=== PATIENT | female | born 1965 | race Caucasian/White ===

== ENCOUNTER → 2016-07-14 | Day surgery (SDC) | payer OTHER ==
[~2016-07-14] MED LIST: BUPIVACAINE/EPINEPHRINE 0.5% PF 10 ML VIAL ONE; HYDR-2376 PO; LACTATED RINGER'S 1000 ML INJ 1,000 ML ONE; LIDOCAINE 1%/EPINEPHrine 1:100,000 SOLN 20 ML VIAL ONE; MEPERIDINE HCL 25 MG/ML VIAL ONE; MIDAZOLAM HCL 2 MG/2 ML VIAL ONE; PROPOFOL 200 MG/20 ML AMP IV ONE; PROPOFOL 500 MG/50 ML BTL IV ONE; SODIUM CHLORIDE 0.9% INJ 10 ML ONE; VANCOMYCIN HCL 1000 MG VIAL ONE
--- NOTE | 2016-07-14 13:18 | TN ---
cc: CARINA WINTER M.D., RUBY ANNE E. M.D. DATE OF SURGERY: 07/14/2016 PREOPERATIVE DIAGNOSIS Breast cancer in need of neoadjuvant chemotherapy. POSTOPERATIVE DIAGNOSIS Breast cancer in need of neoadjuvant chemotherapy. PROCEDURE Placement of a left side Vvcsgv-U-Ygnm, first by attempted Seldinger technique, next attempted cutdown, next direct placement into the left subclavian vein with a Seldinger technique. ANESTHESIA TIVA. SURGEON Dr. Winter INDICATION this is a pleasant 51-year-old female who was found to have right-sided breast cancer. She is getting neoadjuvant chemotherapy. DETAILS OF PROCEDURE The patient was taken to the operating room and placed in supine position. After anesthesia her left shoulder is prepped with Betadine and she is given preoperative antibiotics. We anesthetize the area and infraclavicular area, attempt to cannulate the subclavian vein on a few attends, about five, able to cannulate the subclavian vein but the guidewire does not thread through. I do not know if it is narrowed but this is abandoned. We then do a cutdown identifying the small vein in the deltopectoral groove, isolating it with ties proximally and distally. We make a small venotomy and try to thread the guidewire into this branching vein. However, the vein is somewhat small and does not accommodate the guidewire and it tears. This small branch is then ligated. With the exposure of the vein I then attempt to do direct access to the subclavian which I am able to do without difficulty under fluoroscopic guidance. The guidewire that threads easily into the superior vena cava. The introducer dilator is then threaded over the guidewire under direct videoscopic surveillance. The dilator is then removed and the catheter is threaded over the introducer so it lays in the superior vena cava. The introducer is then removed. The catheter is cut at 22 cm and connected to the port. It aspirates blood quite easily and is flushed with heparinized saline solution. We then make a subcutaneous pocket, securing the port to the deep layer with 3-0 Vicryl. The deep layer is closed with 3-0 Vicryl and skin is closed with 4-0 Vicryl. Steri-Strips are applied. Sterile bandage applied. The patient tolerated the procedure well and had no immediate post-op complications. A stat. portable chest x-ray is done which shows the Akontb-U-Pxov in good position. Carina Winter MD JDB/BT /1:05 PM /1:11 PM
== END | disposition home or self-care (01) ==
LOC: ESDC 07:05
PROVIDERS: ATTEND Surgery
DX: Z45.2 Encounter for adjustment and management of vascular access device (principal); C50.911 Malignant neoplasm of unspecified site of right female breast
CPT/HCPCS: 00532; 36561; 77001; C1788; J1642; J2175; J2250; J3010; J3370; J7120

== ENCOUNTER → 2016-12-09 | Outpatient (CLI) | payer OTHER ==
[~2016-12-09] MED LIST changes: -BUPIVACAINE/EPINEPHRINE 0.5% PF 10 ML VIAL ONE; -LACTATED RINGER'S 1000 ML INJ 1,000 ML ONE; -LIDOCAINE 1%/EPINEPHrine 1:100,000 SOLN 20 ML VIAL ONE; -MEPERIDINE HCL 25 MG/ML VIAL ONE; -MIDAZOLAM HCL 2 MG/2 ML VIAL ONE; -PROPOFOL 200 MG/20 ML AMP IV ONE; -PROPOFOL 500 MG/50 ML BTL IV ONE; -SODIUM CHLORIDE 0.9% INJ 10 ML ONE; -VANCOMYCIN HCL 1000 MG VIAL ONE
[2016-12-09 11:22] LABS: AUTOMATED NEUTROPHIL # 10.3 TH/MM3 (1.8-7.7); BASOPHIL # 0.1 TH/MM3 (0-0.2); BASOPHIL % 0.4 % (0.0-2.0); EOSINOPHIL # 0.2 TH/MM3 (0-0.4); EOSINOPHIL % 1.5 % (0.0-4.0); HEMATOCRIT 39.9 % (35.0-46.0); HEMOGLOBIN 13.4 GM/DL (11.6-15.3); LYMPHOCYTE # 1.4 TH/MM3 (1.0-4.8); MEAN CELL VOLUME 91.8 FL (80.0-100.0); MEAN CORPUSCULAR HEMOGLOBIN 30.7 PG (27.0-34.0); MEAN CORPUSCULAR HGB CONC 33.5 % (32.0-36.0); MEAN PLATELET VOLUME 8.3 FL (7.0-11.0); MONO % 4.6 % (0.0-8.0); MONOCYTE # 0.6 TH/MM3 (0-0.9); NEUT % 82.5 % (16.0-70.0); PLATELET COUNT 305 TH/MM3 (150-450); RED BLOOD COUNT 4.35 MIL/MM3 (4.00-5.30); RED CELL DISTRIBUTION WIDTH 12.8 % (11.6-17.2); WHITE BLOOD COUNT 12.5 TH/MM3 (4.0-11.0)
== END ==
LOC: CPRE 08:40
PROVIDERS: ATTEND Surgery
DX: Z01.812 Encounter for preprocedural laboratory examination (principal); C50.811 Malignant neoplasm of overlapping sites of right female breast
CPT/HCPCS: 36415; 85025

== ENCOUNTER 2016-12-13 07:23 | Inpatient (IN) | payer OTHER ==
[~2016-12-13] VITALS: Ht 170.2 cm; Wt 66.1 kg
[2016-12-13] MEDS: POVIDONE IODINE 5% (ANTISEPSIS KIT) 4 APPLICATIONS EACH NARE PRN ×2 (08:40→18:35)
[2016-12-13] MEDS ORDERED: INSULIN HUMAN REGULAR 1,000 UNITS/10 ML VIAL SQ PRN (08:45)
[2016-12-13] MEDS ORDERED: SODIUM CHLORID 0.9% 500 ML IV PRN (08:45)
[2016-12-13] MEDS ORDERED: CHLORHEXIDINE GLUCONATE 2 % 1 PACK (2 CLOTHS) TOPICAL PRN (08:45)
[2016-12-13] MEDS ORDERED: METOPROLOL TARTRATE 25 MG TAB PO PRN (08:45)
[2016-12-13] MEDS ORDERED: LACTATED RINGER'S 1000 ML IV PRN (08:45)
[2016-12-13] MEDS ORDERED: VANCOMYCIN HCL 1000 MG ON-CALL/NS 250 ML IV SCH ×2 (08:45)
[2016-12-13 08:56] LABS: AUTOMATED NEUTROPHIL # 4.4 TH/MM3 (1.8-7.7); BASOPHIL % 0.6 % (0.0-2.0); EOSINOPHIL # 0.2 TH/MM3 (0-0.4); EOSINOPHIL % 2.9 % (0.0-4.0); HEMATOCRIT 36.3 % (35.0-46.0); HEMOGLOBIN 12.7 GM/DL (11.6-15.3); LYMPH % 20.4 % (9.0-44.0); LYMPHOCYTE # 1.3 TH/MM3 (1.0-4.8); MEAN CELL VOLUME 89.6 FL (80.0-100.0); MEAN CORPUSCULAR HEMOGLOBIN 31.2 PG (27.0-34.0); MEAN CORPUSCULAR HGB CONC 34.8 % (32.0-36.0); MONO % 6.8 % (0.0-8.0); MONOCYTE # 0.4 TH/MM3 (0-0.9); NEUT % 69.3 % (16.0-70.0); PLATELET COUNT 262 TH/MM3 (150-450); RED BLOOD COUNT 4.05 MIL/MM3 (4.00-5.30); RED CELL DISTRIBUTION WIDTH 12.8 % (11.6-17.2); WHITE BLOOD COUNT 6.3 TH/MM3 (4.0-11.0)
[2016-12-13] MEDS ORDERED: ACETAMINOPHEN 1000 MG/100 ML VIAL IV ONE (09:00)
[2016-12-13 09:29] VITALS: BP 122/85; PULSE 75; RESP 14; TEMP 97.9; O2SAT 98
[2016-12-13] MEDS ORDERED: APREPITANT 40 MG CAP PO ONE (10:00)
--- NOTE | 2016-12-13 11:19 | RADRPT ---
EXAM DATE/TIME: 12/13/2016 09:25 [facility] COMPARISON: No previous studies available for comparison. INDICATIONS : Breast cancer. MEDICAL HISTORY : Carcinoma, breast. Osteoarthritis. SURGICAL HISTORY : Right femur fracture repair. Left patella surgery. Left tibia surgery. Right knee scope. ENCOUNTER: Initial ACUITY: 4-6 months PAIN SCORE: 0/10 LOCATION: Right breast. AREA EVALUATED: Right breast, upper outer quadrant at 11 o'clock Radiopharmaceutical dose: 1.1 Tc99m [place] colloid FINDINGS: Breast ultrasound was performed prior to lymphoscintigraphy. CONCLUSION: Ultrasound-guided lymphoscintigraphy injections. Jabier Blue MD on December 13, 2016 at 11:16 Board Certified Radiologist. This report was verified electronically.
[2016-12-13] MEDS ORDERED: ePHEDrine/NS 25 MG/5 ML SYR IV ONE (12:00)
[2016-12-13] MEDS ORDERED: PROPOFOL 200 MG/20 ML AMP IV ONE (12:00)
[2016-12-13] MEDS ORDERED: NEOSTIGMINE 3 MG/3 ML SYR IV ONE (12:00)
[2016-12-13] MEDS ORDERED: ONDANSETRON HCL 4 MG/2 ML VIAL IV PUSH ONE (12:00)
[2016-12-13] MEDS ORDERED: GLYCOPYRROLATE 1 MG/5 ML SYRINGE IV PUSH ONE (12:00)
[2016-12-13] MEDS ORDERED: LACTATED RINGER'S 1000 ML INJ 2,000 ML IV ONE (12:00)
[2016-12-13] MEDS ORDERED: LIDOCAINE HCL 1% PF 5 ML AMPULE OTHER ONE (12:00)
[2016-12-13] MEDS ORDERED: DEXAMETHASONE SOD PHOS 4 MG/ML VIAL IV ONE (12:00)
[2016-12-13] MEDS ORDERED: NORMOSOL R INJ 1,000 ML IV ONE (12:00)
[2016-12-13] MEDS ORDERED: MIDAZOLAM HCL 2 MG/2 ML VIAL IV ONE (12:00)
[2016-12-13] MEDS ORDERED: ROCURONIUM INJ 50 MG/5 ML SYRINGE IV PUSH ONE (12:00)
[2016-12-13] MEDS ORDERED: PHENYLEPH/NS 1000 MCG/10 ML SYR IV ONE (12:00)
[2016-12-13] MEDS ORDERED: MORPHINE SULFATE 4 MG/ML INJ IV ONE (12:00)
[2016-12-13] MEDS ORDERED: VECURONIUM BROMIDE 20 MG VIAL IV ONE (12:00)
[2016-12-13] MEDS: ceFAZolin 2 GM PREMIX 50 ML IV SCH (12:12)
--- NOTE | 2016-12-13 12:12 | EKG ---
Date Performed: 12/13/2016 Time Performed: 08:13:42 PTAGE: 51 years EKG: Sinus rhythm NORMAL ECG NO PREVIOUS TRACING DOCTOR: Epifanio Villanueva Interpretating Date/Time 12/13/2016 12:11:27
--- NOTE | 2016-12-13 12:12 | EKG ---
Date Performed: 12/13/2016 Time Performed: 08:13:42 PTAGE: 51 years EKG: Sinus rhythm NORMAL ECG NO PREVIOUS TRACING DOCTOR: Epifanio Villanueva Interpretating Date/Time 12/13/2016 12:11:27
--- NOTE | 2016-12-13 12:12 | EKG ---
Date Performed: 12/13/2016 Time Performed: 08:13:42 PTAGE: 51 years EKG: Sinus rhythm NORMAL ECG NO PREVIOUS TRACING DOCTOR: Epifanio Villanueva Interpretating Date/Time 12/13/2016 12:11:27
[2016-12-13] MEDS ORDERED: HEPARIN SODIUM - SQ 10,000 UNITS/ML VIAL ONE (12:29)
[2016-12-13] MEDS ORDERED: BUPIVACAINE/EPINEPHRINE 0.5% 50 ML VIAL ONE (12:29)
[2016-12-13] MEDS ORDERED: TRIAMCINOLONE ACETONIDE 40 MG/ML VIAL ONE (12:30)
[2016-12-13] MEDS ORDERED: LIDOCAINE 1%/EPINEPHrine 1:100,000 SOLN 50 ML VIAL ONE (12:31)
[2016-12-13] MEDS ORDERED: GENTAMICIN SULFATE 80 MG/2 ML VIAL ONE (12:31)
[2016-12-13] MEDS ORDERED: FLUORESCEIN SOD 10% SOLN 500 MG/5 ML AMP ONE (12:31)
[2016-12-13] MEDS ORDERED: ceFAZolin INJ 1,000 MG VIAL ONE (12:31)
[2016-12-13] MEDS ORDERED: KETAMINE HCL 500 MG/5 ML VIAL ONE (12:44)
--- NOTE | 2016-12-13 13:01 | RADRPT ---
EXAM DATE/TIME: 12/13/2016 09:56 [facility] COMPARISON: No previous studies available for comparison. INDICATIONS : Right breast cancer. DOSE: 1.1 mCi Tc99m Sulfur Colloid INJECTION SITE: Right Breast IMAGING: SPECT/CT imaging with fusion was performed. RADIATION DOSE: CTDIvol (mGy) MEDICAL HISTORY : Carcinoma, breast. SURGICAL HISTORY : Orthopedic. ENCOUNTER: Initial ACUITY: 1 day PAIN SCALE: LOCATION: Right Breast. TECHNIQUE: Injection(s) of sulfur colloid was performed under sonographic guidance. Static imaging was obtained .. FINDINGS: After radioisotope injection this subcutaneously and subdermally within the right breast lymphoscinti graphy study was performed. AP and lateral views confirm a sentinel node uptake within the right axil la. The sentinel node was marked in the AP and lateral views and the patient was sent for surgical re section. CONCLUSION: Positive sentinel node uptake within the right axilla which was marked for resection. Jabier Blue MD on December 13, 2016 at 12:57 Board Certified Radiologist. This report was verified electronically.
[2016-12-13] MEDS ORDERED: PROPOFOL 500 MG/50 ML INJ 50 ML ONE (16:36)
[2016-12-13] MEDS ORDERED: BACITRACIN IM FOR SOLN 50,000 UNIT VIAL IRRIGATION ONE (18:35)
[2016-12-13] MEDS ORDERED: ACETAMINOPHEN 1000 MG/100 ML 100 ML IV ONE (19:09)
[2016-12-13 19:11] LABS: HEMATOCRIT 26.3 % (35.0-46.0); MEAN CELL VOLUME 90.3 FL (80.0-100.0); MEAN CORPUSCULAR HGB CONC 34.4 % (32.0-36.0); MEAN PLATELET VOLUME 7.7 FL (7.0-11.0); PLATELET COUNT 236 TH/MM3 (150-450); RED BLOOD COUNT 2.91 MIL/MM3 (4.00-5.30); RED CELL DISTRIBUTION WIDTH 12.7 % (11.6-17.2); WHITE BLOOD COUNT 13.1 TH/MM3 (4.0-11.0)
[2016-12-13] MEDS ORDERED: MUPIROCIN 2% OINT 22 GM TUBE ONE (19:25)
[2016-12-13] MEDS ORDERED: *morphine SULFATE 8 MG/ML PERIprocedure ONLY ONE ×3 (20:03→20:42)
[2016-12-13] MEDS ORDERED: DEXTROSE 5%-LACTATED RING INJ 1,000 ML ONE (20:34)
[2016-12-13 20:53] VITALS: BP 122/59; PULSE 57; RESP 10; TEMP 97.6; O2SAT 98
[2016-12-13] MEDS: DEXTROSE 5%-LACTATED RING INJ 1,000 ML IV SCH (21:00)
[2016-12-13] MEDS: NAPROXEN 500 MG TAB PO SCH (21:00)
--- NOTE | 2016-12-13 21:05 | RADRPT ---
EXAM DATE/TIME: 12/13/2016 20:08 [facility] COMPARISON: No previous studies available for comparison. INDICATIONS : Evaluate central line placement MEDICAL HISTORY : Carcinoma, breast. Osteoarthritis SURGICAL HISTORY : Right femur fracture repair. Left patella surgery. Left tibia surgery. Right knee scope ENCOUNTER: Initial ACUITY: 1 day PAIN SCORE: Non-responsive. LOCATION: chest FINDINGS: A single AP semierect view of the chest was obtained and demonstrates a right internal jugular centra l venous line in place with no pneumothorax. There is hazy opacity projected over the left infrahilar region and left lung base. A surgical drain is noted in place. There is a right breast implant with surgical drain as well. There are multiple overlying skin ashely. CONCLUSION: 1. Right internal jugular central venous line with no visualized pneumothorax. 2. Hazy opacity projected over the left lung base which could represent infiltrate versus overlying s oft tissue swelling from the surgery. Edmond Robison MD on December 13, 2016 at 21:02 Board Certified Radiologist. This report was verified electronically.
[2016-12-13] MEDS ORDERED: *HYDROmorphone PF 1 MG VIAL PERIprocedural Use ONLY ONE (21:06)
[2016-12-13] MEDS ORDERED: SODIUM CHLORIDE FLUSH PRN IV FLUSH (21:15)
[2016-12-13 23:24] VITALS: BP 125/61; PULSE 87; RESP 14; TEMP 97.3; O2SAT 99
[2016-12-13 23:40] VITALS: BP 111/57; PULSE 62; RESP 12; TEMP 97.1; O2SAT 96
[2016-12-14] MEDS: MORPHINE SULFATE 2 MG/ML INJ IV PRN ×2 (00:01→05:51)
[2016-12-14 02:03] VITALS: BP 120/68; PULSE 89; RESP 12; TEMP 97.5; O2SAT 99
[2016-12-14] MEDS: MORPHINE SULFATE 8 MG/ML INJ IV PUSH PRN ×2 (02:12→09:40)
[2016-12-14] MEDS: ACETAMINOPHEN 1000 MG/100 ML 100 ML IV SCH ×2 (02:13→09:32)
[2016-12-14 04:34] VITALS: BP 111/59; PULSE 84; RESP 18; TEMP 95.6; O2SAT 96
[2016-12-14] MEDS: DEXTROSE 5%-LACTATED RING INJ 1,000 ML IV SCH (05:54)
[2016-12-14 05:57] LABS: HEMATOCRIT 33.9 % (35.0-46.0); HEMOGLOBIN 11.7 GM/DL (11.6-15.3)
--- NOTE | 2016-12-14 07:39 | MP ---
cc: DARION ASHLEY M.D. DATE OF SURGERY 12/13/2016 PREOPERATIVE DIAGNOSIS 1. Carcinoma right breast very large. 2. High-risk breast cancer left breast. 3. Post chemotherapy treatment of breast and patient. POSTOPERATIVE DIAGNOSIS 1. Carcinoma right breast very large. 2. High-risk breast cancer left breast. 3. Post chemotherapy treatment of breast and patient. OPERATION PERFORMED 1. Right modified radical mastectomy and sentinel node biopsies of the right breast by Dr. Winter. 2. Left modified radical mastectomy by Dr. Ashley. 3. Right latissimus dorsi myocutaneous flap. 4. Right pectoralis major muscle flap. 5. Right breast reconstruction with submuscular silicone [place] textured gel high-profile 400 cc mammary prosthesis, reference number [id number], serial number [id number], 400 cc on the right, right breast reconstruction. 6. Left latissimus dorsi myocutaneous flap, left pectoralis major muscle flap, left breast reconstruction with [place] silicone textured high profile gel-filled mammary prosthesis reference [id number], serial number [id number], 400 cc breast reconstruction, left. SURGEON Dr. Darion Ashley SAND MIXER OPERATOR ANESTHESIA General endotracheal ESTIMATED BLOOD LOSS 1000 cc COMPLICATIONS None DRAINS One 7-mm Dawson-Hughes drain to the right axilla and breast reconstruction, one to the left chest, breast and axilla, one to the right donor site of the latissimus dorsi and one to the donor site of the left latissimus dorsi. DESCRIPTION OF OPERATION The patient was seen in the preop area. The midline was marked iliac crest down to the latissimus dorsi muscle were marked. The ellipse of skin to be removed starting superiorly medially going down inferior laterally was marked over the latissimus dorsi muscle on both sides. The elliptical excision to remove the nipple-areolar complex and then the nipple across the breast was marked. The patient was given IV vancomycin and Ancef in the preop area. She was brought to the OR where she was placed on the operating table. She was prewarmed with a bear hugger. Pneumatic compression garments placed on her lower extremities. A time-out was done, all concurred. Using about 1500 cc of Ringer's lactate with Xylocaine and epinephrine, the retromammary space was ejected with this fluid as was the right and left back. Dr. Winter performed a right modified radical mastectomy with sentinel node biopsies. He will dictate that separately. At this time, Dr. Ashley did an elliptical excision as drawn going down through the skin and subcutaneous tissue, superficial fascia, and to just below the subcutaneous tissue. The subcutaneous tissue was dissected up to just below the clavicle to just off the midline out into the axilla, across the axilla down to the latissimus dorsi muscle which was identified. The dissection was carried out inferiorly, but just below the inframammary crease. The breast tissue was then dissected off the chest wall with the gold implant intact dissecting and taking the pectoralis fascia with it and dissecting across the axilla and removing the lower axillary lymph nodes which were marked with a black silk suture and sent to pathology for examination. Meticulous hemostasis was obtained with electrocautery. The latissimus dorsi muscle was dissected from the subcutaneous tissue on the back and up to as up high as possible and as low as possible with the latissimus dorsi muscle and dissected down off the serratus anterior. The thoracodorsal nerve, artery and vein were identified and preserved from injury. The pectoralis major muscle was elevated and dissected up to the level of the clavicle, released three-quarters of the way off the medial area. The area was packed. The similar dissection was carried out on the right latissimus dorsi muscle and pectoralis major muscle. The patient was then turned to the right side up, left side down and axillary roll was inserted. She was very carefully positioned, stanley bag was inflated and the ellipse of skin that had been marked was then cut full-thickness down through the skin, subcutaneous tissue, and superficial fascia down to the latissimus dorsi muscle. The latissimus dorsi muscle was dissected from the overlying soft tissue up to into the dissection on the axilla and up around the back and down to the iliac crest. Muscle was dissected off the chest wall and off the serratus anterior and away from the trapezius. It was transected inferiorly and then rotated into the defect. The meticulous hemostasis obtained with electrocautery. The wound was drained with a stab wound with a 7-mm Dawson-Hughes drain sutured in place with 2-0 Vicryl suture. The subcutaneous tissue was sutured down to the fascia of the back and chest wall with three rows of interrupted running #1 Vicryl sutures to try to close off the space. The superficial fascia was then closed with a running 2-0 PDS suture and then the skin was closed with patient 2-0 PDS sutures and finally it was glued with surgical glue and allowed to dry. The patient was turned from the right side up to the right side down left side up and a similar procedure was carried on the left latissimus dorsi muscle. It was dissected down to the iliac crest, up into the axillary area off the serratus anterior and then trapezius, released and rotated into the defect of the mastectomy. The back wound was closed in a similar manner closing the space with a running #1 Vicryl, closing the wound with a running 2-0 PDS suture and the skin was closed with interrupted buried subcuticular 4-0 PDS sutures and then Dermabond skin closure. The patient was then turned into a supine position with arms out. The breasts and chest were prepped and draped sterilely again and the right breast was addressed. The ashely that had been placed to close the skin wound and protect the flap were removed and the latissimus dorsi muscle was sutured up to the pectoralis fascia starting laterally and going right below the clavicle suturing with a running 2-0 PDS suture going all the way to the medial area and tying and then taking a second PDS suture taking the latissimus muscle and suturing it high on the chest wall in the anterior axillary area and then suturing it down. The muscle was turned over and the pectoralis major muscle was sutured up to the back of the latissimus dorsi with a running 2-0 PDS suture. The medial closure was then carried down to the bottom of the inframammary crease medially and then laterally. Unfortunately, there were no trial implants that could be used. There was no a Crespo funnel, so the pocket was instilled with bacitracin, Ancef, gentamicin, Marcaine and Betadine and then the surgeon's gloves were changed and very carefully the implant was inserted and positioned. The inferior closure was complete. The skin was then brought over the new breast and sutured with interrupted vertical mattress sutures of 4-0 Prolene and then skin ashely. This gave a very nice good projection and the skin was warm, pink and viable with good capillary filling. The left breast was then reconstructed in a similar manner creating the latissimus dorsi suturing to the chest wall medially and laterally and superiorly and suturing the pectoralis major up to the back of the latissimus dorsi muscle in a similar manner. The surgeon's gloves were again changed after instilling the pocket with bacitracin, Ancef, gentamicin and Marcaine and Betadine. The gloves were changed and a sterile no-touch technique as possible, the implant was inserted and closure was complete. The skin was closed with interrupted vertical mattress sutures of 4-0 Prolene and skin ashely closed the wounds nicely. She had relatively good symmetry and projection and the skin flaps were warm, pink and viable with good capillary filling. Bactroban ointment was applied, 4x4s, ABD's were applied. Bactroban was applied around the drains and gauze was applied around the drains. The patient was sat up, the back was cleaned and the dressings were applied and the patient was placed in a bra. The patient was then awakened, extubated, transferred to a stretcher and sent to recovery in satisfactory condition. MD MAN Posadsa/KOBY /7:42 PM /7:12 AM
[2016-12-14 07:53] VITALS: BP 116/63; PULSE 89; RESP 18; TEMP 98.3; O2SAT 99
[2016-12-14] MEDS ORDERED: MUPIROCIN 2% OINT 22 GM TUBE TOPICAL ONE ×2 (08:15→12:00)
[2016-12-14] MEDS ORDERED: BACITRACIN TOP OINT 15 GM TUBE TOPICAL ONE (08:15)
--- NOTE | 2016-12-14 08:46 | HHI.DS ---
Discharge Summary Admission Date Dec 13, 2016 at 07:23 Discharge Date: Dec 14, 2016 Admitting Diagnosis Patient under went bilateral mastectomies and breast reconstruction with latisimis Dorsi myocutaneous flap, pectoralis major flap and sub muscular textured gel implants. She is one day post op doing well. She required 2 units packed cells last PM but her H/H this morning is 33 and 11.7. Breast have excellent contour and shape, skin is warm pink and viable. There is no evidence of seroma or hematoma. Start ROM arms and ambulation. Mendez is out and patient has voided. Will DC after lunch and shower, start dressing changes. To see me on Tuesday. CBC/BMP: 12/14/16 0526 Significant Findings Laboratory Tests Test 12/13/16 08:30 12/13/16 18:52 12/14/16 05:26 White Blood Count 13.1 TH/MM3 (4.0-11.0) Red Blood Count 2.91 MIL/MM3 (4.00-5.30) Hemoglobin 9.0 GM/DL (11.6-15.3) Hematocrit 26.3 % (35.0-46.0) 33.9 % (35.0-46.0) Pt Condition on Discharge: Good Discharge Disposition: Discharge Home Discharge Instructions DIET: Follow Instructions for: As Tolerated, No Restrictions Activities you can perform: Shower/Bath Activities to avoid: Contact Sports, Lifting/Bending, Prolonged Standing, Strenuous Activity, Driving, Sexual Activity Additional Information Keep scheduled appoint on Tuesday, for dc already at home. Patient needs to milk drains q8h and as needed, measure and record each drain for 24 hours. Darion Ashley III, MD Dec 14, 2016 08:46
[2016-12-14] MEDS ORDERED: SODIUM CHLORIDE FLUSH BID IV FLUSH SCH (09:00)
[2016-12-14] MEDS ORDERED: ONDANSETRON ODT 4 MG TAB SL PRN (09:30)
[2016-12-14] MEDS: NAPROXEN 500 MG TAB PO SCH (09:31)
--- NOTE | 2016-12-14 09:32 | MP ---
cc: DEEPTHI ASHLEY M.D. CARINA WINTER M.D. BIMAL VILLASEÑOR RUBY ANNE E. M.D. DATE OF SURGERY 12/13/2016 PREOPERATIVE DIAGNOSIS Right-sided breast cancer treated with neoadjuvant chemotherapy with good clinical response. POSTOPERATIVE DIAGNOSIS Right-sided breast cancer treated with neoadjuvant chemotherapy with good clinical response. PROCEDURE PERFORMED BY TN 1. Right mastectomy with axillary node dissection with identification of six sentinel nodes. 2. Removal of right breast implant. PROCEDURE PERFORMED BY DR. ASHLEY See his operative note. SURGEON Dr. Winter PLASTIC SURGEON Dr. Ashley ANESTHESIA General INDICATIONS This is a pleasant lady who had a fairly sizable right-sided breast cancer treated with neoadjuvant chemotherapy. She had an excellent response. On clinical exam and radiographic exam, she has had a couple of discussions with the plastic surgeon, Dr. Ashley about reconstruction options. She has elected to proceed with bilateral mastectomy and immediate reconstruction. See Dr. Ashley' notes and operative note. PROCEDURE The patient was taken to the operating room, placed in the supine position. After prepping with Betadine per Dr. Ashley' request and technique, she did get some antibiotics preoperatively. Dr. Ashley had marked her for the mastectomy. First, I made an elliptical incision in the right breast that had been marked out equal to the left side. We make superior and inferior flaps. It is noted that she has a sizeable implant and most of the implant is just under the skin. We get good tissue margins just under the skin layer. To facilitate further dissection, I removed the implant. This gives us more room for facilitating dissection of the superior flap all the way up to the clavicle, a medial flap to the sternum and inferior flap to the abdominal wall musculature to elevate the breast tissue off the pectoralis muscle up into the axillary region and passed this off the field. A stitch is placed at the 12 o'clock position for orientation. We then identified six sentinel nodes in the axillary region and sentinel node #1 which has an ex vivo count of 9662. A second sentinel node #2, which has an ex vivo count of 254. A third sentinel node with an ex vivo count of 1108 and a fourth sentinel node with an ex vivo count of 851. A number five [place] node with an ex vivo count of 458 and the last sixth lymph node with an ex vivo count 114. No other lymphatic adenopathy is noted. We then irrigate the area and at this portion of the procedure Dr. Ashley was proceeding with reconstruction. I left the room. In addition, he took the left sided Dfvzqf-H-Zbyl out as well. See his operative note for a more detailed description of his procedure. MD KASH Lerma/KOBY /3:49 PM /9:21 AM
--- NOTE | 2016-12-14 09:32 | MP ---
cc: DEEPTHI ASHLEY M.D. CARINA WINTER M.D. BIMAL VILLASEÑOR RUBY ANNE E. M.D. DATE OF SURGERY 12/13/2016 PREOPERATIVE DIAGNOSIS Right-sided breast cancer treated with neoadjuvant chemotherapy with good clinical response. POSTOPERATIVE DIAGNOSIS Right-sided breast cancer treated with neoadjuvant chemotherapy with good clinical response. PROCEDURE PERFORMED BY [place] 1. Right mastectomy with axillary node dissection with identification of six sentinel nodes. 2. Removal of right breast implant. PROCEDURE PERFORMED BY DR. ASHLEY See his operative note. SURGEON Dr. Winter PLASTIC SURGEON Dr. Ashley ANESTHESIA General INDICATIONS This is a pleasant lady who had a fairly sizable right-sided breast cancer treated with neoadjuvant chemotherapy. She had an excellent response. On clinical exam and radiographic exam, she has had a couple of discussions with the plastic surgeon, Dr. Ashley about reconstruction options. She has elected to proceed with bilateral mastectomy and immediate reconstruction. See Dr. Ashley' notes and operative note. PROCEDURE The patient was taken to the operating room, placed in the supine position. After prepping with Betadine per Dr. Ashley' request and technique, she did get some antibiotics preoperatively. Dr. Ashley had marked her for the mastectomy. First, I made an elliptical incision in the right breast that had been marked out equal to the left side. We make superior and inferior flaps. It is noted that she has a sizeable implant and most of the implant is just under the skin. We get good tissue margins just under the skin layer. To facilitate further dissection, I removed the implant. This gives us more room for facilitating dissection of the superior flap all the way up to the clavicle, a medial flap to the sternum and inferior flap to the abdominal wall musculature to elevate the breast tissue off the pectoralis muscle up into the axillary region and passed this off the field. A stitch is placed at the 12 o'clock position for orientation. We then identified six sentinel nodes in the axillary region and sentinel node #1 which has an ex vivo count of 9662. A second sentinel node #2, which has an ex vivo count of 254. A third sentinel node with an ex vivo count of 1108 and a fourth sentinel node with an ex vivo count of 851. A number five [place] node with an ex vivo count of 458 and the last sixth lymph node with an ex vivo count 114. No other lymphatic adenopathy is noted. We then irrigate the area and at this portion of the procedure Dr. Ashley was proceeding with reconstruction. I left the room. In addition, he took the left sided Imvcxe-A-Zfgl out as well. See his operative note for a more detailed description of his procedure. MD KASH Lerma/KOBY /3:49 PM /9:21 AM
== END 2016-12-14 11:13 | disposition home or self-care (01) | DRG 581 ==
LOC: HSDI 07:23 → EDSTATUS 13:30 → HSDI 14:56 → N06B 22:16
PROVIDERS: ADMIT Surgery; ATTEND Surgery
PROC: 0KXG0Z5 Transfer Left Trunk Muscle, Latissimus Dorsi Myocutaneous Flap, Open Approach (ICD-10-PCS; 2016-12-13)
PROC: 0HPT0JZ Removal of Synthetic Substitute from Right Breast, Open Approach (ICD-10-PCS; 2016-12-13)
PROC: 07B50ZX Excision of Right Axillary Lymphatic, Open Approach, Diagnostic (ICD-10-PCS; 2016-12-13)
PROC: C71LYZZ Planar Nuclear Medicine Imaging of Upper Chest Lymphatics using Other Radionuclide (ICD-10-PCS; 2016-12-13)
PROC: 30233N1 Transfusion of Nonautologous Red Blood Cells into Peripheral Vein, Percutaneous Approach (ICD-10-PCS; 2016-12-13)
PROC: 0HTV0ZZ Resection of Bilateral Breast, Open Approach (ICD-10-PCS; principal; 2016-12-13 13:18)
PROC: 0KXF0Z5 Transfer Right Trunk Muscle, Latissimus Dorsi Myocutaneous Flap, Open Approach (ICD-10-PCS; 2016-12-13 13:18)
DX: C50.411 Malignant neoplasm of upper-outer quadrant of right female breast (principal); M19.90 Unspecified osteoarthritis, unspecified site; Z17.1 Estrogen receptor negative status [ER-]; Z92.21 Personal history of antineoplastic chemotherapy; Z87.891 Personal history of nicotine dependence; Z88.0 Allergy status to penicillin
CPT/HCPCS: 36415; 36430; 71010; 76642; 78195; 85014; 85018; 85025; 85027; 86850; 86900; 86901; 86920; 88305; 88307; 93005; A9541; C1789; J0131; J0690; J1100; J1170; J1580; J1644; J2250; J2270; J2370; J2405; J2710; J3010; J3301; J3370; J7050; J7120; J7121; J8501; P9016

== ENCOUNTER → 2017-03-09 | Outpatient (CLI) | payer OTHER ==
[~2017-03-09] MED LIST changes: +LIDOCAINE HCL 1% 20 ML VIAL ONE
[2017-03-09 14:33] VITALS: BP 108/64; PULSE 75; RESP 14; TEMP 98.6; O2SAT 98
--- NOTE | 2017-03-09 15:47 | RADRPT ---
EXAM DATE/TIME: 03/09/2017 14:36 [facility] COMPARISON: No previous studies available for comparison. INDICATIONS : Right breast aspiration. Post bilateral mastectomy. MEDICAL HISTORY : Carcinoma, breast. SURGICAL HISTORY : Mastectomy, bilateral. Right knee surgery. ENCOUNTER: Initial ACUITY: 3 days PAIN SCORE: 7/10 LOCATION: Right breast. FLUID: Total volume of 250 of cloudy yellow. fluid was removed. Fluid was sent to lab for ordered studies. Post procedure scanning reveals no hematoma or other complication. TECHNIQUE: 1. Ultrasound guidance for needle aspiration. 2. Aspiration. The risks, benefits and alternatives to the procedure were explained and verbal and written consent w as obtained. The site was prepped in sterile fashion. Full sterile technique was used, including ca p, mask, sterile gloves and gown and a large sterile sheet. Hand hygiene and 2% chlorhexidine and/or betadine/alcohol prep was utilized per protocol for cutaneous antisepsis. The skin and subcutaneous tissues were infiltrated with local anesthetic solution. Sterile gel and sterile probe cover were u tilized for ultrasound guidance. Under direct ultrasound guidance an 18 gauge needle was placed in the appearance or trauma right [address] st surrounding the implant.. 250 cc of cloudy yellow proteinaceous fluid was removed and sent for c ulture and sensitivity. This resulted in immediate symptomatic improvement. I will see her Tuesday afternoon for followup. CONCLUSION: Uncomplicated ultrasound guided aspiration seroma right breast. Naga Rodriguez MD FACR on March 09, 2017 at 15:43 Board Certified Radiologist. This report was verified electronically. 250 cc of
== END ==
LOC: HRAD 14:08
PROVIDERS: ATTEND Plastic Surgery
DX: L76.34 Postprocedural seroma of skin and subcutaneous tissue following other procedure (principal); C50.912 Malignant neoplasm of unspecified site of left female breast
CPT/HCPCS: 19000; 76942; 87070; 87205

== ENCOUNTER → 2017-03-16 | Outpatient (CLI) | payer OTHER ==
[~2017-03-16] MED LIST changes: +AMIK4INJ2 IV; +EPIN1INJ21 IV PUSH; +EPIN1INJ21 SQ; +SOLU250I IV PUSH
[2017-03-16 12:38] VITALS: BP 111/66; PULSE 83; RESP 14; TEMP 97; O2SAT 97
--- NOTE | 2017-03-16 14:33 | RADRPT ---
EXAM DATE/TIME: 03/16/2017 12:11 [facility] COMPARISON: US GUIDED BREAST ASPIRATION RIGHT, March 09, 2017, 14:36. INDICATIONS : Right breast aspiration. Post bilateral mastectomy. MEDICAL HISTORY : Carcinoma, breast. SURGICAL HISTORY : Mastectomy, bilateral. Right knee surgery. ENCOUNTER: Subsequent ACUITY: 4 - 6 days PAIN SCORE: 3/10 LOCATION: Right breast. FLUID: Total volume of 50 cc of milky fluid was removed. Fluid was sent to lab for ordered studies. Post procedure scanning reveals no hematoma or other complication. TECHNIQUE: 1. Ultrasound guidance for needle aspiration. 2. Aspiration. The risks, benefits and alternatives to the procedure were explained and verbal and written consent w as obtained. The site was prepped in sterile fashion. Full sterile technique was used, including ca p, mask, sterile gloves and gown and a large sterile sheet. Hand hygiene and 2% chlorhexidine and/or betadine/alcohol prep was utilized per protocol for cutaneous antisepsis. The skin and subcutaneous tissues were infiltrated with local anesthetic solution. Sterile gel and sterile probe cover were u tilized for ultrasound guidance. 30 cc of very thick viscous fluid removed and sent for stat Gram stain and culture.. CONCLUSION: Uncomplicated ultrasound guided aspiration. Biliary Gram stain is numerous WBCs, no organisms. Naga Rodriguez MD FACR on March 16, 2017 at 14:29 Board Certified Radiologist. This report was verified electronically.
== END ==
LOC: CPRE 12:01
PROVIDERS: ATTEND Specialist
DX: N60.01 Solitary cyst of right breast (principal); A31.8 Other mycobacterial infections
CPT/HCPCS: 10160; 76942; 87070; 87205

== ENCOUNTER → 2017-03-22 | Outpatient (CLI) | payer OTHER ==
[~2017-03-22] MED LIST changes: -AMIK4INJ2 IV; -EPIN1INJ21 IV PUSH; -EPIN1INJ21 SQ; -LIDOCAINE HCL 1% 20 ML VIAL ONE; -SOLU250I IV PUSH
== END ==
LOC: CLAB 10:26
PROVIDERS: ATTEND Specialist
DX: C50.411 Malignant neoplasm of upper-outer quadrant of right female breast (principal); C50.911 Malignant neoplasm of unspecified site of right female breast; R91.1 Solitary pulmonary nodule
CPT/HCPCS: 36415; 84703

== ENCOUNTER → 2017-03-23 | Outpatient (CLI) | payer OTHER ==
[2017-03-23 15:45] VITALS: BP 120/69; PULSE 89; RESP 14; TEMP 98.5; O2SAT 98
--- NOTE | 2017-03-23 16:47 | RADRPT ---
EXAM DATE/TIME: 03/23/2017 15:34 [facility] COMPARISON: US GUIDED BREAST ASPIRATION RIGHT, March 16, 2017, 12:11. INDICATIONS : Right breast fluid collection. MEDICAL HISTORY : Carcinoma, breast. SURGICAL HISTORY : Mastectomy, bilateral. Right knee surgery. ENCOUNTER: [facility] ACUITY: 1 week PAIN SCORE: 7/10 LOCATION: Right breast. FLUID: Total volume of 135 cc of cloudy white fluid was removed. Fluid was sent to lab for ordered studies. Post procedure scanning reveals no hematoma or other complication. TECHNIQUE: 1. Ultrasound guidance for needle aspiration. 2. Aspiration. The risks, benefits and alternatives to the procedure were explained and verbal and written consent w as obtained. The site was prepped in sterile fashion. Full sterile technique was used, including ca p, mask, sterile gloves and gown and a large sterile sheet. Hand hygiene and 2% chlorhexidine and/or betadine/alcohol prep was utilized per protocol for cutaneous antisepsis. The skin and subcutaneous tissues were infiltrated with local anesthetic solution. Sterile gel and sterile probe cover were u tilized for ultrasound guidance. With the patient on the ultrasound table, ultrasound imaging was used to select the most appropriate approach for aspiration 18 gauge needle was inserted and direct ultrasound visualization into the lar gest fluid pocket in with aspiration and palpation 135 cc of yellow viscous fluid were removed and se nt for cytology and culture. CONCLUSION: Uncomplicated ultrasound guided aspiration. This resulted in significant improvement. Naga Rodriguez MD FACR on March 23, 2017 at 16:44 Board Certified Radiologist. This report was verified electronically. 135
== END ==
LOC: HRAD 15:07
PROVIDERS: ATTEND Radiology Body Imaging
DX: N61.1 Abscess of the breast and nipple (principal); C50.911 Malignant neoplasm of unspecified site of right female breast
CPT/HCPCS: 10160; 76942; 87070; 87205; 88173; 88305

== ENCOUNTER 2017-03-29 11:38 | Day surgery (SDC) | payer OTHER ==
[2017-03-29 11:40] VITALS: BP 104/81; PULSE 84; RESP 20; TEMP 98; O2SAT 100
[2017-03-29 12:09] LABS: AUTOMATED NEUTROPHIL # 5.1 TH/MM3 (1.8-7.7); BASOPHIL % 0.6 % (0.0-2.0); EOSINOPHIL # 0.1 TH/MM3 (0-0.4); EOSINOPHIL % 1.7 % (0.0-4.0); HEMATOCRIT 35.9 % (35.0-46.0); HEMOGLOBIN 12.2 GM/DL (11.6-15.3); LYMPH % 15.6 % (9.0-44.0); LYMPHOCYTE # 1.1 TH/MM3 (1.0-4.8); MEAN CELL VOLUME 86.3 FL (80.0-100.0); MEAN CORPUSCULAR HEMOGLOBIN 29.4 PG (27.0-34.0); MEAN CORPUSCULAR HGB CONC 34.1 % (32.0-36.0); MEAN PLATELET VOLUME 7.2 FL (7.0-11.0); MONO % 6.8 % (0.0-8.0); MONOCYTE # 0.5 TH/MM3 (0-0.9); NEUT % 75.3 % (16.0-70.0); PLATELET COUNT 444 TH/MM3 (150-450); RED BLOOD COUNT 4.16 MIL/MM3 (4.00-5.30); RED CELL DISTRIBUTION WIDTH 13.9 % (11.6-17.2); WHITE BLOOD COUNT 6.8 TH/MM3 (4.0-11.0)
[2017-03-29 12:27] LABS: ALBUMIN 3.7 GM/DL (3.4-5.0); AST (GOT) 7 U/L (15-37); BICARBONATE 30.9 MEQ/L (21.0-32.0); BLOOD UREA NITROGEN 16 MG/DL (7-18); CALCIUM 9.2 MG/DL (8.5-10.1); CHLORIDE 102 MEQ/L (98-107); CREATININE 0.69 MG/DL (0.50-1.00); GLOMERULAR FILTRATION RATE 90 ML/MIN (>89); GLUCOSE,RANDOM 98 MG/DL (74-106); SODIUM (NA) 137 MEQ/L (136-145)
[2017-03-29 12:28] LABS: ALT (GPT) 11 U/L (10-53)
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
[2017-03-29 13:04] LABS: ALKALINE PHOSPHATASE 70 U/L (45-117); TOTAL BILIRUBIN ADULT 0.3 MG/DL (0.2-1.0)
[2017-03-29 13:58] LABS: WESTERGREN SEDIMENTATION RATE 44 mm/hr (0-20)
--- NOTE | 2017-03-29 15:45 | HHI.PR ---
Addendum to Inpatient Note Addendum Reason: Additional Documentation Additional Information Tx options dw pt : Sh is agreavble to be started on Biaxine 500 mg po bid + zyvox 600 mg po bid + Amikacin 15 mg/kg daily IV This Rx will be cont atleast untill sensitivities are back; abx will be adjusted P sensitivities and side effects - PICC line - audiogram - CBC, CMP, Mg levels - amik trough weekly All scripts written Pt was instructed to report immediately hearing issues, tinnitus and dizziness Christianne Calles MD Mar 29, 2017 15:45
--- NOTE | 2017-03-30 13:13 | HHI.FF ---
Infusion Therapy Location of Infusion Therapy: Home Health Care IV Infusion Order Patient Information Patient Weight Diagnosis: Diagnosis M abscessus breast infection Coded Allergies: penicillin G (Verified Allergy, Mild, Swelling, 03/30/17) Administer Medication Amikacin 15 mg/kg IV q 24 hours Start Treatment: Mar 31, 2017 Stop Treatment: Apr 28, 2017 Additional Information Venous access: PICC Line Additional Instructions [x] Peripheral flush and dressing changes per protocol [x] Implanted port and central guyline operator: * Implanted port: 10 ml Normal Saline followed by 5 ml Heparin 100 units/ml Heparin flush after each use and monthly to maintain. [] May leave port accessed during therapy. [] May leave peripheral site accessed for duration of therapy. [x] If patient has SOB or respiratory distress, check oxygen saturation. If less than 90% or clinical signs of respiratory distress, administer oxygen at 2 L/min. via nasal cannula and notify physician. [x] Anaphylaxis/Reaction orders: * Stop infusion. * Keep IV line open with saline flush. * Notify physician. * Monitor vital signs every 15 minutes until symptoms resolve. * Check Oxygen saturation; Oxygen at 2 L/min. via nasal cannula if less than 90% or clinical signs of respiratory distress. * Administer diphenhydramine (Benadryl) 25 mg IV STAT, (unless patient has received as pre-med). May repeat once, if necessary. * Solu-Cortef 250 mg IVP over 30-60 seconds, use 100 mg vials for each dissolution. * Epinephrine (1mg/1 ml) 0.3 mg subcutaneously or IVP now with any signs of respiratory distress. * Check with physician for new additional pre-med orders if patient is re- challenged or re-treated. [x] May remove PICC line when treatment complete, after confirming with Physician. [x] If the patient is admitted to the hospital, the ED, or transferred via [facility] , complete transfer form including medication reconciliation order sheet. Laboratory Tests Weekly Labs: Amikacin Level (trough), CBC w/diff, CMP, Serum Magnesium Levels Christianne Calles MD Mar 30, 2017 13:13
--- NOTE | 2017-03-30 22:18 | EKG ---
Date Performed: 03/29/2017 Time Performed: 12:02:47 PTAGE: 51 years EKG: Sinus rhythm NORMAL ECG PREVIOUS TRACING : 12/13/2016 08.13 Since the prior tracing, there has been no significant patten DOCTOR: Louis Walsh Interpretating Date/Time 03/30/2017 22:16:25
== END 2017-03-29 12:30 | disposition home or self-care (01) ==
LOC: HROP 11:38 → HRIP 11:39 → HROP 12:30
PROVIDERS: ATTEND Radiology Body Imaging
DX: N61.1 Abscess of the breast and nipple (principal); A31.8 Other mycobacterial infections; C50.411 Malignant neoplasm of upper-outer quadrant of right female breast; Z17.1 Estrogen receptor negative status [ER-]; R70.0 Elevated erythrocyte sedimentation rate; G62.9 Polyneuropathy, unspecified; M17.0 Bilateral primary osteoarthritis of knee; Z01.810 Encounter for preprocedural cardiovascular examination
CPT/HCPCS: 80053; 85025; 85652; 93005; 99213; G0463

== ENCOUNTER 2017-03-30 09:16 | Day surgery (SDC) | payer OTHER ==
[2017-03-30 10:16] VITALS: BP 105/72; PULSE 78; RESP 20; TEMP 97.4; O2SAT 100
[2017-03-30 11:35] VITALS: BP 134/75; PULSE 85; RESP 20; TEMP 97.5; O2SAT 98
--- NOTE | 2017-03-30 12:12 | PD.RAD ---
Radiology Post PICC Prog Note Pre Procedure Diagnosis: (1) Breast infection in female Post Procedure Diagnosis: (1) Breast infection in female Procedure: Left PICC line placement Procedure Date: Mar 30, 2017 Supervising Radiologist Johan Rivera JR Proceduralist/Assist: Gemini De La Cruz RT(R)() Device Side: Left Spanish: 4 single lumen cm: 36 Catheter: Power PICC Plan of Activity Patient to Unit: ROPU Patient Condition: Good PICC line can be used immediately Jr. Miguel,Johan Mercer MD Mar 30, 2017 12:12
[2017-03-30] MEDS ORDERED: SODIUM CHLORIDE 0.9% FLUSH 10 ML FLUSH IVF PRN ×2 (12:15)
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
[2017-03-31] MEDS ORDERED: SODIUM CHLORIDE 0.9% FLUSH 10 ML FLUSH IVF SCH (09:00)
[2017-03-31] MEDS ORDERED: SOLU250I IV PUSH (10:16)
[2017-03-31] MEDS ORDERED: EPIN1INJ21 SQ (10:16)
[2017-03-31] MEDS ORDERED: AMIK4INJ2 IV (10:16)
[2017-03-31] MEDS ORDERED: EPIN1INJ21 IV PUSH (10:16)
== END 2017-03-30 11:50 | disposition home or self-care (01) ==
LOC: HROP 09:16 → HRIP 09:18 → HROP 11:50
PROVIDERS: ATTEND Internal Medicine Infectious Disease
DX: Z45.2 Encounter for adjustment and management of vascular access device (principal); T85.79XA Infection and inflammatory reaction due to other internal prosthetic devices, implants and grafts, initial encounter; C50.411 Malignant neoplasm of upper-outer quadrant of right female breast; Z79.2 Long term (current) use of antibiotics; Z90.13 Acquired absence of bilateral breasts and nipples; Y83.1 Surgical operation with implant of artificial internal device as the cause of abnormal reaction of the patient, or of later complication, without mention of misadventure at the time of the procedure
CPT/HCPCS: 36569; 76937; 77001; C1751; J1642

== ENCOUNTER 2017-03-30 12:40 | Observation (INO) | payer OTHER ==
[~2017-03-30] VITALS: Ht 170.2 cm; Wt 61.2 kg
[~2017-03-30 12:40] MED LIST changes: +DEXAMETHASONE SOD PHOS 4 MG/ML VIAL IV ONE; +GLYCOPYRROLATE 1 MG/5 ML SYRINGE IV PUSH ONE; +LACTATED RINGER'S 1000 ML INJ 1,000 ML IV ONE; +NEOSTIGMINE 5 MG/5 ML SYRINGE IV PUSH ONE; +PROPOFOL 200 MG/20 ML AMP IV ONE; +ROCURONIUM INJ 50 MG/5 ML SYRINGE IV PUSH ONE
[2017-03-30] MEDS ORDERED: SODIUM CHLORID 0.9% 500 ML IV PRN (14:15)
[2017-03-30] MEDS ORDERED: SODIUM CHLORIDE 0.9% FLUSH 10 ML FLUSH IV FLUSH PRN (14:15)
[2017-03-30] MEDS ORDERED: METOPROLOL TARTRATE 25 MG TAB PO PRN (14:15)
[2017-03-30] MEDS ORDERED: PICC PRN Heparin 100 units/ml Lock Flush IV FLUSH (14:15)
[2017-03-30] MEDS ORDERED: CHLORHEXIDINE GLUCONATE 2 % 1 PACK (2 CLOTHS) TOPICAL PRN (14:15)
[2017-03-30] MEDS ORDERED: LACTATED RINGER'S 1000 ML IV PRN (14:15)
[2017-03-30] MEDS ORDERED: POVIDONE IODINE 5% (ANTISEPSIS KIT) 4 APPLICATIONS EACH NARE PRN (14:15)
[2017-03-30] MEDS ORDERED: PICC PRN After Blood Draw NS Lock Flush IV FLUSH (14:15)
[2017-03-30] MEDS ORDERED: SODIUM CHLOR 0.9% 250 ML INJ 250 ML ONE (14:26)
[2017-03-30] MEDS ORDERED: VANCOMYCIN HCL 1000 MG VIAL ONE (14:26)
[2017-03-30] MEDS ORDERED: ceFAZolin 2 GM PREMIX 50 ML IV SCH (14:30)
[2017-03-30] MEDS ORDERED: VANCOMYCIN 1 GM/200 ML PREMIX ON-CALL IV SCH (14:30)
[2017-03-30] MEDS ORDERED: ONDANSETRON HCL 4 MG/2 ML VIAL IV PUSH ONE (15:15)
[2017-03-30] MEDS ORDERED: APREPITANT 40 MG CAP ONE (15:54)
[2017-03-30] MEDS ORDERED: FAMOTIDINE 20 MG/2 ML VIAL ONE (15:54)
[2017-03-30] MEDS ORDERED: BUPIVACAINE/EPINEPHRINE 0.25% 50 ML VIAL ONE (16:38)
[2017-03-30] MEDS ORDERED: GENTAMICIN SULFATE 80 MG/2 ML VIAL ONE (16:38)
[2017-03-30] MEDS ORDERED: PROPOFOL 500 MG/50 ML INJ 50 ML ONE (17:26)
[2017-03-30] MEDS ORDERED: DO NOT ADM ANY ANTICOAGULANT DRUGS PRN (18:00)
[2017-03-30] MEDS ORDERED: *MEPERIDINE 25 MG INJ VIAL PERIprocedural Use ONLY ONE (18:11)
[2017-03-30] MEDS ORDERED: KETOROLAC TROMETHAMINE 60 MG/2 ML (IM) VIAL IM ONE ×2 (18:14→20:00)
[2017-03-30] MEDS ORDERED: ACETAMINOPHEN 1000 MG/100 ML 100 ML IV ONE (18:15)
[2017-03-30] MEDS ORDERED: MIDAZOLAM HCL 2 MG/2 ML VIAL ONE (18:17)
[2017-03-30] MEDS ORDERED: *morphine SULFATE 10 MG/ML PERIprocedure ONLY ONE (18:30)
[2017-03-30] MEDS: DEXTROSE 5%-LACTATED RING INJ 1,000 ML IV SCH ×3 (19:00→22:07)
[2017-03-30] MEDS ORDERED: ONDANSETRON ODT 4 MG TAB PO PRN (20:00)
[2017-03-30] MEDS: ACETAMINOPHEN/HYDROcodone 325 MG/10 MG TAB PO PRN (22:30)
[2017-03-30] MEDS ORDERED: MUPIROCIN 2% OINT 22 GM TUBE TOPICAL ONE (23:30)
[2017-03-30] MEDS: ACETAMINOPHEN 1000 MG/100 ML 100 ML IV SCH (23:53)
[2017-03-31] VITALS: BP 102/52; PULSE 57; RESP 15; TEMP 96.1; O2SAT 98
[2017-03-31] MEDS: MORPHINE SULFATE 2 MG/ML INJ IV PUSH PRN ×2 (01:03→03:26)
[2017-03-31] MEDS: DEXTROSE 5%-LACTATED RING INJ 1,000 ML IV SCH (01:05)
[2017-03-31 04:00] VITALS: BP 100/53; PULSE 57; RESP 15; TEMP 95.5; O2SAT 100
[2017-03-31] MEDS: ACETAMINOPHEN/HYDROcodone 325 MG/10 MG TAB PO PRN ×2 (05:32→11:32)
[2017-03-31] MEDS: ACETAMINOPHEN 1000 MG/100 ML 100 ML IV SCH ×2 (05:33→11:31)
[2017-03-31 07:38] VITALS: BP 108/57; PULSE 59; RESP 18; TEMP 95.5; O2SAT 100
--- NOTE | 2017-03-31 08:16 | MP ---
cc: DARION ASHLEY M.D. 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 OPERATION PERFORMED Removal of breast implant, capsulectomy and complex repair 10 cm in length, closed suction drainage. SURGEON Dr. Darion Ashley EFFICIENCY MINER BLASTING Lowell Coleman ESTIMATED BLOOD LOSS 100 cc FLUID REPLACEMENT 1500 cc of crystalloid COMPLICATIONS None DRAINS One 7-mm drain CULTURES AND PATHOLOGY Granulation tissue and capsule DESCRIPTION OF OPERATION The patient was seen in the preop area. She was given IV vancomycin and Ancef. She was brought to the operating room, placed on the operating room table. She was prewarmed with a bear hugger and pneumatic compression garments on her lower extremities. She was placed under general endotracheal anesthesia. The right breast and left breast were prepped and draped in sterile fashion. A time-out was done. All concurred. An elliptical excision was marked over the scar on the right anterior breast reconstruction. It was made part way through the skin incision with a 15 blade. It was completely made through the skin with electrocautery. The skin and fatty tissue that was residual was dissected up off of the latissimus dorsi pectoralis major muscle. The muscle was split in the direction of its fibers. The pocket was entered and the implant was removed. There was copious amounts of gooey granulation tissue which was essentially the infection from the Mycobacterium. This was dissected as completely as possible from the muscle of the chest wall and was moved essentially completely. It was sent to pathology for culture acid-fast for fungus and regular culture and regular H&E stains. Meticulous hemostasis was obtained with electrocautery. The pocket was copiously irrigated cut and studied for bleeding and cautery was done. A stab wound was carried out in the axilla and a 7-mm flat Dawson-Hughes drain was inserted, sutured in place with 2-0 Vicryl. The pectoralis latissimus muscle was then sutured with a running 3-0 PDS. The fascia was closed with a running 3-0 PDS and the wound was closed with interrupted 3-0 PDS sutures. The complex repair was 10 cm in length. The drain was charged. The wounds were cleaned. Dermabond was placed on the wound, allowed to dry. Xeroform gauze was applied, 4x4s and ABD's were applied. She was placed in a bra. She was awakened, transferred to a stretcher, extubated and sent to the recovery room in satisfactory condition. MD MAN Posadas/KOBY /5:55 PM /8:03 AM
[2017-03-31] MEDS ORDERED: PICC Daily Heparin 100 unit/mL Lock Flush IV FLUSH SCH (09:00)
[2017-03-31] MEDS ORDERED: SODIUM CHLORIDE 0.9% FLUSH 10 ML FLUSH IV FLUSH SCH (09:00)
--- NOTE | 2017-03-31 09:37 | PD.ID.CON ---
History of Present Illness Service ID Consult Requested By Dr Ashley Reason for Consult M abscessus R beast infection Primary Care Physician No Primary Care Physician Diagnoses: History of Present Illness 51 yo female with triple negative breast ca of R breast sp b/l mastectomy with reconstruction diagnosed with M abscessus infection of the R breast Sp removal of infected prosthesis today by Dr Ashley - op report noted ; copious amounts of abnormal granulation tissue Pt has her PICC placed No new c/o since yday Review of Systems Ears, nose, mouth, throat: COMPLAINS OF: Hearing loss Except as stated in HPI: all other systems reviewed are Neg Past Family Social History Allergies: Coded Allergies: penicillin G (Verified Allergy, Mild, Swelling, 03/30/17) Past Medical History breast ca Past Surgical History b/l mastectomy with reconstruction Nov 2016 Active Ordered Medications Medications where reviewed in EMR Antibiotics Include: none Family History NC Social History No Tobacco. No ETOH. No Illicit Drugs. Physical Exam Vital Signs Vital Signs Date Time Temp Pulse Resp B/P (MAP) Pulse Ox O2 Delivery O2 Flow Rate FiO2 03/31/17 07:38 95.5 59 18 108/57 (74) 100 03/31/17 04:00 95.5 57 15 100/53 (69) 100 03/31/17 00:00 96.1 57 15 102/52 (69) 98 03/30/17 20:00 97.8 76 16 110/61 (77) 97 Room Air 03/30/17 19:30 75 16 115/62 (79) 96 Room Air 03/30/17 19:11 15 03/30/17 19:11 15 03/30/17 19:00 97.6 72 16 121/65 (83) 95 Room Air 03/30/17 18:45 70 15 133/60 (84) 99 Nasal Cannula 2 03/30/17 18:35 15 03/30/17 18:35 15 03/30/17 18:30 75 15 141/69 (93) 98 Nasal Cannula 2 03/30/17 18:15 74 15 145/70 (95) 100 Nasal Cannula 3 03/30/17 18:05 97.4 72 16 133/79 (97) 100 Simple Mask 7 03/30/17 13:51 97.8 83 16 111/74 (86) 100 Physical Exam CONSTITUTIONAL/GENERAL: This is an adequately nourished patient, in no apparent distress. TUBES/LINES/DRAINS: SKIN: No jaundice, rashes, or lesions. Skin temperature appropriate. Not diaphoretic. HEAD: Atraumatic. Normocephalic. EYES: Pupils equal and round and reactive. Extraocular motions intact. No scleral icterus. No injection or drainage. Fundi not examined. ENT: Hearing grossly normal. Nose without bleeding or purulent drainage. Oral mucosae moist CARDIOVASCULAR: Regular rate and rhythm without murmurs, gallops, or rubs. No JVD. Peripheral pulses symmetric. RESPIRATORY/CHEST: Symmetric, unlabored respirations. Clear to auscultation. Breath sounds equal bilaterally. No wheezes, rales, or rhonchi. GASTROINTESTINAL: Abdomen soft, non-tender, nondistended. No hepato-splenomegaly , or palpable masses. MUSCULOSKELETAL: Extremities without clubbing, cyanosis, or edema. NEUROLOGICAL: Awake and alert. Motor and sensory grossly within normal limits. Follows commands. Cognitively sharp. Moves all extremities. PSYCHIATRIC: No obvious anxiety/depression. no apparent hallucinations or other psychotic thought process. Laboratory Date/Time Source Procedure Growth Status 03/30/17 18:19 Fluid Other Fungal Smear - Final NO FUNGAL ELEMENTS SEEN. Resulted 218 18:19 Fluid Other Fungal Culture Pending Resulted 218 18:19 Wound Breast Fungal Smear - Final NO FUNGAL ELEMENTS SEEN. Resulted 18 18:19 Wound Breast Fungal Culture Pending Resulted Assessment and Plan Assessment and Plan M abscessus R breast infection aw foreign be sp removal of implant of R breast Breast ca - completed emo; undergoing XRT Pt will be discharged with home health care to be on Amikacin 15 mg/kg daily and oral Biaxine 500 bid and Zyvox 600 bid Meds will be adjusted based on sensitivity report and tolerability Anticipate 2-3 weeks of IV tx initilally follwoed hopefully with po afterwards Pt was instructed report side effects including vertigo, tinnitus She is planning to get her baseline audiogramme right after dc Labs weekly: CBC, CMP, Mg Discussed Condition With case mngr Dr Ashley over phone Dr Casey pt, her father @ b/s all questions answered to full extent Christianne Calles MD Mar 31, 2017 09:37
[2017-03-31] MEDS ORDERED: EPIN1INJ21 SQ (10:16)
[2017-03-31] MEDS ORDERED: SOLU250I IV PUSH (10:16)
[2017-03-31] MEDS ORDERED: AMIK4INJ2 IV (10:16)
[2017-03-31] MEDS ORDERED: EPIN1INJ21 IV PUSH (10:16)
[2017-03-31 12:00] VITALS: BP 116/60; PULSE 61; RESP 18; TEMP 96; O2SAT 95
== END 2017-03-31 14:26 | disposition home or self-care (01) ==
LOC: HSDC 12:40 → HSDI 18:27 → N06B 20:09
PROVIDERS: ADMIT Plastic Surgery; ATTEND Plastic Surgery
DX: T85.79XA Infection and inflammatory reaction due to other internal prosthetic devices, implants and grafts, initial encounter (principal); N61.1 Abscess of the breast and nipple; A31.8 Other mycobacterial infections; Y83.1 Surgical operation with implant of artificial internal device as the cause of abnormal reaction of the patient, or of later complication, without mention of misadventure at the time of the procedure; Z85.3 Personal history of malignant neoplasm of breast; Z90.13 Acquired absence of bilateral breasts and nipples; Z87.891 Personal history of nicotine dependence
CPT/HCPCS: 00402; 19371; 87015; 87070; 87102; 87116; 87176; 87205; 87206; 88307; 96361; 96365; 96366; G0378; J0131; J0690; J1580; J1642; J2175; J2250; J2270; J2405; J3010; J3370; J7050; J7120; J7121; J1100; J1885; J2710; J8501

== ENCOUNTER → 2017-04-04 | Outpatient (CLI) | payer OTHER ==
[~2017-04-04] MED LIST changes: +AMIK4INJ2 IV; +CLAR500T PO; -DEXAMETHASONE SOD PHOS 4 MG/ML VIAL IV ONE; +EPIN1INJ21 IV PUSH; +EPIN1INJ21 SQ; -GLYCOPYRROLATE 1 MG/5 ML SYRINGE IV PUSH ONE; -LACTATED RINGER'S 1000 ML INJ 1,000 ML IV ONE; -NEOSTIGMINE 5 MG/5 ML SYRINGE IV PUSH ONE; -PROPOFOL 200 MG/20 ML AMP IV ONE; -ROCURONIUM INJ 50 MG/5 ML SYRINGE IV PUSH ONE; +SOLU250I IV PUSH; +ZYVO600T PO
[2017-04-04 08:59] LABS: AUTOMATED NEUTROPHIL # 3.9 TH/MM3 (1.8-7.7); BASOPHIL % 0.8 % (0.0-2.0); EOSINOPHIL # 0.2 TH/MM3 (0-0.4); EOSINOPHIL % 4.4 % (0.0-4.0); HEMATOCRIT 31.1 % (35.0-46.0); HEMOGLOBIN 10.5 GM/DL (11.6-15.3); LYMPH % 16.2 % (9.0-44.0); LYMPHOCYTE # 0.9 TH/MM3 (1.0-4.8); MEAN CELL VOLUME 87.4 FL (80.0-100.0); MEAN CORPUSCULAR HEMOGLOBIN 29.5 PG (27.0-34.0); MEAN CORPUSCULAR HGB CONC 33.7 % (32.0-36.0); MEAN PLATELET VOLUME 7.1 FL (7.0-11.0); MONO % 5.7 % (0.0-8.0); MONOCYTE # 0.3 TH/MM3 (0-0.9); NEUT % 72.9 % (16.0-70.0); PLATELET COUNT 387 TH/MM3 (150-450); RED BLOOD COUNT 3.56 MIL/MM3 (4.00-5.30); RED CELL DISTRIBUTION WIDTH 13.8 % (11.6-17.2); WHITE BLOOD COUNT 5.4 TH/MM3 (4.0-11.0)
[2017-04-04 09:29] LABS: ALBUMIN 3.3 GM/DL (3.4-5.0); AST (GOT) 20 U/L (15-37); BICARBONATE 27.8 MEQ/L (21.0-32.0); BLOOD UREA NITROGEN 14 MG/DL (7-18); CALCIUM 8.7 MG/DL (8.5-10.1); CHLORIDE 107 MEQ/L (98-107); CREATININE 0.57 MG/DL (0.50-1.00); GLOMERULAR FILTRATION RATE 113 ML/MIN (>89); GLUCOSE,FASTING 98 MG/DL (74-99); SODIUM (NA) 140 MEQ/L (136-145)
[2017-04-04 09:31] LABS: ALT (GPT) 26 U/L (10-53)
[2017-04-04 09:33] LABS: ALKALINE PHOSPHATASE 60 U/L (45-117); TOTAL BILIRUBIN ADULT 0.3 MG/DL (0.2-1.0); TOTAL PROTEIN 6.9 GM/DL (6.4-8.2)
== END ==
LOC: CLAB 08:06
PROVIDERS: ATTEND Internal Medicine Hematology & Oncology
DX: C50.411 Malignant neoplasm of upper-outer quadrant of right female breast (principal)
CPT/HCPCS: 36415; 80053; 83735; 85025

== ENCOUNTER → 2017-04-05 | Outpatient (CLI) | payer OTHER ==
[~2017-04-05] MED LIST changes: +[UNRECOGNIZED DRUG - CODE] IV; +[UNRECOGNIZED DRUG - CODE] IV
== END ==
LOC: HLAB 17:06
PROVIDERS: ATTEND Internal Medicine Critical Care Medicine
DX: Z79.899 Other long term (current) drug therapy (principal); Z51.81 Encounter for therapeutic drug level monitoring
CPT/HCPCS: 80150

== ENCOUNTER 2017-04-11 12:55 | Observation (INO) | payer OTHER ==
[~2017-04-11 12:55] MED LIST changes: -CLAR500T PO; -ZYVO600T PO; -[UNRECOGNIZED DRUG - CODE] IV; -[UNRECOGNIZED DRUG - CODE] IV
[2017-04-11 13:01] VITALS: BP 100/70; PULSE 88; RESP 14; TEMP 97.6; O2SAT 100
[2017-04-11] MEDS ORDERED: SODIUM CHLOR 0.9% 1000 ML INJ 1,000 ML IV ONE ×2 (13:15→13:30)
[2017-04-11] MEDS ORDERED: ONDANSETRON HCL 4 MG/2 ML VIAL IV PUSH ONE (13:30)
--- NOTE | 2017-04-11 14:17 | RADRPT ---
EXAM DATE/TIME: 04/11/2017 13:41 [facility] COMPARISON: CHEST SINGLE AP, December 13, 2016, 20:08. INDICATIONS : Shortness of breath and chest pain post removal of implant 1 week ago. MEDICAL HISTORY : Carcinoma, breast. SURGICAL HISTORY : Bilateral mastectomy with reconstruction. Removal of right implant. ENCOUNTER: Initial ACUITY: 1 week PAIN SCORE: 4/10 LOCATION: Bilateral middle chest. FINDINGS: A single view of the chest demonstrates the lungs to be symmetrically aerated without evidence of mas s, infiltrate or effusion. The cardiomediastinal contours are unremarkable. Osseous structures are intact. PICC line in good position. CONCLUSION: PICC line in good position. No pneumothorax. Naga Rodriguez MD FACR on April 11, 2017 at 14:14 Board Certified Radiologist. This report was verified electronically.
[2017-04-11] MEDS ORDERED: ZYVO600T PO (14:29)
[2017-04-11] MEDS ORDERED: CLAR500T PO ×2 (14:29)
--- NOTE | 2017-04-11 14:29 | PD ---
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 She is currently under antibiotic treatment with amikacin. She endorses an episode of vertigo, chest pain, palpitations, shortness of breath, nausea just before arrival which caused her to seek treatment today. She endorses muffled hearing, low appetite, nausea over the last few days. She has a drain in the right breast which she states has put out ~25 ml serosanguineous fluid in the last 24 hours. She denies fevers, chills, vomiting. She is followed by Dr. Casey and Dr. Calles. The radiation treatments are on hold while the postop wound infection is addressed. PFSH Past Medical History Arthritis: Yes Asthma: No Autoimmune Disease: No Anxiety: No Depression: No Heart Rhythm Problems: No Cancer: Yes (BREAST CA) Cardiovascular Problems: No High Cholesterol: No Chemotherapy: Yes Chest Pain: No Congestive Heart Failure: No COPD: No Cerebrovascular Accident: No Diabetes: No Endocrine: No GERD: No Genitourinary: No Hepatitis: No Hiatal Hernia: No Immune Disorder: No Kidney Stones: No Musculoskeletal: Yes Neurologic: No Psychiatric: No Reproductive: No Respiratory: No Migraines: No Radiation Therapy: Yes Renal Failure: No Seizures: No Sickle Cell Disease: No Sleep Apnea: No Thyroid Disease: No Ulcer: No ?: Not Menopausal: Yes Past Surgical History Abdominal Surgery: Yes AICD: No Arteriovenous Shunt: No Body Medical Devices: LEFT BREAST IMPLANT Cardiac Surgery: No Ear Surgery: No Endocrine Surgery: No Eye Surgery: No Genitourinary Surgery: No Gynecologic Surgery: Yes (DOUBLE MASECTOMY WITH DORSAL FLAP) Insulin Pump: No Joint Replacement: No Oral Surgery: No Pacemaker: No Thoracic Surgery: No Social History Alcohol Use: No Tobacco Use: No Substance Use: No Allergies-Medications (Allergen,Severity, Reaction): Coded Allergies: penicillin G (Verified Allergy, Mild, Swelling, 03/30/17) Reported Meds & Prescriptions Reported Meds & Active Scripts Active Epinephrine Inj 1 Mg/Ml (1 Ml) Inj 0.3 Mg SQ ONCE PRN Give with any signs of respiratory distress. Solu-Cortef Inj (Hydrocortisone Sodium Succinate) 250 Mg/2 Ml Inj 250 Mg IV PUSH ONCE PRN Give over 30-60 seconds. Amikacin Inj (Amikacin Sulfate) 1,000 Mg/4 Ml Inj 900 Mg IV DAILY 30 Days Reported Clarithromycin 500 Mg Tab 500 Mg PO BID Zyvox (Linezolid) 600 Mg Tab 600 Mg PO Q12H Hydrocodone-Acetaminophen 7.5-300 Mg Tab 1 Tab PO Q4H PRN Review of Systems Except as stated in HPI: all other systems reviewed are Neg Physical Exam Narrative GENERAL: Well-nourished, well-developed pleasant white female in NAD. SKIN: Focused skin assessment warm/dry. Drain in the right breast without signs of infection. Reconstructed left breast without signs of infection. HEAD: Normocephalic. EYES: No scleral icterus. No injection or drainage. Horizontal nystagmus. PERRLA.EOMI. NECK: Supple, trachea midline. No JVD or lymphadenopathy. CARDIOVASCULAR: Regular rate and rhythm without murmurs, gallops, or rubs. RESPIRATORY: Breath sounds clear and equal bilaterally. No accessory muscle use. GASTROINTESTINAL: Abdomen soft, non-tender, nondistended. Active bowel sounds. MUSCULOSKELETAL: No cyanosis, or edema. BACK: Nontender without obvious deformity. No CVA tenderness. Data Data Last Documented VS Vital Signs Date Time Temp Pulse Resp B/P (MAP) Pulse Ox O2 Delivery O2 Flow Rate FiO2 04/11/17 13:01 97.6 88 14 100/70 (80) 100 Orders Orders Complete Blood Count With Diff (04/11/17 13:04) Comprehensive Metabolic Panel (04/11/17 13:04) Lipase (04/11/17 13:04) Urinalysis - C+S If Indicated (04/11/17 13:04) Sepsis Workup Initiated (04/11/17 ) Lactic Acid Sepsis Protocol (04/11/17 13:15) Blood Culture (04/11/17 13:15) Chest, Single Ap (04/11/17 13:15) Blood Glucose (04/11/17 13:15) Ecg Monitoring (04/11/17 13:15) Iv Access Insert/Monitor (04/11/17 13:15) Oximetry (04/11/17 13:15) Sodium Chlor 0.9% 1000 Ml Inj (Ns 1000 M (04/11/17 13:15) Ct Brain W/O Iv Contrast(Rout) (04/11/17 ) Electrocardiogram (04/11/17 ) Troponin I (04/11/17 13:29) Sodium Chlor 0.9% 1000 Ml Inj (Ns 1000 M (04/11/17 13:30) Ondansetron Inj (Zofran Inj) (04/11/17 13:30) Amikacin Trough (04/11/17 14:29) Consult Infectious Disease (04/11/17 ) Diet Regular Basic (04/11/17 Lunch) (Hub Use Only)Inp Phy Cons/Ref (04/11/17 14:59) Type And Screen (04/11/17 15:04) Admit Order (Ed Use Only) (04/11/17 15:45) Labs Laboratory Tests Test 04/11/17 12:51 04/11/17 14:00 04/11/17 14:12 Urine Color YELLOW Urine Turbidity HAZY Urine pH 5.5 Urine Specific [place] 1.020 Urine Protein NEG mg/dL Urine Glucose (UA) NEG mg/dL Urine Ketones 10 mg/dL Urine Occult Blood SMALL Urine Nitrite NEG Urine Bilirubin NEG Urine Urobilinogen LESS THAN 2.0 MG/DL Urine Leukocyte Esterase SMALL Urine RBC 2 /hpf Urine WBC 2 /hpf Urine Squamous Epithelial Cells 2 /hpf Urine Transitional Epithelial Cells <1 /hpf Urine Hyaline Casts 3 /lpf Urine Mucus FEW /lpf Microscopic Urinalysis Comment CULT NOT INDICATED White Blood Count 8.0 TH/MM3 Red Blood Count 2.52 MIL/MM3 Hemoglobin 7.4 GM/DL Hematocrit 21.6 % Mean Corpuscular Volume 85.9 FL Mean Corpuscular Hemoglobin 29.2 PG Mean Corpuscular Hemoglobin Concent 34.0 % Red Cell Distribution Width 13.9 % Platelet Count 312 TH/MM3 Mean Platelet Volume 6.5 FL Neutrophils (%) (Auto) 78.4 % Lymphocytes (%) (Auto) 14.7 % Monocytes (%) (Auto) 4.6 % Eosinophils (%) (Auto) 1.6 % Basophils (%) (Auto) 0.7 % Neutrophils # (Auto) 6.3 TH/MM3 Lymphocytes # (Auto) 1.2 TH/MM3 Monocytes # (Auto) 0.4 TH/MM3 Eosinophils # (Auto) 0.1 TH/MM3 Basophils # (Auto) 0.1 TH/MM3 CBC Comment DIFF FINAL Differential Comment Blood Urea Nitrogen 14 MG/DL Creatinine 0.62 MG/DL Random Glucose 94 MG/DL Total Protein 7.5 GM/DL Albumin 3.6 GM/DL Calcium Level 8.9 MG/DL Alkaline Phosphatase 60 U/L Aspartate Amino Transf (AST/SGOT) 13 U/L Alanine Aminotransferase (ALT/SGPT) 15 U/L Total Bilirubin 0.4 MG/DL Sodium Level 137 MEQ/L Potassium Level 3.7 MEQ/L Chloride Level 105 MEQ/L Carbon Dioxide Level 24.9 MEQ/L Anion Gap 7 MEQ/L Estimat Glomerular Filtration Rate 102 ML/MIN Lactic Acid Level 1.0 mmol/L Troponin I LESS THAN 0.02 NG/ML Lipase 93 U/L [facility] Medical Decision Making Medical Screen Exam Complete: Yes Emergency Medical Condition: Yes Differential Diagnosis medication side effect versus amikacin toxicity versus metabolic derangement versus dehydration versus other Narrative Course 52-year-old female with PMH of breast CA status post bilateral mastectomy and reconstruction with 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 She is currently under antibiotic treatment with amikacin. She endorses an episode of vertigo, chest pain, palpitations, shortness of breath, nausea just before arrival which caused her to seek treatment today. She endorses muffled hearing, low appetite, nausea over the last few days. Patient afebrile on presentation. Physical exam reveals a nontoxic-appearing white female in no acute distress. The right breast incision is well healing without signs of infection. There is a drain in place at about 25 mL serosanguineous fluid in the collecting grenade. She has some nystagmus on evaluation but no focal neuro deficits. Exam is otherwise unremarkable. IV was established. Blood cultures were drawn. Amikacin level was drawn. Patient was administered 1 L normal saline, 5 mg of Reglan. EKG rate 75, sinus rhythm. CA interval 161, QRS 86, QTC 449. Normal axis. No acute ST changes. Reviewed by Dr. Nolan. CXR: PICC line in good position. No pneumothorax. CT brain: No acute intracranial abnormality identified per radiology read. 04/11/17 14:12 Total Protein 7.5, Albumin 3.6, Calcium Level 8.9, Alkaline Phosphatase 60, Aspartate Amino Transf (AST/SGOT) 13 L, Alanine Aminotransferase (ALT/SGPT) 15, Total Bilirubin 0.4 Dr. Calles came to the bedside and discussed the case with the patient. She feels that the anemia is likely secondary to the current antibiotics. Patient will need changes in her antibiotics as her symptoms are likely secondary to amikacin toxicity. We'll admit for observation overnight. Patient is agreeable to the plan. I spoke with the residents who agreed to accept the patient to the medicine service under Dr. Enriquez. Please see medicine, oncology, infectious disease notes for disposition. Caitlin Briceño Apr 11, 2017 14:29
[2017-04-11 14:31] LABS: AUTOMATED NEUTROPHIL # 6.3 TH/MM3 (1.8-7.7); BASOPHIL # 0.1 TH/MM3 (0-0.2); BASOPHIL % 0.7 % (0.0-2.0); EOSINOPHIL # 0.1 TH/MM3 (0-0.4); EOSINOPHIL % 1.6 % (0.0-4.0); HEMATOCRIT 21.6 % (35.0-46.0); HEMOGLOBIN 7.4 GM/DL (11.6-15.3); LYMPH % 14.7 % (9.0-44.0); LYMPHOCYTE # 1.2 TH/MM3 (1.0-4.8); MEAN CELL VOLUME 85.9 FL (80.0-100.0); MEAN CORPUSCULAR HEMOGLOBIN 29.2 PG (27.0-34.0); MEAN PLATELET VOLUME 6.5 FL (7.0-11.0); MONO % 4.6 % (0.0-8.0); MONOCYTE # 0.4 TH/MM3 (0-0.9); NEUT % 78.4 % (16.0-70.0); PLATELET COUNT 312 TH/MM3 (150-450); RED BLOOD COUNT 2.52 MIL/MM3 (4.00-5.30); RED CELL DISTRIBUTION WIDTH 13.9 % (11.6-17.2)
[2017-04-11 14:36] LABS: BILIRUBIN, URINE NEG (NEG); BLOOD, URINE SMALL (NEG); GLUCOSE,URINE NEG (NEG); HYALINE CAST, URINE 3 /lpf (RARE); KETONE, URINE 10 mg/dL (NEG); MUCUS URINE FEW /lpf (OCC); NITRITE,URINE NEG (NEG); PH, URINE 5.5 (5.0-8.5); SQUAMOUS EPITHELIAL CELL URINE 2 /hpf (0-5); TRANSITIONAL EPI CELLS, URINE <1 /hpf; URINE COLOR YELLOW (YELLW/STRAW); URINE LEUKOCYTE ESTERASE SMALL (NEG)
--- NOTE | 2017-04-11 14:37 | RADRPT ---
EXAM DATE/TIME: 04/11/2017 13:48 [facility] COMPARISON: No previous studies available for comparison. INDICATIONS : Dizziness, nausea, loss of appetite. RADIATION DOSE: 56.35 CTDIvol (mGy) MEDICAL HISTORY : Right breast cancer SURGICAL HISTORY : Mastectomy, right. ENCOUNTER: Initial ACUITY: 2 days PAIN SCALE: 0/10 LOCATION: cranial TECHNIQUE: Multiple contiguous axial images were obtained of the head. Using automated exposure control and adj ustment of the mA and/or kV according to patient size, radiation dose was kept as low as reasonably a chievable to obtain optimal diagnostic quality images. DICOM format image data is available electro nically for review and comparison. FINDINGS: CEREBRUM: The ventricles are normal for age. No evidence of midline shift, mass lesion, hemorrhage or acute in farction. No extra-axial fluid collections are seen. POSTERIOR FOSSA: The cerebellum and brainstem are intact. The 4th ventricle is midline. The cerebellopontine angle i s unremarkable. EXTRACRANIAL: Visualized sinuses are clear. SKULL: The calvaria is intact. No evidence of skull fracture. CONCLUSION: No acute intracranial abnormality is identified. Dariel Sheets MD on April 11, 2017 at 14:34 Board Certified Radiologist. This report was verified electronically.
[2017-04-11 14:48] LABS: ALBUMIN 3.6 GM/DL (3.4-5.0); ALT (GPT) 15 U/L (10-53); AST (GOT) 13 U/L (15-37); BICARBONATE 24.9 MEQ/L (21.0-32.0); BLOOD UREA NITROGEN 14 MG/DL (7-18); CALCIUM 8.9 MG/DL (8.5-10.1); CHLORIDE 105 MEQ/L (98-107); CREATININE 0.62 MG/DL (0.50-1.00); GLOMERULAR FILTRATION RATE 102 ML/MIN (>89); GLUCOSE,RANDOM 94 MG/DL (74-106); SODIUM (NA) 137 MEQ/L (136-145)
[2017-04-11 14:51] LABS: ALKALINE PHOSPHATASE 60 U/L (45-117); TOTAL BILIRUBIN ADULT 0.4 MG/DL (0.2-1.0); TOTAL PROTEIN 7.5 GM/DL (6.4-8.2)
[2017-04-11] MEDS ORDERED: METOCLOPRAMIDE HCL 10 MG/2 ML VIAL IV PUSH ONE (16:00)
--- NOTE | 2017-04-11 16:33 | HHI.HP ---
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 She presents to the ED today after several days of nausea, feeling "lousy", and a dry mouth. When she stood up at work this morning, the room started spinning x1; she did not fall, has had no emesis, no abdominal pain, but did experience a little CP upon arrival to the ED that she attributes to an anxiety attack that has resolved. Associated sx includes a feeling of pressure in both ears x2 days. She had surgery on 's to have the right implant removed. Pt is followed by Dr Calles, ID, and Dr Casey, med oncology. Denies current CP, SOB, N/V/D, dizziness, and DVT pain. Review of Systems Constitutional: COMPLAINS OF: Fatigue, Dizziness, Night Sweats (2 weeks has been on amikacin), DENIES: Chills Eyes: DENIES: Diplopia, Vision loss Ears, nose, mouth, throat: COMPLAINS OF: Vertigo (with presssure), DENIES: Tinnitus, Throat pain, Hoarseness, Running Nose Respiratory: COMPLAINS OF: Cough, DENIES: Shortness of breath Cardiovascular: COMPLAINS OF: Chest pain, Palpitations, DENIES: Syncope Gastrointestinal: DENIES: Abdominal pain, Constipation, Diarrhea, Nausea, Vomiting Genitourinary: COMPLAINS OF: Dysuria, DENIES: Urinary frequency, Urinary incontinence Musculoskeletal: COMPLAINS OF: Muscle aches, Stiffness, Back pain Integumentary: DENIES: Pruritus, Rash Hematologic/lymphatic: DENIES: Lymphadenopathy Neurologic: DENIES: Headache, Paresthesias, Seizures Past Family Social History Past Medical History Anxiety Arthritis Previous chemotherapy HH Lat does 10/17/2016 R breast mycobacterium abscess 2018 R breast cancer 06/25/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 Solu-Cortef Inj (Hydrocortisone Sodium Succinate) 250 Mg/2 Ml Inj 250 Mg IV PUSH ONCE PRN Give over 30-60 seconds. Amikacin Inj (Amikacin Sulfate) 1,000 Mg/4 Ml Inj 900 Mg IV DAILY 30 Days Reported Clarithromycin 500 Mg Tab 500 Mg PO BID Zyvox (Linezolid) 600 Mg Tab 600 Mg PO Q12H Hydrocodone-Acetaminophen 7.5-300 Mg Tab 1 Tab PO Q4H PRN Allergies: Coded Allergies: penicillin G (Verified Allergy, Mild, Swelling, 03/30/17) Active Ordered Medications Current Medications Medications (Trade) Dose Ordered Sig/Latia Route Start Time Stop Time Status Last Admin (NS Flush) 2 ml UNSCH PRN IV FLUSH 04/11/17 17:00 (NS Flush) 2 ml BID IV FLUSH 04/11/17 21:00 (Tylenol) 650 mg Q4H PRN PO 04/11/17 17:00 (Zofran Inj) 4 mg Q6H PRN IVP 04/11/17 17:00 (Reglan Inj) 5 mg Q6H PRN IV PUSH 04/11/17 17:00 (Narcan Inj) 0.4 mg UNSCH PRN IV PUSH 04/11/17 17:00 (Steff-Colace) 1 tab BID PO 04/11/17 21:00 (Milk Of Magnesia Liq) 30 ml Q12H PRN PO 04/11/17 17:00 (Senokot) 17.2 mg Q12H PRN PO 04/11/17 17:00 (Dulcolax Supp) 10 mg DAILY PRN RECTAL 04/11/17 17:00 (Lactulose Liq) 30 ml DAILY PRN PO 04/11/17 17:00 Sodium Chloride 250 ml @ 15 mls/hr ONCE ONCE IV 04/11/17 17:00 04/12/17 09:39 (Benadryl) 25 mg Q4H PRN PO 04/11/17 17:00 04/12/17 16:59 Family History Mother - osteoarthritis Social History Ms. 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 Tobacco - quit 1yr ago; 1.5 PPD x 30 yrs. EtOH - 1 day per week. Physical Exam Vital Signs Vital Signs Date Time Temp Pulse Resp B/P (MAP) Pulse Ox O2 Delivery O2 Flow Rate FiO2 04/11/17 13:01 97.6 88 14 100/70 (80) 100 Physical Exam GENERAL: This is a well-nourished, well-developed patient in no apparent distress, but a little anxious. SKIN: No rashes, ecchymoses or lesions. Cool and dry. Tattoo over left breast. HEAD: Atraumatic. Normocephalic. EYES: Pupils equal round and reactive. Extraocular motions intact. No scleral icterus. No injection or drainage. ENT: Nose without bleeding or drainage. Throat without erythema, tonsillar hypertrophy or exudate. Uvula midline. Airway patent. NECK: Trachea midline. Supple, nontender, no meningeal signs. CARDIOVASCULAR: Regular rate and rhythm without murmurs, gallops, or rubs. RESPIRATORY: Clear to auscultation. Breath sounds equal bilaterally. No wheezes , rales, or rhonchi. CHEST: Right breast with transverse surgical scar c/d/i with stitches and SHIRA drain with <25cc on lateral right chest below the level of the breast draining yellowish/serosanguinous fluid with moderate sediment. Area around drain TTP with 2cm area superior and posterior to drain tube with mild induration and no fluctuance. GASTROINTESTINAL: Abdomen soft, non-tender, nondistended. No hepato-splenomegaly , or palpable masses. No guarding. MUSCULOSKELETAL: Extremities without clubbing, cyanosis, or edema. No joint tenderness, effusion, or edema noted. No calf tenderness. NEUROLOGICAL: Awake and alert. Cranial nerves II through XII intact. Motor and sensory grossly within normal limits. Normal speech. Laboratory Laboratory Tests Test 04/11/17 12:51 04/11/17 14:00 04/11/17 14:12 Urine Color YELLOW Urine Turbidity HAZY Urine pH 5.5 Urine Specific [place] 1.020 Urine Protein NEG Urine Glucose (UA) NEG Urine Ketones 10 Urine Occult Blood SMALL Urine Nitrite NEG Urine Bilirubin NEG Urine Urobilinogen LESS THAN 2.0 Urine Leukocyte Esterase SMALL Urine RBC 2 Urine WBC 2 Urine Squamous Epithelial Cells 2 Urine Transitional Epithelial Cells <1 Urine Hyaline Casts 3 Urine Mucus FEW Microscopic Urinalysis Comment CULT NOT INDICATED White Blood Count 8.0 Red Blood Count 2.52 Hemoglobin 7.4 Hematocrit 21.6 Mean Corpuscular Volume 85.9 Mean Corpuscular Hemoglobin 29.2 Mean Corpuscular Hemoglobin Concent 34.0 Red Cell Distribution Width 13.9 Platelet Count 312 Mean Platelet Volume 6.5 Neutrophils (%) (Auto) 78.4 Lymphocytes (%) (Auto) 14.7 Monocytes (%) (Auto) 4.6 Eosinophils (%) (Auto) 1.6 Basophils (%) (Auto) 0.7 Neutrophils # (Auto) 6.3 Lymphocytes # (Auto) 1.2 Monocytes # (Auto) 0.4 Eosinophils # (Auto) 0.1 Basophils # (Auto) 0.1 CBC Comment DIFF FINAL Differential Comment Blood Urea Nitrogen 14 Creatinine 0.62 Random Glucose 94 Total Protein 7.5 Albumin 3.6 Calcium Level 8.9 Alkaline Phosphatase 60 Aspartate Amino Transf (AST/SGOT) 13 Alanine Aminotransferase (ALT/SGPT) 15 Total Bilirubin 0.4 Sodium Level 137 Potassium Level 3.7 Chloride Level 105 Carbon Dioxide Level 24.9 Anion Gap 7 Estimat Glomerular Filtration Rate 102 Lactic Acid Level 1.0 Troponin I LESS THAN 0.02 Lipase 93 Date/Time Source Procedure Growth Status 04/11/17 14:12 Blood Peripheral Aerobic Blood Culture Pending Received 04/11/17 14:12 Blood Peripheral Anaerobic Blood Culture Pending Received Result Diagram: 04/11/17 1412 04/11/17 1412 Septic Shock Reassessment Septic shock perfusion: reassessment completed Caprini VTE Risk Assessment Caprini VTE Risk Assessment: No/Low Risk (score <= 1) Caprini Risk Assessment Model Point Value = 1 Point Value = 2 Point Value = 3 Point Value = 5 Age 41-60 Minor surgery BMI > 25 kg/m2 Swollen legs Varicose veins or History of unexplained or recurrent spontaneous Oral contraceptives or hormone replacement Sepsis (< 1 month) Serious lung disease, including pneumonia (< 1 month) Abnormal pulmonary function Acute myocardial infarction Congestive heart failure (< 1 month) History of inflammatory bowel disease Medical patient at bed rest Age 61-74 Arthroscopic surgery Major open surgery (> 45 min) Laparoscopic surgery (> 45 min) Malignancy Confined to bed (> 72 hours) Immobilizing plaster cast Central venous access Age >= 75 History of VTE Family history of VTE Factor V Leiden Prothrombin [id number] Lupus anticoagulant Anticardiolipin antibodies Elevated serum homocysteine Heparin-induced thrombocytopenia Other congenital or acquired thrombophilia Stroke (< 1 month) Elective arthroplasty Hip, pelvis, or leg fracture Acute spinal cord injury (< 1 month) Prophylaxis Regimen Total Risk Factor Score Risk Level Prophylaxis Regimen 0-1 Low Early ambulation 2 Moderate Order ONE of the following: *Sequential Compression Device (SCD) *Heparin 5000 units SQ BID 3-4 Higher Order ONE of the following medications: *Heparin 5000 units SQ TID *Enoxaparin/Lovenox 40 mg SQ daily (WT < 150 kg, CrCl > 30 mL/min) *Enoxaparin/Lovenox 30 mg SQ daily (WT < 150 kg, CrCl > 10-29 mL/min) *Enoxaparin/Lovenox 30 mg SQ BID (WT < 150 kg, CrCl > 30 mL/min) AND/OR *Sequential Compression Device (SCD) 5 or more Highest Order ONE of the following medications: *Heparin 5000 units SQ TID (Preferred with Epidurals) *Enoxaparin/Lovenox 40 mg SQ daily (WT < 150 kg, CrCl > 30 mL/min) *Enoxaparin/Lovenox 30 mg SQ daily (WT < 150 kg, CrCl > 10-29 mL/min) *Enoxaparin/Lovenox 30 mg SQ BID (WT < 150 kg, CrCl > 30 mL/min) AND *Sequential Compression Device (SCD) Assessment and Plan Assessment and Plan 52YO female s/p right breast cancer s/p bilateral mastectomy with reconstruction with right breast mycobacterium infection requiring implant removal and pt presenting with 1x vertigo and weakness and found to have anemia with Hgb 7.4 on admit. Admitted for OBS while we transfuse 1u PRBCs. Dr Calles , ID, has been consulted and believes pt's sxs are due to amikacin side effect and will select and dose antibiotics. She is on biaxine/amikacin/zyvox which were started about 10 days ago Pt seen with Dr Flaco Goodson Code Status FULL code Problem List: (1) Breast infection in female ICD Codes: N61.0 - Mastitis without abscess Status: Acute Plan: Mycobacterium abscessus right breast infection following bilateral mastectomy for right breast cancer and reconstruction; right breast implant removed 03/30 ID consulted, pt followed by Dr Calles who will order abx -Pt on day 10 of biaxin/amikacin/zyvox -Start Tigecycline 100mg IV once and 50mg IV once -Clarithromycin 500mg PO q12h -Start Cefoxitin 2g IV q6h (2) Chest pain ICD Codes: R07.9 - Chest pain, unspecified Status: Acute Plan: Pt experienced mild CP on arrival to ED that the pt ascribes to anxiety attack that resolved before the interview -EKG with NSR and no acute change since last one 03/29; however QTc 446ms -Troponin <0.02 -Caution with QTc prolonging medications (3) Anemia ICD Codes: D64.9 - Anemia, unspecified Status: Acute Plan: Acute drop in Hgb from 04/04 to 04/11 10.5-->7.4; thought to be side effect of zyvox treatment for breast infection -Type and screen -Transfuse 1u PRBCs today -F/u H&H following transfusion -PRN Benadryl (4) Vertigo ICD Codes: R42 - Dizziness and giddiness Plan: Pt with vertigo this morning x1; thought to be medication side effect from amikacin (5) FEN/GI/PPx Status: Acute Plan: Fluids: PO fluids Electrolytes: wnl, will replete as necessary Nutrition: regular diet GI: none indicated PPx: SCDs Nausea: Zofran 4mg PO q6h and Reglan IM q6h Problem Qualifiers (1) Chest pain: Qualified Codes: R07.89 - Other chest pain (2) Anemia: Qualified Codes: D64.2 - 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
[2017-04-11] MEDS ORDERED: MAGNESIUM HYDROXIDE SUSP 30 ML CUP PO PRN (17:00)
[2017-04-11] MEDS ORDERED: SODIUM CHLOR 0.9% 250 ML INJ 250 ML IV ONE (17:00)
[2017-04-11] MEDS ORDERED: diphenhydrAMINE HCL 25 MG CAP PO PRN (17:00)
[2017-04-11] MEDS ORDERED: SENNOSIDES 8.6 MG TAB PO PRN (17:00)
[2017-04-11] MEDS ORDERED: ONDANSETRON HCL 4 MG/2 ML VIAL IVP PRN (17:00)
[2017-04-11] MEDS ORDERED: BISACODYL 10 MG SUPP RECTAL PRN (17:00)
[2017-04-11] MEDS ORDERED: NALOXONE HCL 0.4 MG/ML AMP IV PUSH PRN (17:00)
[2017-04-11] MEDS ORDERED: SODIUM CHLORIDE 0.9% FLUSH 10 ML FLUSH IV FLUSH PRN (17:00)
[2017-04-11] MEDS ORDERED: ACETAMINOPHEN 325 MG TAB PO PRN (17:00)
[2017-04-11] MEDS ORDERED: METOCLOPRAMIDE HCL 10 MG/2 ML VIAL IV PUSH PRN ×2 (17:00→18:00)
[2017-04-11] MEDS ORDERED: LACTULOSE SYRUP 20 GM/30 ML CUP PO PRN (17:00)
[2017-04-11 17:34] VITALS: BP 100/55; PULSE 76; RESP 16; TEMP 97.4; O2SAT 100
--- NOTE | 2017-04-11 17:46 | PD.ID.CON ---
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 + some mild non productive cough Review of Systems Constitutional: COMPLAINS OF: Weight loss, Change in appetite Ears, nose, mouth, throat: COMPLAINS OF: Vertigo Respiratory: COMPLAINS OF: Cough Cardiovascular: COMPLAINS OF: Chest pain Except as stated in HPI: all other systems reviewed are Neg Past Family Social History Allergies: Coded Allergies: penicillin G (Verified Allergy, Mild, Swelling, 03/30/17) Reported Medications Biaxine 500 bid zyvox 600 bid Amikacin 750 daily iv Physical Exam Vital Signs Vital Signs Date Time Temp Pulse Resp B/P (MAP) Pulse Ox O2 Delivery O2 Flow Rate FiO2 04/11/17 13:01 97.6 88 14 100/70 (80) 100 Physical Exam CONSTITUTIONAL/GENERAL: This is an adequately nourished patient, in no apparent distress. TUBES/LINES/DRAINS: PICC LUE - OK SKIN: No jaundice, rashes, or lesions. Skin temperature appropriate. Not diaphoretic. BREASTS: R breast with well healed incision Drain in place with merky serous drainage + firm non tender lumps in the IIQ Drain in OUQ Resolution of edema na derytehema, thou some tenderness still present HEAD: Atraumatic. Normocephalic. EYES: Pupils equal and round and reactive. Extraocular motions intact. No scleral icterus. No injection or drainage. Fundi not examined. + horizolntal nystagmus present (mild) ENT: Hearing grossly normal. Nose without bleeding or purulent drainage. Throat without visible erythema, exudates, masses, or lesions. NECK: Trachea midline. Supple, nontender. CARDIOVASCULAR: Regular rate and rhythm without murmurs, gallops, or rubs. No JVD. Peripheral pulses symmetric. RESPIRATORY/CHEST: Symmetric, unlabored respirations. Clear to auscultation. Breath sounds equal bilaterally. No wheezes, rales, or rhonchi. GASTROINTESTINAL: Abdomen soft, non-tender, nondistended. No hepato-splenomegaly , or palpable masses. No guarding. Bowel sounds present. GENITOURINARY: Without palpable bladder distension. MUSCULOSKELETAL: Extremities without clubbing, cyanosis, or edema. No calf tenderness. No mottling or clubbing. NEUROLOGICAL: Awake and alert. Motor and sensory grossly within normal limits. Follows commands. Cognitively sharp. Moves all extremities. PSYCHIATRIC: No obvious anxiety/depression. no apparent hallucinations or other psychotic thought process. Laboratory Laboratory Tests Test 04/11/17 12:51 04/11/17 14:00 04/11/17 14:12 Urine Color YELLOW Urine Turbidity HAZY Urine pH 5.5 Urine Specific [place] 1.020 Urine Protein NEG Urine Glucose (UA) NEG Urine Ketones 10 Urine Occult Blood SMALL Urine Nitrite NEG Urine Bilirubin NEG Urine Urobilinogen LESS THAN 2.0 Urine Leukocyte Esterase SMALL Urine RBC 2 Urine WBC 2 Urine Squamous Epithelial Cells 2 Urine Transitional Epithelial Cells <1 Urine Hyaline Casts 3 Urine Mucus FEW Microscopic Urinalysis Comment CULT NOT INDICATED White Blood Count 8.0 Red Blood Count 2.52 Hemoglobin 7.4 Hematocrit 21.6 Mean Corpuscular Volume 85.9 Mean Corpuscular Hemoglobin 29.2 Mean Corpuscular Hemoglobin Concent 34.0 Red Cell Distribution Width 13.9 Platelet Count 312 Mean Platelet Volume 6.5 Neutrophils (%) (Auto) 78.4 Lymphocytes (%) (Auto) 14.7 Monocytes (%) (Auto) 4.6 Eosinophils (%) (Auto) 1.6 Basophils (%) (Auto) 0.7 Neutrophils # (Auto) 6.3 Lymphocytes # (Auto) 1.2 Monocytes # (Auto) 0.4 Eosinophils # (Auto) 0.1 Basophils # (Auto) 0.1 CBC Comment DIFF FINAL Differential Comment Blood Urea Nitrogen 14 Creatinine 0.62 Random Glucose 94 Total Protein 7.5 Albumin 3.6 Calcium Level 8.9 Alkaline Phosphatase 60 Aspartate Amino Transf (AST/SGOT) 13 Alanine Aminotransferase (ALT/SGPT) 15 Total Bilirubin 0.4 Sodium Level 137 Potassium Level 3.7 Chloride Level 105 Carbon Dioxide Level 24.9 Anion Gap 7 Estimat Glomerular Filtration Rate 102 Lactic Acid Level 1.0 Troponin I LESS THAN 0.02 Lipase 93 Date/Time Source Procedure Growth Status 04/11/17 14:12 Blood Peripheral Aerobic Blood Culture Pending Received 04/11/17 14:12 Blood Peripheral Anaerobic Blood Culture Pending Received Result Diagram: 04/11/17 1412 04/11/17 1412 Imaging CXR - negative EKG: QTc 449 ms Assessment and Plan Assessment and Plan M abscessus R breast infection with h/o ipsilateral breast ca undergoing XRT - her sensitivities from [facility] are still P and probably will take another week to be available Pt developped multiple toxicities to her NTM tx including bone marrow suppression and signs of VIII cranial nerve toxicity which precludes me from using both zyvox and amikacin - symptomatic anemia 2/2 medical=tion side effect (zyvox) - vertigo 2/2 medication side effect (amikacin) SHe will need blood transfusion Plan: start cefoxitine 2 gm q 4 hrs start tygacyl cont with XRT. Pt infection requires long treatment to irradicate and rtherefore XRT can not be postponed 2/2 risk of cancer spread further tx was dw pt : unfortunately bvery limited to intrinsic resistance of the organism and poor tolerability at this point will try biaxine, tygacyl , cefoxitine combo hoping that by the end of the week the sensitivities will be back Avoid QT prolonging agents, including Zofran OK to use Reglan Discussed Condition With dw Dr Richie Nolan and Dr Santana family @ b/s pt Christianne Calles MD Apr 11, 2017 17:46
[2017-04-11] MEDS ORDERED: TIGECYCLINE INJ 100 MG in SODIUM CHLORIDE 0.9% INJ 100 ML IV ONE (20:00)
[2017-04-11] MEDS ORDERED: ceFOXitin INJ 2 GM in SODIUM CHLORIDE 0.9% INJ 100 ML IV SCH (20:00)
[2017-04-11 20:16] VITALS: BP 143/58; PULSE 92; RESP 16; TEMP 98; O2SAT 99
[2017-04-11 20:34] VITALS: BP 143/58; PULSE 92; RESP 16; TEMP 98; O2SAT 99
[2017-04-11 20:55] VITALS: BP 105/61; PULSE 86; RESP 16; TEMP 98.6; O2SAT 97
[2017-04-11] MEDS ORDERED: DOCUSATE SODIUM 50 MG/SENNA 8.6 MG TAB PO SCH (21:00)
[2017-04-11] MEDS ORDERED: CLARITHROMYCIN 500 MG TAB PO SCH (21:00)
[2017-04-11] MEDS: SODIUM CHLORIDE 0.9% FLUSH 10 ML FLUSH IV FLUSH SCH (23:42)
[2017-04-12 00:13] VITALS: BP 105/70; PULSE 84; RESP 16; TEMP 98; O2SAT 98
[2017-04-12] MEDS: ceFOXitin INJ 2 GM in SODIUM CHLORIDE 0.9% INJ 100 ML IV SCH ×2 (00:21→05:35)
[2017-04-12 04:09] LABS: AUTOMATED NEUTROPHIL # 5.5 TH/MM3 (1.8-7.7); BASOPHIL # 0.1 TH/MM3 (0-0.2); BASOPHIL % 0.8 % (0.0-2.0); EOSINOPHIL # 0.3 TH/MM3 (0-0.4); EOSINOPHIL % 4.2 % (0.0-4.0); HEMATOCRIT 31.7 % (35.0-46.0); HEMOGLOBIN 10.7 GM/DL (11.6-15.3); LYMPH % 17.3 % (9.0-44.0); LYMPHOCYTE # 1.3 TH/MM3 (1.0-4.8); MEAN CELL VOLUME 86.4 FL (80.0-100.0); MEAN CORPUSCULAR HEMOGLOBIN 29.1 PG (27.0-34.0); MEAN CORPUSCULAR HGB CONC 33.7 % (32.0-36.0); MEAN PLATELET VOLUME 6.5 FL (7.0-11.0); MONO % 5.6 % (0.0-8.0); MONOCYTE # 0.4 TH/MM3 (0-0.9); NEUT % 72.1 % (16.0-70.0); PLATELET COUNT 209 TH/MM3 (150-450); RED BLOOD COUNT 3.67 MIL/MM3 (4.00-5.30); RED CELL DISTRIBUTION WIDTH 13.8 % (11.6-17.2); WHITE BLOOD COUNT 7.6 TH/MM3 (4.0-11.0)
[2017-04-12 04:31] LABS: BICARBONATE 26.1 MEQ/L (21.0-32.0); CALCIUM 8.4 MG/DL (8.5-10.1); CREATININE 0.79 MG/DL (0.50-1.00)
[2017-04-12 04:56] VITALS: BP 133/67; PULSE 82; RESP 14; TEMP 98.6; O2SAT 99
[2017-04-12] MEDS ORDERED: TIGECYCLINE INJ 50 MG in SODIUM CHLORIDE 0.9% INJ 100 ML IV SCH (08:00)
--- NOTE | 2017-04-12 08:25 | HHI.DCPOC ---
Discharge Care Plan Diagnosis: (1) Breast infection in female (2) Anemia Goals to Promote Your Health * To prevent worsening of your condition and complications * To maintain your health at the optimal level Directions to Meet Your Goals Take your medications as prescribed Follow your dietary instruction Follow activity as directed Keep your appointments as scheduled Take your immunizations and boosters as scheduled If your symptoms worsen call your PCP, if no PCP go to Urgent Care Center or Emergency Room Smoking is Dangerous to Your Health. Avoid second hand smoke Call the 24-hour hour crisis hotline for domestic abuse at Sebastian Goodson MD, R3 Apr 12, 2017 08:25
--- NOTE | 2017-04-12 08:39 | HHI.HP ---
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 She presented to the ED after several days of nausea, feeling "lousy", and a dry mouth. When she stood up at work yesterday morning, the room started spinning x1; she did not fall, has had no emesis, no abdominal pain, but did experience a little CP upon arrival to the ED that she attributes to an anxiety attack that has resolved. Associated sx includes a feeling of pressure in both ears x2 days. She had surgery on to have the right implant removed. Pt is followed by Dr Calles, ID, and Dr Casey, med oncology. Denies current CP, SOB, N/V/D, dizziness, and DVT pain. Her H/H was low so she was transfused last night and feels better today and is more energetic. Her abx were changed based on her side effects and she will go home with the changes she has had here in the hospital. Review of Systems Other Constitutional: COMPLAINS OF: Fatigue, Dizziness, Night Sweats (2 weeks has been on amikacin), DENIES: Chills Eyes: DENIES: Diplopia, Vision loss Ears, nose, mouth, throat: COMPLAINS OF: Vertigo (with presssure), DENIES: Tinnitus, Throat pain, Hoarseness, Running Nose Respiratory: COMPLAINS OF: Cough, DENIES: Shortness of breath Cardiovascular: COMPLAINS OF: Chest pain, Palpitations, DENIES: Syncope Gastrointestinal: DENIES: Abdominal pain, Constipation, Diarrhea, Nausea, Vomiting Genitourinary: COMPLAINS OF: Dysuria, DENIES: Urinary frequency, Urinary incontinence Musculoskeletal: COMPLAINS OF: Muscle aches, Stiffness, Back pain Integumentary: DENIES: Pruritus, Rash Hematologic/lymphatic: DENIES: Lymphadenopathy Neurologic: DENIES: Headache, Paresthesias, Seizures Past Family Social History Past Medical History Anxiety Arthritis Previous chemotherapy Last dose 10/17/2016 R breast mycobacterium abscess 2018 R breast cancer 06/25/16 - Poorly diff IDC, 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 Tobacco - quit 1yr ago; 1.5 PPD x 30 yrs. EtOH - 1 day per week. Physical Exam Vital Signs Vital Signs Date Time Temp Pulse Resp B/P (MAP) Pulse Ox O2 Delivery O2 Flow Rate FiO2 04/12/17 04:56 98.6 82 14 133/67 (89) 99 04/12/17 00:13 98.0 84 16 105/70 (82) 98 04/11/17 20:55 98.6 86 16 105/61 97 04/11/17 20:34 98.0 92 16 143/58 99 04/11/17 20:16 98.0 92 16 143/58 (86) 99 04/11/17 17:34 97.4 76 16 100/55 (70) 100 04/11/17 13:01 97.6 88 14 100/70 (80) 100 Physical Exam GENERAL: This is a well-nourished, well-developed patient in no apparent distress SKIN: No rashes, ecchymoses or lesions. Cool and dry. Tattoo over left breast. healed scars bilateral back from breast reconstruction HEAD: Atraumatic. Normocephalic. EYES: Pupils equal round and reactive. Extraocular motions intact. No scleral icterus. No injection or drainage. ENT: Nose without bleeding or drainage. Airway patent. NECK: Trachea midline. Supple, nontender, no meningeal signs. CARDIOVASCULAR: Regular rate and rhythm without murmurs, gallops, or rubs. RESPIRATORY: Clear to auscultation. Breath sounds equal bilaterally. No wheezes , rales, or rhonchi. CHEST: Right breast with transverse surgical scar c/d/i with stitches and SHIRA drain with <25cc on lateral right chest below the level of the breast draining yellowish/serosanguineous fluid with moderate sediment. Area around drain TTP with 2cm area superior and posterior to drain tube with mild induration and no fluctuance. GASTROINTESTINAL: Abdomen soft, non-tender, nondistended. No hepato-splenomegaly , or palpable masses. No guarding. MUSCULOSKELETAL: Extremities without clubbing, cyanosis, or edema. No joint tenderness, effusion, or edema noted. No calf tenderness. NEUROLOGICAL: Awake and alert. Cranial nerves II through XII intact. Motor and sensory grossly within normal limits. Normal speech. Laboratory Laboratory Tests Test 04/11/17 12:51 04/11/17 14:00 04/11/17 14:12 04/12/17 03:55 Urine Color YELLOW Urine Turbidity HAZY Urine pH 5.5 Urine Specific [place] 1.020 Urine Protein NEG Urine Glucose (UA) NEG Urine Ketones 10 Urine Occult Blood SMALL Urine Nitrite NEG Urine Bilirubin NEG Urine Urobilinogen LESS THAN 2.0 Urine Leukocyte Esterase SMALL Urine RBC 2 Urine WBC 2 Urine Squamous Epithelial Cells 2 Urine Transitional Epithelial Cells <1 Urine Hyaline Casts 3 Urine Mucus FEW Microscopic Urinalysis Comment CULT NOT INDICATED White Blood Count 8.0 7.6 Red Blood Count 2.52 3.67 Hemoglobin 7.4 10.7 Hematocrit 21.6 31.7 Mean Corpuscular Volume 85.9 86.4 Mean Corpuscular Hemoglobin 29.2 29.1 Mean Corpuscular Hemoglobin Concent 34.0 33.7 Red Cell Distribution Width 13.9 13.8 Platelet Count 312 209 Mean Platelet Volume 6.5 6.5 Neutrophils (%) (Auto) 78.4 72.1 Lymphocytes (%) (Auto) 14.7 17.3 Monocytes (%) (Auto) 4.6 5.6 Eosinophils (%) (Auto) 1.6 4.2 Basophils (%) (Auto) 0.7 0.8 Neutrophils # (Auto) 6.3 5.5 Lymphocytes # (Auto) 1.2 1.3 Monocytes # (Auto) 0.4 0.4 Eosinophils # (Auto) 0.1 0.3 Basophils # (Auto) 0.1 0.1 CBC Comment DIFF FINAL DIFF FINAL Differential Comment Blood Urea Nitrogen 14 16 Creatinine 0.62 0.79 Random Glucose 94 96 Total Protein 7.5 Albumin 3.6 Calcium Level 8.9 8.4 Alkaline Phosphatase 60 Aspartate Amino Transf (AST/SGOT) 13 Alanine Aminotransferase (ALT/SGPT) 15 Total Bilirubin 0.4 Sodium Level 137 140 Potassium Level 3.7 4.5 Chloride Level 105 108 Carbon Dioxide Level 24.9 26.1 Anion Gap 7 6 Estimat Glomerular Filtration Rate 102 77 Lactic Acid Level 1.0 Troponin I LESS THAN 0.02 Lipase 93 Date/Time Source Procedure Growth Status 04/11/17 14:12 Blood Peripheral Aerobic Blood Culture Pending Received 04/11/17 14:12 Blood Peripheral Anaerobic Blood Culture Pending Received Result Diagram: 04/12/17 0355 04/12/17 0355 Kannan VTE Risk Assessment Kannan VTE Risk Assessment: No/Low Risk (score <= 1) Caprini Risk Assessment Model Point Value = 1 Point Value = 2 Point Value = 3 Point Value = 5 Age 41-60 Minor surgery BMI > 25 kg/m2 Swollen legs Varicose veins or History of unexplained or recurrent spontaneous Oral contraceptives or hormone replacement Sepsis (< 1 month) Serious lung disease, including pneumonia (< 1 month) Abnormal pulmonary function Acute myocardial infarction Congestive heart failure (< 1 month) History of inflammatory bowel disease Medical patient at bed rest Age 61-74 Arthroscopic surgery Major open surgery (> 45 min) Laparoscopic surgery (> 45 min) Malignancy Confined to bed (> 72 hours) Immobilizing plaster cast Central venous access Age >= 75 History of VTE Family history of VTE Factor V Leiden Prothrombin [id number] Lupus anticoagulant Anticardiolipin antibodies Elevated serum homocysteine Heparin-induced thrombocytopenia Other congenital or acquired thrombophilia Stroke (< 1 month) Elective arthroplasty Hip, pelvis, or leg fracture Acute spinal cord injury (< 1 month) Prophylaxis Regimen Total Risk Factor Score Risk Level Prophylaxis Regimen 0-1 Low Early ambulation 2 Moderate Order ONE of the following: *Sequential Compression Device (SCD) *Heparin 5000 units SQ BID 3-4 Higher Order ONE of the following medications: *Heparin 5000 units SQ TID *Enoxaparin/Lovenox 40 mg SQ daily (WT < 150 kg, CrCl > 30 mL/min) *Enoxaparin/Lovenox 30 mg SQ daily (WT < 150 kg, CrCl > 10-29 mL/min) *Enoxaparin/Lovenox 30 mg SQ BID (WT < 150 kg, CrCl > 30 mL/min) AND/OR *Sequential Compression Device (SCD) 5 or more Highest Order ONE of the following medications: *Heparin 5000 units SQ TID (Preferred with Epidurals) *Enoxaparin/Lovenox 40 mg SQ daily (WT < 150 kg, CrCl > 30 mL/min) *Enoxaparin/Lovenox 30 mg SQ daily (WT < 150 kg, CrCl > 10-29 mL/min) *Enoxaparin/Lovenox 30 mg SQ BID (WT < 150 kg, CrCl > 30 mL/min) AND *Sequential Compression Device (SCD) Assessment and Plan Assessment and Plan 52YO female s/p right breast cancer s/p bilateral mastectomy with reconstruction with right breast mycobacterium infection requiring implant removal and pt presenting with 1x vertigo and weakness and found to have anemia with Hgb 7.4 on admit. Admitted for OBS while we transfused 1u PRBCs. Dr Calles, ID, has been consulted and believes pt's sxs are due to amikacin side effect and will select and dose antibiotics. She is on Biaxin/amikacin/zyvox which were started about 10 days ago she is doing well and has close follow up with ID, Onc, etc. Per request, her HHC form was completed for her current abx she has been receiving in the hospital Problem List: (1) Breast infection in female ICD Codes: N61.0 - Mastitis without abscess Status: Acute Plan: Mycobacterium abscessus right breast infection following bilateral mastectomy for right breast cancer and reconstruction; right breast implant removed 03/30 ID consulted, pt followed by Dr Calles who will order abx -Pt on day 10 of biaxin/amikacin/zyvox -Start Tigecycline 100mg IV once and 50mg IV once -Clarithromycin 500mg PO q12h -Start Cefoxitin 2g IV q6h (2) Chest pain ICD Codes: R07.9 - Chest pain, unspecified Status: Acute Plan: Pt experienced mild CP on arrival to ED that the pt ascribes to anxiety attack that resolved before the interview -EKG with NSR and no acute change since last one 03/29; however QTc 446ms -Troponin <0.02 -Caution with QTc prolonging medications (3) Anemia ICD Codes: D64.9 - Anemia, unspecified Status: Acute Plan: Acute drop in Hgb from 04/04 to 04/11 10.5-->7.4; thought to be side effect of zyvox treatment for breast infection -Type and screen -Transfused 1u PRBCs -H&H following transfusion fine -PRN Benadryl (4) Vertigo ICD Codes: R42 - Dizziness and giddiness Plan: Pt with vertigo this morning x1; thought to be medication side effect from amikacin (5) FEN/GI/PPx Status: Acute Plan: Fluids: PO fluids Electrolytes: wnl, will replete as necessary Nutrition: regular diet GI: none indicated PPx: SCDs Nausea: Zofran 4mg PO q6h and Reglan IM q6h Problem Qualifiers (1) Chest pain: Qualified Codes: R07.89 - Other chest pain (2) Anemia: Qualified Codes: 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
[2017-04-12 08:44] VITALS: BP 117/68; PULSE 78; RESP 16; TEMP 98.1; O2SAT 99
[2017-04-12] MEDS: SODIUM CHLORIDE 0.9% FLUSH 10 ML FLUSH IV FLUSH SCH (09:00)
--- NOTE | 2017-04-12 09:50 | HHI.FF ---
Face to Face Verification Diagnosis: (1) Breast infection in female Home Health Nursing Order: Medical education Signs/symptoms of disease process Medication education-adverse effect Wound care and dressing changes IV medication administration I have seen patient Margot Lorenzana on 04/12/17. My clinical findings support the need for the requested home health care services because: Infection w/ risk of complications Injectable med education/admin I certify that my clinical findings support that this patient is homebound because: Unsafe to leave home unassisted Sebastian Goodson MD, R3 Apr 12, 2017 09:50
[2017-04-12] MEDS ORDERED: [UNRECOGNIZED DRUG - CODE] IV (09:53)
[2017-04-12] MEDS ORDERED: [UNRECOGNIZED DRUG - CODE] IV (09:53)
[2017-04-12] MEDS ORDERED: CLAR500T PO (09:53)
--- NOTE | 2017-04-12 22:47 | EKG ---
Date Performed: 04/11/2017 Time Performed: 14:56:39 PTAGE: 52 years EKG: Sinus rhythm NORMAL ECG PREVIOUS TRACING : 03/29/2017 12.02 Since the prior tracing, there has been no significant patten stu DOCTOR: Clifford Lamb Interpretating Date/Time 04/12/2017 22:45:51
--- NOTE | 2017-04-14 15:57 | PD ---
Physical Exam Date Seen by Provider: May 09, 2017 Time Seen by Provider: 16:00 Narrative I am seeing this patient with Sydnie Briceño PA-C. 52-year-old female with unfortunate history of breast cancer who is status post bilateral mastectomy, whose had reconstructive surgery including implants, there were complicated with infection of Mycobacterium. The patient has been on amikacin and presented with complaints of vertigo, chest pain, palpitations, muffled hearing , shortness of breath. She is followed by Dr. Larry Calles, infectious disease physician. Data Data Last Documented VS Vital Signs Date Time Temp Pulse Resp B/P (MAP) Pulse Ox O2 Delivery O2 Flow Rate FiO2 04/11/17 13:01 97.6 88 14 100/70 (80) 100 Orders Orders Complete Blood Count With Diff (04/11/17 13:04) Comprehensive Metabolic Panel (04/11/17 13:04) Lipase (04/11/17 13:04) Urinalysis - C+S If Indicated (04/11/17 13:04) Sepsis Workup Initiated (04/11/17 ) Lactic Acid Sepsis Protocol (04/11/17 13:15) Blood Culture (04/11/17 13:15) Chest, Single Ap (04/11/17 13:15) Blood Glucose (04/11/17 13:15) Ecg Monitoring (04/11/17 13:15) Iv Access Insert/Monitor (04/11/17 13:15) Oximetry (04/11/17 13:15) Sodium Chlor 0.9% 1000 Ml Inj (Ns 1000 M (04/11/17 13:15) Ct Brain W/O Iv Contrast(Rout) (04/11/17 ) Electrocardiogram (04/11/17 ) Troponin I (04/11/17 13:29) Sodium Chlor 0.9% 1000 Ml Inj (Ns 1000 M (04/11/17 13:30) Ondansetron Inj (Zofran Inj) (04/11/17 13:30) Amikacin Trough (04/11/17 14:29) Consult Infectious Disease (04/11/17 ) Diet Regular Basic (04/11/17 Lunch) (Hub Use Only)Inp Phy Cons/Ref (04/11/17 14:59) Type And Screen (04/11/17 15:04) Admit Order (Ed Use Only) (04/11/17 15:45) Labs Laboratory Tests Test 04/11/17 12:51 04/11/17 14:00 04/11/17 14:12 Amikacin Level Trough <0.8 Urine Color YELLOW Urine Turbidity HAZY Urine pH 5.5 Urine Specific [place] 1.020 Urine Protein NEG mg/dL Urine Glucose (UA) NEG mg/dL Urine Ketones 10 mg/dL Urine Occult Blood SMALL Urine Nitrite NEG Urine Bilirubin NEG Urine Urobilinogen LESS THAN 2.0 MG/DL Urine Leukocyte Esterase SMALL Urine RBC 2 /hpf Urine WBC 2 /hpf Urine Squamous Epithelial Cells 2 /hpf Urine Transitional Epithelial Cells <1 /hpf Urine Hyaline Casts 3 /lpf Urine Mucus FEW /lpf Microscopic Urinalysis Comment CULT NOT INDICATED White Blood Count 8.0 TH/MM3 Red Blood Count 2.52 MIL/MM3 Hemoglobin 7.4 GM/DL Hematocrit 21.6 % Mean Corpuscular Volume 85.9 FL Mean Corpuscular Hemoglobin 29.2 PG Mean Corpuscular Hemoglobin Concent 34.0 % Red Cell Distribution Width 13.9 % Platelet Count 312 TH/MM3 Mean Platelet Volume 6.5 FL Neutrophils (%) (Auto) 78.4 % Lymphocytes (%) (Auto) 14.7 % Monocytes (%) (Auto) 4.6 % Eosinophils (%) (Auto) 1.6 % Basophils (%) (Auto) 0.7 % Neutrophils # (Auto) 6.3 TH/MM3 Lymphocytes # (Auto) 1.2 TH/MM3 Monocytes # (Auto) 0.4 TH/MM3 Eosinophils # (Auto) 0.1 TH/MM3 Basophils # (Auto) 0.1 TH/MM3 CBC Comment DIFF FINAL Differential Comment Blood Urea Nitrogen 14 MG/DL Creatinine 0.62 MG/DL Random Glucose 94 MG/DL Total Protein 7.5 GM/DL Albumin 3.6 GM/DL Calcium Level 8.9 MG/DL Alkaline Phosphatase 60 U/L Aspartate Amino Transf (AST/SGOT) 13 U/L Alanine Aminotransferase (ALT/SGPT) 15 U/L Total Bilirubin 0.4 MG/DL Sodium Level 137 MEQ/L Potassium Level 3.7 MEQ/L Chloride Level 105 MEQ/L Carbon Dioxide Level 24.9 MEQ/L Anion Gap 7 MEQ/L Estimat Glomerular Filtration Rate 102 ML/MIN Lactic Acid Level 1.0 mmol/L Troponin I LESS THAN 0.02 NG/ML Lipase 93 U/L [facility] Medical Record Reviewed: Yes Supervised Visit with ROSALES: Yes Narrative Course 52-year-old female with history of breast cancer, status post bilateral mastectomy, who presents with vertigo, chest pain, palpitations, shortness of breath, muffled hearing. The patient is on amikacin. The patient is followed by Dr. Calles. The patient's symptoms appear to be secondary to amikacin toxicity. Unfortunately, the patient has an extremely resistant Mycobacterium. She currently has a drain in her right surgical site. Given her symptoms and the toxicity, she will be admitted under observation. The question is now what medication should she be on since the amikacin appears to be causing issues. She will be followed with Dr. Calles in the medical team. Diagnosis Primary Impression: Amikacin toxicity. Additional Impressions: Vertigo Chest pain Qualified Codes: R07.89 - Other chest pain Dyspnea Right breast infection in female Admitting Information Admitting Physician Requests: Observation Patient Instructions: Anemia (DC) Scripts Cefoxitin Inj (Cefoxitin Inj) 2 Gm/50 Ml Bagp 2 GM IV Q6H for Infection, #20 BAG 0 Refills Prov: Sebastian Goodson MD, R3 04/12/17 Tigecycline Inj (Tigecycline Inj) 50 Mg Inj 50 MG IV Q12HR for Infection, #10 BAG 0 Refills Prov: Sebastian Goodson MD, R3 04/12/17 Clarithromycin (Clarithromycin) 500 Mg Tab 500 MG PO Q12HR, #30 TAB 0 Refills Prov: Sebastian Goodson MD, R3 04/12/17 Luis Nolan MD Apr 14, 2017 15:57
== END 2017-04-12 11:10 | disposition home or self-care (01) ==
LOC: NEPC 12:55 → NEDA 15:46 → NEPGCP 17:49
PROVIDERS: ADMIT Family Medicine; ATTEND Family Medicine
DX: N61.0 Mastitis without abscess (principal); A31.9 Mycobacterial infection, unspecified; R07.89 Other chest pain; R06.02 Shortness of breath; R05 Cough; D64.2 Secondary sideroblastic anemia due to drugs and toxins; R42 Dizziness and giddiness; R11.0 Nausea; R68.2 Dry mouth, unspecified; F41.9 Anxiety disorder, unspecified; M19.90 Unspecified osteoarthritis, unspecified site; Z87.891 Personal history of nicotine dependence; Z85.3 Personal history of malignant neoplasm of breast; Z92.21 Personal history of antineoplastic chemotherapy; Z90.13 Acquired absence of bilateral breasts and nipples; Z98.82 Breast implant status
CPT/HCPCS: 36430; 70450; 71045; 80048; 80053; 80150; 81001; 83605; 83690; 84484; 85025; 86850; 86900; 86901; 86920; 87040; 93005; 96361; 96365; 96367; 96375; 96376; 99285; G0378; J0694; J2765; J7030; J7050; P9016; J3243

== ENCOUNTER → 2017-04-18 | Outpatient (CLI) | payer OTHER ==
[~2017-04-18] MED LIST changes: +CLAR500T PO; +ZYVO600T PO; +[UNRECOGNIZED DRUG - CODE] IV; +[UNRECOGNIZED DRUG - CODE] IV
[2017-04-18 16:05] LABS: AUTOMATED NEUTROPHIL # 5.4 TH/MM3 (1.8-7.7); BASOPHIL % 0.6 % (0.0-2.0); EOSINOPHIL # 0.6 TH/MM3 (0-0.4); EOSINOPHIL % 7.1 % (0.0-4.0); HEMATOCRIT 34.2 % (35.0-46.0); HEMOGLOBIN 11.7 GM/DL (11.6-15.3); LYMPHOCYTE # 1.5 TH/MM3 (1.0-4.8); MEAN CELL VOLUME 86.9 FL (80.0-100.0); MEAN CORPUSCULAR HEMOGLOBIN 29.8 PG (27.0-34.0); MEAN CORPUSCULAR HGB CONC 34.3 % (32.0-36.0); MEAN PLATELET VOLUME 7.1 FL (7.0-11.0); MONO % 11.2 % (0.0-8.0); NEUT % 63.1 % (16.0-70.0); PLATELET COUNT 266 TH/MM3 (150-450); RED BLOOD COUNT 3.93 MIL/MM3 (4.00-5.30); RED CELL DISTRIBUTION WIDTH 13.9 % (11.6-17.2); WHITE BLOOD COUNT 8.5 TH/MM3 (4.0-11.0)
[2017-04-18 16:21] LABS: ALBUMIN 3.6 GM/DL (3.4-5.0); ALT (GPT) 29 U/L (10-53); AST (GOT) 14 U/L (15-37); BICARBONATE 30.1 MEQ/L (21.0-32.0); BLOOD UREA NITROGEN 21 MG/DL (7-18); CALCIUM 8.8 MG/DL (8.5-10.1); CHLORIDE 101 MEQ/L (98-107); CREATININE 0.92 MG/DL (0.50-1.00); GLOMERULAR FILTRATION RATE 65 ML/MIN (>89); GLUCOSE,FASTING 104 MG/DL (74-99); MAGNESIUM 2.1 MG/DL (1.5-2.5); SODIUM (NA) 138 MEQ/L (136-145)
[2017-04-18 16:22] LABS: ALKALINE PHOSPHATASE 98 U/L (45-117); TOTAL BILIRUBIN ADULT 0.2 MG/DL (0.2-1.0); TOTAL PROTEIN 7.5 GM/DL (6.4-8.2)
== END ==
LOC: CLAB 15:38
PROVIDERS: ATTEND Internal Medicine Hematology & Oncology
DX: C50.411 Malignant neoplasm of upper-outer quadrant of right female breast (principal); Z79.899 Other long term (current) drug therapy; Z51.81 Encounter for therapeutic drug level monitoring
CPT/HCPCS: 36415; 80053; 80150; 83735; 85025

== ENCOUNTER → 2017-04-25 | Outpatient (CLI) | payer OTHER ==
[~2017-04-25] MED LIST changes: -AMIK4INJ2 IV; -EPIN1INJ21 IV PUSH; -ZYVO600T PO
[2017-04-25 16:24] LABS: AUTOMATED NEUTROPHIL # 4.1 TH/MM3 (1.8-7.7); BASOPHIL # 0.1 TH/MM3 (0-0.2); EOSINOPHIL # 0.4 TH/MM3 (0-0.4); EOSINOPHIL % 6.6 % (0.0-4.0); HEMATOCRIT 31.7 % (35.0-46.0); HEMOGLOBIN 10.9 GM/DL (11.6-15.3); LYMPH % 18.3 % (9.0-44.0); LYMPHOCYTE # 1.1 TH/MM3 (1.0-4.8); MEAN CORPUSCULAR HEMOGLOBIN 29.9 PG (27.0-34.0); MEAN CORPUSCULAR HGB CONC 34.4 % (32.0-36.0); MONOCYTE # 0.5 TH/MM3 (0-0.9); NEUT % 66.1 % (16.0-70.0); PLATELET COUNT 399 TH/MM3 (150-450); RED BLOOD COUNT 3.64 MIL/MM3 (4.00-5.30); RED CELL DISTRIBUTION WIDTH 14.4 % (11.6-17.2); WHITE BLOOD COUNT 6.2 TH/MM3 (4.0-11.0)
[2017-04-25 17:02] LABS: ALBUMIN 3.6 GM/DL (3.4-5.0); BICARBONATE 28.7 MEQ/L (21.0-32.0); BLOOD UREA NITROGEN 13 MG/DL (7-18); CALCIUM 9.1 MG/DL (8.5-10.1); CHLORIDE 105 MEQ/L (98-107); CREATININE 0.68 MG/DL (0.50-1.00); GLOMERULAR FILTRATION RATE 92 ML/MIN (>89); GLUCOSE,FASTING 93 MG/DL (74-99); MAGNESIUM 2.1 MG/DL (1.5-2.5); SODIUM (NA) 140 MEQ/L (136-145)
[2017-04-25 17:03] LABS: AST (GOT) 17 U/L (15-37)
[2017-04-25 17:05] LABS: ALKALINE PHOSPHATASE 74 U/L (45-117); ALT (GPT) 25 U/L (10-53); TOTAL BILIRUBIN ADULT 0.1 MG/DL (0.2-1.0); TOTAL PROTEIN 7.4 GM/DL (6.4-8.2)
== END ==
LOC: CLAB 15:51
PROVIDERS: ATTEND Internal Medicine Hematology & Oncology
DX: C50.411 Malignant neoplasm of upper-outer quadrant of right female breast (principal); Z79.899 Other long term (current) drug therapy; Z51.81 Encounter for therapeutic drug level monitoring
CPT/HCPCS: 36415; 80053; 80150; 83735; 85025

== ENCOUNTER → 2017-05-02 | Outpatient (CLI) | payer OTHER ==
[2017-05-02 10:29] LABS: AUTOMATED NEUTROPHIL # 3.2 TH/MM3 (1.8-7.7); BASOPHIL % 0.9 % (0.0-2.0); EOSINOPHIL # 0.4 TH/MM3 (0-0.4); EOSINOPHIL % 8.9 % (0.0-4.0); HEMATOCRIT 35.1 % (35.0-46.0); HEMOGLOBIN 11.8 GM/DL (11.6-15.3); LYMPH % 18.7 % (9.0-44.0); LYMPHOCYTE # 0.9 TH/MM3 (1.0-4.8); MEAN CELL VOLUME 87.6 FL (80.0-100.0); MEAN CORPUSCULAR HEMOGLOBIN 29.5 PG (27.0-34.0); MEAN CORPUSCULAR HGB CONC 33.6 % (32.0-36.0); MONO % 8.2 % (0.0-8.0); MONOCYTE # 0.4 TH/MM3 (0-0.9); NEUT % 63.3 % (16.0-70.0); PLATELET COUNT 344 TH/MM3 (150-450); RED CELL DISTRIBUTION WIDTH 15.2 % (11.6-17.2); WHITE BLOOD COUNT 5.1 TH/MM3 (4.0-11.0)
[2017-05-02 10:50] LABS: ALBUMIN 3.6 GM/DL (3.4-5.0); AST (GOT) 19 U/L (15-37); BICARBONATE 28.4 MEQ/L (21.0-32.0); BLOOD UREA NITROGEN 13 MG/DL (7-18); CALCIUM 9.4 MG/DL (8.5-10.1); CHLORIDE 104 MEQ/L (98-107); CREATININE 0.82 MG/DL (0.50-1.00); GLOMERULAR FILTRATION RATE 74 ML/MIN (>89); GLUCOSE,FASTING 70 MG/DL (74-99); SODIUM (NA) 141 MEQ/L (136-145)
[2017-05-02 10:54] LABS: ALKALINE PHOSPHATASE 68 U/L (45-117); ALT (GPT) 31 U/L (10-53); TOTAL BILIRUBIN ADULT 0.3 MG/DL (0.2-1.0); TOTAL PROTEIN 7.7 GM/DL (6.4-8.2)
== END ==
LOC: CLAB 09:59
PROVIDERS: ATTEND Internal Medicine Hematology & Oncology
DX: C50.411 Malignant neoplasm of upper-outer quadrant of right female breast (principal); Z79.899 Other long term (current) drug therapy; Z51.81 Encounter for therapeutic drug level monitoring
CPT/HCPCS: 36415; 80053; 80150; 85025

== ENCOUNTER 2017-05-03 15:20 | Day surgery (SDC) | payer OTHER ==
[2017-05-03 15:36] VITALS: BP 110/65; PULSE 84; RESP 20; TEMP 98; O2SAT 99
== END 2017-05-03 16:05 | disposition home or self-care (01) ==
LOC: HROP 15:20 → HRIP 15:21 → HROP 16:05
PROVIDERS: ATTEND Radiology Body Imaging
DX: Z45.2 Encounter for adjustment and management of vascular access device (principal); C50.911 Malignant neoplasm of unspecified site of right female breast
CPT/HCPCS: 99211; G0463

== ENCOUNTER → 2017-05-09 | Outpatient (CLI) | payer OTHER ==
[2017-05-09 14:14] LABS: AUTOMATED NEUTROPHIL # 4.7 TH/MM3 (1.8-7.7); BASOPHIL # 0.1 TH/MM3 (0-0.2); BASOPHIL % 0.7 % (0.0-2.0); EOSINOPHIL # 0.3 TH/MM3 (0-0.4); EOSINOPHIL % 4.8 % (0.0-4.0); HEMATOCRIT 35.2 % (35.0-46.0); HEMOGLOBIN 11.9 GM/DL (11.6-15.3); LYMPHOCYTE # 1.3 TH/MM3 (1.0-4.8); MEAN CELL VOLUME 88.8 FL (80.0-100.0); MEAN CORPUSCULAR HEMOGLOBIN 29.9 PG (27.0-34.0); MEAN CORPUSCULAR HGB CONC 33.7 % (32.0-36.0); MEAN PLATELET VOLUME 7.5 FL (7.0-11.0); MONOCYTE # 0.6 TH/MM3 (0-0.9); NEUT % 67.5 % (16.0-70.0); PLATELET COUNT 299 TH/MM3 (150-450); RED BLOOD COUNT 3.96 MIL/MM3 (4.00-5.30); RED CELL DISTRIBUTION WIDTH 15.8 % (11.6-17.2)
[2017-05-09 14:34] LABS: ALBUMIN 3.8 GM/DL (3.4-5.0); AST (GOT) 14 U/L (15-37); BICARBONATE 29.6 MEQ/L (21.0-32.0); BLOOD UREA NITROGEN 19 MG/DL (7-18); CALCIUM 9.3 MG/DL (8.5-10.1); CHLORIDE 105 MEQ/L (98-107); CREATININE 0.95 MG/DL (0.50-1.00); GLOMERULAR FILTRATION RATE 62 ML/MIN (>89); GLUCOSE,FASTING 107 MG/DL (74-99); MAGNESIUM 1.9 MG/DL (1.5-2.5); SODIUM (NA) 141 MEQ/L (136-145)
[2017-05-09 14:35] LABS: ALT (GPT) 24 U/L (10-53)
[2017-05-09 14:37] LABS: ALKALINE PHOSPHATASE 68 U/L (45-117); TOTAL BILIRUBIN ADULT 0.3 MG/DL (0.2-1.0); TOTAL PROTEIN 7.9 GM/DL (6.4-8.2)
== END ==
LOC: CLAB 13:46
PROVIDERS: ATTEND Internal Medicine Hematology & Oncology
DX: C50.411 Malignant neoplasm of upper-outer quadrant of right female breast (principal)
CPT/HCPCS: 36415; 80053; 83735; 85025

== ENCOUNTER 2017-05-10 15:19 | Day surgery (SDC) | payer OTHER | END 2017-05-10 16:23 | disposition home or self-care (01) | LOC: HROP 15:19 | PROVIDERS: ATTEND Radiology Body Imaging | DX: Z45.2 Encounter for adjustment and management of vascular access device (principal); C50.411 Malignant neoplasm of upper-outer quadrant of right female breast | CPT/HCPCS: 99211; G0463 ==

== ENCOUNTER → 2017-05-11 | Outpatient (CLI) | payer OTHER | LOC: CLAB 15:31 | PROVIDERS: ATTEND Internal Medicine Infectious Disease | DX: C50.411 Malignant neoplasm of upper-outer quadrant of right female breast (principal) | CPT/HCPCS: 36415; 80150 ==

== ENCOUNTER → 2017-05-17 | Outpatient (CLI) | payer OTHER ==
[2017-05-17 15:22] LABS: AUTOMATED NEUTROPHIL # 3.7 TH/MM3 (1.8-7.7); BASOPHIL # 0.1 TH/MM3 (0-0.2); BASOPHIL % 1.1 % (0.0-2.0); EOSINOPHIL # 0.3 TH/MM3 (0-0.4); EOSINOPHIL % 5.4 % (0.0-4.0); HEMATOCRIT 32.4 % (35.0-46.0); HEMOGLOBIN 11.4 GM/DL (11.6-15.3); LYMPH % 22.6 % (9.0-44.0); LYMPHOCYTE # 1.3 TH/MM3 (1.0-4.8); MEAN CELL VOLUME 87.1 FL (80.0-100.0); MEAN CORPUSCULAR HEMOGLOBIN 30.7 PG (27.0-34.0); MEAN CORPUSCULAR HGB CONC 35.2 % (32.0-36.0); MEAN PLATELET VOLUME 7.5 FL (7.0-11.0); MONO % 7.5 % (0.0-8.0); MONOCYTE # 0.4 TH/MM3 (0-0.9); NEUT % 63.4 % (16.0-70.0); PLATELET COUNT 276 TH/MM3 (150-450); RED BLOOD COUNT 3.72 MIL/MM3 (4.00-5.30); RED CELL DISTRIBUTION WIDTH 15.6 % (11.6-17.2); WHITE BLOOD COUNT 5.9 TH/MM3 (4.0-11.0)
[2017-05-17 15:57] LABS: ALBUMIN 3.7 GM/DL (3.4-5.0); AST (GOT) 29 U/L (15-37); BICARBONATE 29.1 MEQ/L (21.0-32.0); BLOOD UREA NITROGEN 14 MG/DL (7-18); CALCIUM 9.1 MG/DL (8.5-10.1); CHLORIDE 104 MEQ/L (98-107); CREATININE 0.93 MG/DL (0.50-1.00); GLOMERULAR FILTRATION RATE 64 ML/MIN (>89); GLUCOSE,FASTING 87 MG/DL (74-99); MAGNESIUM 2.1 MG/DL (1.5-2.5); SODIUM (NA) 140 MEQ/L (136-145)
[2017-05-17 15:58] LABS: ALT (GPT) 42 U/L (10-53)
[2017-05-17 16:00] LABS: ALKALINE PHOSPHATASE 66 U/L (45-117); TOTAL BILIRUBIN ADULT 0.3 MG/DL (0.2-1.0); TOTAL PROTEIN 7.5 GM/DL (6.4-8.2)
== END ==
LOC: CLAB 15:05
PROVIDERS: ATTEND Internal Medicine Infectious Disease
DX: A31.8 Other mycobacterial infections (principal)
CPT/HCPCS: 36415; 80053; 80150; 83735; 85025

== ENCOUNTER → 2017-05-19 | Outpatient (CLI) | payer OTHER ==
[~2017-05-19] MED LIST changes: +[UNRECOGNIZED DRUG - OTHER] IV
--- NOTE | 2017-05-21 22:52 | HHI.PR ---
Addendum to Inpatient Note Additional Information Delayed entry Pt was seen on 05/20 She was seen prior to by her surgeon Dr Ashley who reportedly took significant amount of serosagius fluid off her R breast SHe has a painlaess lump in the breast that seems significantly smaller after the fluid was drained Pt cont to take biaxine, cefoxitine and amikacin After some problems with elevated amikacin levels the dose was readjusted Her labs are followed weekly and are stable, within nl limits except mildly decreased Hb On exam she is in NAD no nystagmus R breast with small non tender smooth lump in lower inner quadrant No redness, incision is well healed Fluid Gstain with GPC AFB stain neg A/P: M abscesses R breast infx 2/2 infected implant in a pt with ipsilateral cancer New issue: infected seroma vs treatment failure of NTM infx PCN allergy Plan; will call in clindamycin 300 mg PO qid x 10 days to cover for staph, strep , anaerobic gram + org (othe r option IV tygacyl ) - will discuss with the pt on Tuesday will consider MRI especially if AFB clx come positive She needs to undergo XRT because of aggressivemness of her cancer (weighing in pros and contras though risk of infection is increased with XRT, her survival can be affected by further postponing XRT) I plan to meet with the pt on Tuesday Christianne Calles MD May 21, 2017 22:52
== END ==
LOC: CLAB 08:23
PROVIDERS: ATTEND Plastic Surgery
DX: N64.89 Other specified disorders of breast (principal); N63.0 Unspecified lump in unspecified breast; C50.919 Malignant neoplasm of unspecified site of unspecified female breast
CPT/HCPCS: 87015; 87070; 87102; 87116; 87205; 87206; 88173; 88184; 88185; 88305

== ENCOUNTER → 2017-05-23 | Outpatient (CLI) | payer OTHER ==
[2017-05-23 09:31] LABS: AUTOMATED NEUTROPHIL # 3.2 TH/MM3 (1.8-7.7); BASOPHIL % 0.8 % (0.0-2.0); EOSINOPHIL # 0.2 TH/MM3 (0-0.4); EOSINOPHIL % 4.1 % (0.0-4.0); HEMATOCRIT 33.2 % (35.0-46.0); HEMOGLOBIN 11.4 GM/DL (11.6-15.3); LYMPH % 20.2 % (9.0-44.0); MEAN CELL VOLUME 88.1 FL (80.0-100.0); MEAN CORPUSCULAR HEMOGLOBIN 30.2 PG (27.0-34.0); MEAN CORPUSCULAR HGB CONC 34.3 % (32.0-36.0); MEAN PLATELET VOLUME 7.1 FL (7.0-11.0); MONO % 8.4 % (0.0-8.0); MONOCYTE # 0.4 TH/MM3 (0-0.9); NEUT % 66.5 % (16.0-70.0); PLATELET COUNT 281 TH/MM3 (150-450); RED BLOOD COUNT 3.77 MIL/MM3 (4.00-5.30); RED CELL DISTRIBUTION WIDTH 15.5 % (11.6-17.2); WHITE BLOOD COUNT 4.8 TH/MM3 (4.0-11.0)
[2017-05-23 10:02] LABS: ALBUMIN 3.5 GM/DL (3.4-5.0); AST (GOT) 16 U/L (15-37); BICARBONATE 25.3 MEQ/L (21.0-32.0); BLOOD UREA NITROGEN 9 MG/DL (7-18); CALCIUM 8.7 MG/DL (8.5-10.1); CHLORIDE 107 MEQ/L (98-107); CREATININE 0.74 MG/DL (0.50-1.00); GLOMERULAR FILTRATION RATE 83 ML/MIN (>89); SODIUM (NA) 139 MEQ/L (136-145)
[2017-05-23 10:04] LABS: GLUCOSE,FASTING 96 MG/DL (74-99)
[2017-05-23 10:10] LABS: ALKALINE PHOSPHATASE 64 U/L (45-117); ALT (GPT) 31 U/L (10-53); TOTAL BILIRUBIN ADULT 0.5 MG/DL (0.2-1.0); TOTAL PROTEIN 7.3 GM/DL (6.4-8.2)
== END ==
LOC: CLAB 08:32
PROVIDERS: ATTEND Internal Medicine Hematology & Oncology
DX: A31.8 Other mycobacterial infections (principal)
CPT/HCPCS: 36415; 80053; 80150; 83735; 85025

== ENCOUNTER 2017-05-25 16:26 | Inpatient (IN) | payer OTHER ==
[~2017-05-25] VITALS: Ht 170.2 cm; Wt 59.0 kg
[~2017-05-25 16:26] MED LIST changes: +DEXAMETHASONE SOD PHOS 4 MG/ML VIAL IV ONE; +LIDOCAINE HCL 1% PF 5 ML SYRINGE OTHER ONE; +ONDANSETRON HCL 4 MG/2 ML VIAL IV ONE; +PROPOFOL 200 MG/20 ML AMP IV ONE; +SUCCINYLCHOLINE CHLORIDE 200 MG/10 ML VIAL IV ONE; -[UNRECOGNIZED DRUG - OTHER] IV
[2017-05-25 16:31] VITALS: BP 189/80; PULSE 76; RESP 20; TEMP 98.1; O2SAT 100
[2017-05-25] MEDS ORDERED: SODIUM CHLORIDE 0.9% FLUSH 10 ML FLUSH IV FLUSH PRN ×2 (16:45→18:00)
[2017-05-25] MEDS ORDERED: [UNRECOGNIZED DRUG - OTHER] IV (16:51)
[2017-05-25] MEDS ORDERED: SODIUM CHLOR 0.9% 1000 ML INJ 1,000 ML IV ONE (17:00)
[2017-05-25] MEDS ORDERED: MORPHINE SULFATE 4 MG/ML INJ IV PUSH ONE (17:00)
--- NOTE | 2017-05-25 17:09 | PD ---
HPI Chief Complaint: Wound/Suture/Staple Re-Check Time Seen by Provider: 16:45 Travel History International Travel<30 days: No Contact w/Intl Traveler<30days: No Traveled to known affect area: No History of Present Illness HPI 52-year-old female presents to the emergency department with complaint of bleeding from her right breast after her right breast was opened up yesterday and drained and a biopsy was taken by Dr. Ashley. Patient went to wound care today and the bleeding worsened during the dressing change and bleeding has continued. Says the bleeding started last night and she has changed the dressing "a bunch" Of times. History of double mastectomy on December 13. Right breast implant was removed on March 30 secondary to infection. Denies anticoagulant therapy. Denies fever, vomiting, lightheadedness, dizziness, headache, chest pain, shortness of breath. Reports nausea without vomiting. Has not taken any medications or tried treatments to alleviate her symptoms. Symptoms aggravated with dressing change. Decreased with pressure bandage. Symptoms are moderate to severe in severity. No primary care provider. Infectious disease doctors Dr. Calles. Allergies to penicillin. Currently taking multiple antibiotics and has a PICC line in the left upper extremity. History of breast cancer. Denies other significant past medical history. Has no other medical complaints. No other modifying factors or associated signs and symptoms. PFSH Past Medical History Arthritis: Yes Asthma: No Autoimmune Disease: No Anxiety: No Depression: No Heart Rhythm Problems: No Cancer: Yes (BREAST CA) Cardiovascular Problems: No High Cholesterol: No Chemotherapy: Yes Chest Pain: No Congestive Heart Failure: No COPD: No Cerebrovascular Accident: No Diabetes: No Endocrine: No GERD: No Genitourinary: No Hepatitis: No Hiatal Hernia: No Immune Disorder: No Kidney Stones: No Musculoskeletal: Yes Neurologic: No Psychiatric: No Reproductive: No Respiratory: No Migraines: No Radiation Therapy: Yes Renal Failure: No Seizures: No Sickle Cell Disease: No Sleep Apnea: No Thyroid Disease: No Ulcer: No Tetanus Vaccination: < 5 Years Influenza Vaccination: Yes ?: Not Menopausal: Yes Past Surgical History Abdominal Surgery: Yes AICD: No Arteriovenous Shunt: No Body Medical Devices: LEFT BREAST IMPLANT Cardiac Surgery: No Ear Surgery: No Endocrine Surgery: No Eye Surgery: No Genitourinary Surgery: No Gynecologic Surgery: Yes (DOUBLE MASECTOMY WITH DORSAL FLAP) Insulin Pump: No Joint Replacement: No Oral Surgery: No Pacemaker: No Thoracic Surgery: No Social History Alcohol Use: No Tobacco Use: No Substance Use: No Allergies-Medications (Allergen,Severity, Reaction): Coded Allergies: penicillin G (Verified Allergy, Mild, Swelling, 05/25/17) Reported Meds & Prescriptions Reported Meds & Active Scripts Active Cefoxitin Inj (Cefoxitin Sodium/Dextrose) 2 Gm/50 Ml Bagp 2 Gm IV Q6H Tigecycline Inj (Tigecycline) 50 Mg Inj 50 Mg IV Q12HR Epinephrine Inj 1 Mg/Ml (1 Ml) Inj 0.3 Mg SQ ONCE PRN Give with any signs of respiratory distress. Solu-Cortef Inj (Hydrocortisone Sodium Succinate) 250 Mg/2 Ml Inj 250 Mg IV PUSH ONCE PRN Give over 30-60 seconds. Reported [amakasin] 900 Mg IV Clarithromycin 500 Mg Tab 500 Mg PO BID Hydrocodone-Acetaminophen 7.5-300 Mg Tab 1 Tab PO Q4H PRN Review of Systems Except as stated in HPI: all other systems reviewed are Neg Physical Exam Narrative GENERAL: Well-nourished, well-developed femur patient, in no acute distress SKIN: Warm and dry. Right breast with open wound with copious amounts of bright red drainage; gauze packing intact. Compression dressing applied. HEAD: Atraumatic. Normocephalic. EYES: Pupils equal and round. No scleral icterus. No injection or drainage. ENT: Mucosa pink and moist. Airway patent. NECK: Trachea midline. CARDIOVASCULAR: Regular rate. RESPIRATORY: No accessory muscle use. GASTROINTESTINAL: Flat. MUSCULOSKELETAL: No obvious deformities. No clubbing. No cyanosis. No edema. NEUROLOGICAL: Awake and alert. Oriented 3. No obvious cranial nerve deficits. Motor grossly within normal limits. Normal speech. PSYCHIATRIC: Appropriate mood and affect; insight and judgment normal. Data Data Last Documented VS Orders Orders Complete Blood Count With Diff (05/25/17 16:45) Comprehensive Metabolic Panel (05/25/17 16:45) Prothrombin Time / Inr (Pt) (05/25/17 16:45) Act Partial Throm Time (Ptt) (05/25/17 16:45) Iv Access Insert/Monitor (05/25/17 16:45) Sodium Chloride 0.9% Flush (Ns Flush) (05/25/17 16:45) Morphine Inj (Morphine Inj) (05/25/17 17:00) Sodium Chlor 0.9% 1000 Ml Inj (Ns 1000 M (05/25/17 17:00) Blood Product Administration (05/25/17 17:42) Sodium Chlor 0.9% 250 Ml Inj (Ns 250 Ml (05/25/17 17:45) Type And Screen (05/25/17 17:42) Admit Order (Ed Use Only) (05/25/17 17:45) Admit To Inpatient (05/25/17 ) Vital Signs (Adult) Q4H (05/25/17 17:53) Activity Oob With Assistance (05/25/17 17:53) Diet Npo (05/25/17 Dinner) Sodium Chloride 0.9% Flush (Ns Flush) (05/25/17 18:00) Sodium Chloride 0.9% Flush (Ns Flush) (05/25/17 21:00) Basic Metabolic Panel (Bmp) (05/26/17 06:00) Complete Blood Count With Diff (05/26/17 06:00) Naloxone Inj (Narcan Inj) (05/25/17 18:00) Inpatient Certification (05/25/17 ) Labs Laboratory Tests Test 05/25/17 17:13 White Blood Count 10.1 TH/MM3 Red Blood Count 3.94 MIL/MM3 Hemoglobin 12.0 GM/DL Hematocrit 34.8 % Mean Corpuscular Volume 88.3 FL Mean Corpuscular Hemoglobin 30.4 PG Mean Corpuscular Hemoglobin Concent 34.4 % Red Cell Distribution Width 15.1 % Platelet Count 303 TH/MM3 Mean Platelet Volume 7.4 FL Neutrophils (%) (Auto) 77.0 % Lymphocytes (%) (Auto) 14.0 % Monocytes (%) (Auto) 6.4 % Eosinophils (%) (Auto) 1.7 % Basophils (%) (Auto) 0.9 % Neutrophils # (Auto) 7.7 TH/MM3 Lymphocytes # (Auto) 1.4 TH/MM3 Monocytes # (Auto) 0.6 TH/MM3 Eosinophils # (Auto) 0.2 TH/MM3 Basophils # (Auto) 0.1 TH/MM3 CBC Comment DIFF FINAL Differential Comment Prothrombin Time 11.1 SEC Prothromb Time International Ratio 1.1 RATIO Activated Partial Thromboplast Time 32.6 SEC Blood Urea Nitrogen 20 MG/DL Creatinine 0.74 MG/DL Random Glucose 89 MG/DL Total Protein 7.3 GM/DL Albumin 3.4 GM/DL Calcium Level 8.6 MG/DL Alkaline Phosphatase 80 U/L Aspartate Amino Transf (AST/SGOT) 24 U/L Alanine Aminotransferase (ALT/SGPT) 36 U/L Total Bilirubin 0.4 MG/DL Sodium Level 137 MEQ/L Potassium Level 3.9 MEQ/L Chloride Level 104 MEQ/L Carbon Dioxide Level 24.4 MEQ/L Anion Gap 9 MEQ/L Estimat Glomerular Filtration Rate 83 ML/MIN MDM Medical Decision Making Medical Screen Exam Complete: Yes Emergency Medical Condition: Yes Medical Record Reviewed: Yes Differential Diagnosis Hemorrhaging wound, anemia from blood loss, medical clearance Narrative Course 52-year-old female with bleeding wound of the right breast. She has history of double mastectomy, December 13. Right breast implant infection of March [address] Ashley remove the drain and did a biopsy. She went to wound care today and has had increased bleeding since after dressing change. I took down the dressing and there is copious amounts of bleeding noted. Compression dressing applied. CBC, CMP, coags ordered. 1705: Call placed to Dr. Ashley. 1730: I spoke with Dr. Ashley and he is coming in to take the patient to the OR. 2 units of packed red blood cells ordered to the OR. 1745: Report given to JOSE Leonard for patient admission. 1825: Dr. Ashley at bedside and patient taken to the OR. Physician Communication Physician Communication Dr. Ashley, plastic surgeon JOSE Leonard Diagnosis Primary Impression: bleeding wound of right breast Admitting Information Admitting Physician Requests: Admit Barbie Darden MED CARE MANAGER May 25, 2017 17:09
[2017-05-25 17:10] VITALS: BP 117/92; PULSE 77; RESP 16; O2SAT 98
[2017-05-25 17:29] LABS: AUTOMATED NEUTROPHIL # 7.7 TH/MM3 (1.8-7.7); BASOPHIL # 0.1 TH/MM3 (0-0.2); BASOPHIL % 0.9 % (0.0-2.0); EOSINOPHIL # 0.2 TH/MM3 (0-0.4); EOSINOPHIL % 1.7 % (0.0-4.0); HEMATOCRIT 34.8 % (35.0-46.0); LYMPHOCYTE # 1.4 TH/MM3 (1.0-4.8); MEAN CELL VOLUME 88.3 FL (80.0-100.0); MEAN CORPUSCULAR HEMOGLOBIN 30.4 PG (27.0-34.0); MEAN CORPUSCULAR HGB CONC 34.4 % (32.0-36.0); MEAN PLATELET VOLUME 7.4 FL (7.0-11.0); MONO % 6.4 % (0.0-8.0); MONOCYTE # 0.6 TH/MM3 (0-0.9); PLATELET COUNT 303 TH/MM3 (150-450); RED BLOOD COUNT 3.94 MIL/MM3 (4.00-5.30); RED CELL DISTRIBUTION WIDTH 15.1 % (11.6-17.2); WHITE BLOOD COUNT 10.1 TH/MM3 (4.0-11.0)
[2017-05-25 17:40] LABS: INTERNATIONAL NORMALIZED RATIO 1.1 RATIO; PROTHROMBIN TIME - PATIENT 11.1 SEC (9.8-11.6)
[2017-05-25] MEDS ORDERED: SODIUM CHLOR 0.9% 250 ML INJ 250 ML IV ONE (17:45)
[2017-05-25] MEDS ORDERED: NALOXONE HCL 0.4 MG/ML AMP IV PUSH PRN (18:00)
[2017-05-25 18:03] LABS: ALBUMIN 3.4 GM/DL (3.4-5.0); ALKALINE PHOSPHATASE 80 U/L (45-117); ALT (GPT) 36 U/L (10-53); AST (GOT) 24 U/L (15-37); BICARBONATE 24.4 MEQ/L (21.0-32.0); BLOOD UREA NITROGEN 20 MG/DL (7-18); CALCIUM 8.6 MG/DL (8.5-10.1); CHLORIDE 104 MEQ/L (98-107); CREATININE 0.74 MG/DL (0.50-1.00); GLOMERULAR FILTRATION RATE 83 ML/MIN (>89); GLUCOSE,RANDOM 89 MG/DL (74-106); SODIUM (NA) 137 MEQ/L (136-145); TOTAL BILIRUBIN ADULT 0.4 MG/DL (0.2-1.0); TOTAL PROTEIN 7.3 GM/DL (6.4-8.2)
[2017-05-25] MEDS ORDERED: BUPIVACAINE/EPINEPHRINE 0.5% 50 ML VIAL ONE (18:09)
[2017-05-25] MEDS ORDERED: BACITRACIN TOP OINT 15 GM TUBE ONE (18:09)
[2017-05-25] MEDS ORDERED: ceFAZolin INJ 1,000 MG VIAL ONE (18:09)
[2017-05-25] MEDS ORDERED: GENTAMICIN SULFATE 80 MG/2 ML VIAL ONE (18:10)
--- NOTE | 2017-05-25 18:11 | HHI.HP ---
HPI Service [facility] Primary Care Physician Christianne Calles MD Admission Diagnosis Bleeding from R breast wound Diagnoses: Travel History International Travel<30 Days: No Contact w/Intl Traveler <30 Da: No Traveled to Known Affected Are: No History of Present Illness History from patient, ER hand pleater, and review of medical records. Patient stated that she wants to wound care clinic today where her wound packing from the right breast medication was supposed to be removed and dressed. However during the manipulation she had severe pain and all of a sudden blood would gush out She was then told to come to ER. at home as well drainage from wound through dressing, both pus and blood no fevers In the emergency room, upon examination by the ER PA, patient's wound was noted to be percussion out was advised tothe dressing was removed. Her case was discussed with plastic surgeon Dr. Ashley by the ER team and Dr. Ashley is going to take the patient to OR emergently tonight. dec 13, 2016 implant was placed on right and left - bilateral mastectomy same day on 03/30 implant out due to infection drain was placed Drain was out in a week had mycobacterium growing in cultures This was the reason why drain was removed. The implant was removed and left open the wound with packing per ID recommendations. I also discussed with infectious disease specialist over the phone. Patient had mucus and levels done as outpatient on May 23, 2017. Level was 26. Dr. Calles advise me that this level is wrong as patient took the blood work at the wrong time mean and it doesn't reflect the trough levels. For today as well patient already took her amikacin dose in the morning. Therefore the labs cannot be checked yet. Dr. Calles will check amikacin level tomorrow morning and decide on further dosing amikacin. Her usual amikacin dose is 1 g IV daily on Tuesday. On review of system, patient denies any other symptoms apart from mild palpitations in the past one week. Review of Systems Except as stated in HPI: all other systems reviewed are Neg Past Family Social History Past Medical History Breast cancer. Status post bilateral mastectomy and bilateral implant placement on December 13, 2016. Status post chemotherapy and radiation therapy. Last chemotherapy was on September 16, 2016. 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 Removal of right breast implant on March 30, 2017 due to infection with Mycobacterium. Removal of SHIRA drain from right breast implant area in a week. Denies any other medical conditions apart from the breast cancer. Past Surgical History bilateral mastectomy and implants right femur left patellar explorator abdomen breast augmentation rhinoplasty Allergies: Coded Allergies: penicillin G (Verified Allergy, Mild, Swelling, 05/25/17) Family History nothing Social History none Physical Exam Vital Signs Vital Signs Date Time Temp Pulse Resp B/P (MAP) Pulse Ox O2 Delivery O2 Flow Rate FiO2 05/25/17 16:31 98.1 76 20 189/80 (116) 100 Physical Exam GENERAL: This is a well-nourished, well-developed patient, in no apparent distress. HEAD: Atraumatic. Normocephalic. No temporal or scalp tenderness. EYES: . No scleral icterus. No injection or drainage. ENT: Nose without bleeding, purulent drainage or septal hematoma. Airway patent. NECK: Trachea midline. No JVD Supple, nontender, no meningeal signs. CARDIOVASCULAR: Regular rate and rhythm without murmurs, gallops, or rubs. RESPIRATORY: Clear to auscultation. Breath sounds equal bilaterally. No wheezes , rales, or rhonchi. GASTROINTESTINAL: Abdomen soft, non-tender, nondistended. No guarding. MUSCULOSKELETAL: Extremities without clubbing, cyanosis, or edema. . No calf tenderness. NEUROLOGICAL: Awake and alert. Motor and sensory grossly within normal limits. Normal speech. Laboratory Laboratory Tests Test 05/25/17 17:13 White Blood Count 10.1 Red Blood Count 3.94 Hemoglobin 12.0 Hematocrit 34.8 Mean Corpuscular Volume 88.3 Mean Corpuscular Hemoglobin 30.4 Mean Corpuscular Hemoglobin Concent 34.4 Red Cell Distribution Width 15.1 Platelet Count 303 Mean Platelet Volume 7.4 Neutrophils (%) (Auto) 77.0 Lymphocytes (%) (Auto) 14.0 Monocytes (%) (Auto) 6.4 Eosinophils (%) (Auto) 1.7 Basophils (%) (Auto) 0.9 Neutrophils # (Auto) 7.7 Lymphocytes # (Auto) 1.4 Monocytes # (Auto) 0.6 Eosinophils # (Auto) 0.2 Basophils # (Auto) 0.1 CBC Comment DIFF FINAL Differential Comment Prothrombin Time 11.1 Prothromb Time International Ratio 1.1 Activated Partial Thromboplast Time 32.6 Result Diagram: 05/25/17 8770 Caprini VTE Risk Assessment Caprini VTE Risk Assessment: Mod/High Risk (score >= 2) Caprini Risk Assessment Model Point Value = 1 Point Value = 2 Point Value = 3 Point Value = 5 Age 41-60 Minor surgery BMI > 25 kg/m2 Swollen legs Varicose veins or History of unexplained or recurrent spontaneous Oral contraceptives or hormone replacement Sepsis (< 1 month) Serious lung disease, including pneumonia (< 1 month) Abnormal pulmonary function Acute myocardial infarction Congestive heart failure (< 1 month) History of inflammatory bowel disease Medical patient at bed rest Age 61-74 Arthroscopic surgery Major open surgery (> 45 min) Laparoscopic surgery (> 45 min) Malignancy Confined to bed (> 72 hours) Immobilizing plaster cast Central venous access Age >= 75 History of VTE Family history of VTE Factor V Leiden Prothrombin 32799H Lupus anticoagulant Anticardiolipin antibodies Elevated serum homocysteine Heparin-induced thrombocytopenia Other congenital or acquired thrombophilia Stroke (< 1 month) Elective arthroplasty Hip, pelvis, or leg fracture Acute spinal cord injury (< 1 month) Prophylaxis Regimen Total Risk Factor Score Risk Level Prophylaxis Regimen 0-1 Low Early ambulation 2 Moderate Order ONE of the following: *Sequential Compression Device (SCD) *Heparin 5000 units SQ BID 3-4 Higher Order ONE of the following medications: *Heparin 5000 units SQ TID *Enoxaparin/Lovenox 40 mg SQ daily (WT < 150 kg, CrCl > 30 mL/min) *Enoxaparin/Lovenox 30 mg SQ daily (WT < 150 kg, CrCl > 10-29 mL/min) *Enoxaparin/Lovenox 30 mg SQ BID (WT < 150 kg, CrCl > 30 mL/min) AND/OR *Sequential Compression Device (SCD) 5 or more Highest Order ONE of the following medications: *Heparin 5000 units SQ TID (Preferred with Epidurals) *Enoxaparin/Lovenox 40 mg SQ daily (WT < 150 kg, CrCl > 30 mL/min) *Enoxaparin/Lovenox 30 mg SQ daily (WT < 150 kg, CrCl > 10-29 mL/min) *Enoxaparin/Lovenox 30 mg SQ BID (WT < 150 kg, CrCl > 30 mL/min) AND *Sequential Compression Device (SCD) Assessment and Plan Assessment and Plan Impression: Postop bleeding from Right breast implants area 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 Has been on outpatient antibiotics. Breast cancer. Status post bilateral mastectomy and bilateral implant placement on December 13, 2016. Status post chemotherapy and radiation therapy. Last chemotherapy was on September 16, 2016. 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 Removal of right breast implant on March 30, 2017 due to infection with Mycobacterium. Removal of SHIRA drain from right breast implant area in a week. Plan: Patient will be going to OR emergently with her plastic surgeon to contain this bleeding. Her outpatient antibiotics regimen reviewed with her infectious disease specialist Dr. Calles. Advised to continue her antibiotics at home dose. Amikacin will be the exception. Check amikacin level in the morning by infectious disease. Previous amikacin level done on May 23, 2017 is wrong as patient to the blood at the wrong time. Patient took her last dose of amikacin this morning. Usually she will take on Tuesday, Tuesday, Tuesday. Dr. Calles will further dose for amikacin based on the falls. Her other antibiotics tigecycline, clarithromycin,cefoxitin will be continued at home dose. DVT prophylaxis with SCD. Discussed Condition With Patient, ER hand pleater, nursing staff Physician Certification 2 Midnight Certification Type: Admission for Inpatient Services Order for Inpatient Services The services are ordered in accordance with Medicare regulations or non- Medicare payer requirements, as applicable. In the case of services not specified as inpatient-only, they are appropriately provided as inpatient services in accordance with the 2-midnight benchmark. Estimated LOS (days): 2 days is the estimated time the patient will need to remain in the hospital, assuming treatment plan goals are met and no additional complications. Post-Hospital Plan: Home Loan Lara MD May 25, 2017 18:11
[2017-05-25] MEDS: SODIUM CHLORIDE IV SCH ×4 (18:45→21:00)
[2017-05-25] MEDS: CEFOXITIN IV SCH ×2 (18:45)
[2017-05-25] MEDS ORDERED: MUPIROCIN 2% OINT 22 GM TUBE ONE (19:26)
[2017-05-25] MEDS ORDERED: *MEPERIDINE 25 MG INJ VIAL PERIprocedural Use ONLY ONE (19:50)
[2017-05-25] MEDS ORDERED: *morphine SULFATE 8 MG/ML PERIprocedure ONLY ONE (20:27)
[2017-05-25] MEDS ORDERED: *morphine SULFATE 4 MG/ML PERIprocedure ONLY ONE (20:58)
[2017-05-25] MEDS: DEXTROSE 5%-LACTATED RING INJ 1,000 ML IV SCH (21:00)
[2017-05-25] MEDS ORDERED: TIGECYCLINE 50 MG IV SCH (21:00)
[2017-05-25] MEDS: TIGECYCLINE IV SCH ×2 (21:00)
[2017-05-25] MEDS: SODIUM CHLORIDE 0.9% FLUSH 10 ML FLUSH IV FLUSH SCH (21:00)
[2017-05-25] MEDS ORDERED: MORPHINE SULFATE 2 MG/ML SYRINGE IV PUSH PRN (21:15)
[2017-05-25] MEDS ORDERED: DO NOT ADM ANY ANTICOAGULANT DRUGS PRN (21:15)
--- NOTE | 2017-05-25 21:23 | MP ---
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 OPERATION PERFORMED: Evacuation of hematoma, right breast, excision of chronic granulation tissue and establishment of hemostasis and packing of wound. SURGEON: Darion Ashley MD. ANESTHESIA: General endotracheal. ESTIMATED BLOOD LOSS: 200 mL. COMPLICATIONS: None. PATHOLOGY: Excision of the infected capsule of the entire breast. DRAINS: None. COMPLICATIONS: None. DESCRIPTION OF PROCEDURE: The patient was seen in the Emergency Room. Her history goes back to almost a year ago when she had bilateral breast reconstruction. She did well for a couple of months, but then she developed continuous drainage from the right breast and she developed Mycobacterium abscesses infection. The implant was removed and the capsule was excised. She continued to have problems on IV antibiotics. She developed an abscess cavity 10 days ago. This was aspirated and drained. It had a lot of neutrophils in it and it was felt that this needed to be I and D'd. This was I and D'd yesterday and packed. There was no bleeding at that time. She went to wound care this afternoon and they tried to unpack the wound and she started bleeding copious amounts. The patient's wound was packed and they called and we had her admitted to the hospitalist and had her scheduled for the OR for evacuation of hematoma, excision of the chronic granulation tissue and packing of the wound. The patient was seen in the emergency room and transferred to the OR and placed under general endotracheal anesthesia with a crash intubation. The packing was removed from the wound. There was a large amount of blood that was coagulated. No pumping blood vessels were identified. The wounds were all cleaned with Betadine solution. The cavity was opened with an incision vertically down through the middle of the previous breast cavity. Then, splitting laterally to allow the pocket to be opened completely so there was no pocket, using a cutting cautery, the scar capsule granulomatous tissue was all removed 100% as much as possible and sent to pathology and microbiology for all studies. Meticulous hemostasis was obtained with electrocautery. The wound was then packed with Adaptic impregnated with Bactroban ointment over the entire wound and then Betadine and saline soaked sponge were applied and a compression garment. ____ dressing was applied with a bra. The patient tolerated procedure extremely well, was awakened, extubated and transferred to the stretcher and sent to recovery in satisfactory condition. MD MAN Psoadas//rh , 08:01 PM , 08:26 PM
[2017-05-25 21:37] VITALS: BP 127/65; PULSE 71; RESP 16; TEMP 97.5; O2SAT 97
[2017-05-25 21:44] LABS: HEMATOCRIT 30.9 % (35.0-46.0); HEMOGLOBIN 10.4 GM/DL (11.6-15.3)
[2017-05-25] MEDS ORDERED: NAPROXEN 500 MG TAB PO SCH (22:00)
[2017-05-25] MEDS: MORPHINE SULFATE 8 MG/ML INJ IV PUSH PRN (22:21)
[2017-05-25] MEDS: CLARITHROMYCIN 500 MG TAB PO SCH (22:23)
[2017-05-26] VITALS (7 sets, daily range): BP systolic 98–129; BP diastolic 59–72; PULSE 72–93; RESP 16–20; TEMP 97–99.2; O2SAT 94–100
[2017-05-26] MEDS: MORPHINE SULFATE 8 MG/ML INJ IV PUSH PRN ×4 (00:36→09:55)
[2017-05-26] MEDS: ACETAMINOPHEN 1000 MG/100 ML 100 ML IV SCH ×2 (00:36→06:00)
[2017-05-26] MEDS: CEFOXITIN IV SCH ×10 (00:37→22:53)
[2017-05-26] MEDS: SODIUM CHLORIDE IV SCH ×14 (00:37→22:53)
[2017-05-26] MEDS: DEXTROSE 5%-LACTATED RING INJ 1,000 ML IV SCH ×2 (05:00→11:54)
[2017-05-26 06:51] LABS: AUTOMATED NEUTROPHIL # 4.4 TH/MM3 (1.8-7.7); BASOPHIL % 0.1 % (0.0-2.0); HEMOGLOBIN 9.9 GM/DL (11.6-15.3); LYMPH % 8.4 % (9.0-44.0); LYMPHOCYTE # 0.4 TH/MM3 (1.0-4.8); MEAN CELL VOLUME 89.2 FL (80.0-100.0); MEAN CORPUSCULAR HEMOGLOBIN 30.6 PG (27.0-34.0); MEAN CORPUSCULAR HGB CONC 34.3 % (32.0-36.0); MEAN PLATELET VOLUME 8.1 FL (7.0-11.0); MONO % 2.8 % (0.0-8.0); MONOCYTE # 0.1 TH/MM3 (0-0.9); NEUT % 88.7 % (16.0-70.0); PLATELET COUNT 244 TH/MM3 (150-450); RED BLOOD COUNT 3.25 MIL/MM3 (4.00-5.30); RED CELL DISTRIBUTION WIDTH 15.3 % (11.6-17.2); WHITE BLOOD COUNT 4.9 TH/MM3 (4.0-11.0)
[2017-05-26] MEDS ORDERED: ALTEPLASE RECOMBINANT 2 MG VIAL INTRACATH SCH (07:15)
[2017-05-26] MEDS ORDERED: PROMETHAZINE HCL 25 MG TAB PO PRN (07:15)
[2017-05-26 07:16] LABS: BICARBONATE 25.8 MEQ/L (21.0-32.0); CALCIUM 8.4 MG/DL (8.5-10.1); CREATININE 0.76 MG/DL (0.50-1.00)
[2017-05-26] MEDS: ONDANSETRON HCL 4 MG/2 ML VIAL IV PUSH PRN ×3 (07:59→21:15)
[2017-05-26] MEDS: SODIUM CHLORIDE 0.9% FLUSH 10 ML FLUSH IV FLUSH SCH ×2 (08:52→21:07)
[2017-05-26] MEDS: TIGECYCLINE IV SCH ×4 (09:27→21:06)
[2017-05-26] MEDS: CLARITHROMYCIN 500 MG TAB PO SCH ×2 (09:55→21:07)
--- NOTE | 2017-05-26 10:47 | PD.WCN.NOT ---
Wound Consult Description: Received consult for VAC placement of wound VAC dressing to R breast from Doctor Darion Ashley plastic surgery Communicated with: SEAN Oates Recommendation: Please change wound VAC dressing on Sunday 05/28 if discharged to [facility]. If not discharged and patient is here through weekend. Inpatinet wound care will change on Tuesday 05/30. Then change Tuesday -Tuesday and Tuesday.With settings at 125 mm/hg low continuous suction Please cover any exposed tendon, muscle, bone or facia with oil emulsion gauze (adaptic) before applying black granufoam. Additional Information: Please see NPTW Neg Pressure Wound Therapy Wound Location Wound Location: R breast Wound Description Length: 9 cm Width: 16cm Depth: 2.4 Underminin to 4 o'clock with deepest depth at 12 o'clock measuring ~2cm Wound bed appearance: 40% muscle tissue , ~20% bone, ~30% adipose and ~10% facia. Wound has minimal sero-sanguinous drainage without odor. Periwound appearance: Unremarkable Settings Suction: 125 mmHg, Continuous Intensity: Low Other Information: Mushroomed Foam type: Black Number of pieces: 2 Additonal Information Patient seen on for wound VAC dressing application to R breast as ordered by Doctor Darion Ashley. Wound VAC dressing changed with the assistance Doctor Zuri Adames LPN, and data analyst report writer. Removed rolled gauze ABD and oil emulsion gauze, to reveal wound to R breast. Breast wound is s/p evacuation of hematoma. Wound measurements and description noted above. Wound was cleansed with normal saline and patted dry. Applied oil emulsion gauze to over exposed facia, muscle and bone. Skin barrier film spray was applied to periwound.Applied stoma paste to creases and skin folds in periwound to seal wound VAC dressing. Black granufoam was then cut into 1 long strip and applied in a spiral fashion packed in wound bed loosely to reach undermined areas. Additionally, 1 small piece of black granufoam was then applied to fill entire wound bed. Covered with VAC drape to secure. Quarter sized hole was cut in drape to expose granufoam. Mushroom cap of granufoam, was applied over exposed granufoam.Sensi Trac pad was secured to Mushroom cap. Wound VAC was then started with suctioning at 125 mm/hg low continuous suction. Wound VAC is suctioning without leaks. Bed was lowered to safe height before data analyst report writer left patient's room. Nicki Wheatley [facility] May 26, 2017 10:47
--- NOTE | 2017-05-26 11:06 | PD.WOU.PN ---
Patient Intake Chief Complaint Right breast postsurgical wound Consult Requested by Dr. Ashley Reason for Consult Wound vac placement by the wound care nurse. Primary Care Physician Christianne Calles MD History of Present Illness Wound care rounds today with 52-year-old female who has a history of bilateral mastectomies and breast reconstruction with latissimus dorsi myocutaneous flap presented to wound care center yesterday status post surgical debridement of her right breast at Dr. Darion Ashley office on 05/24/17. During intake yesterday at the wound care center, while her wet-to-dry dressing was being removed, she started bleeding and complained of pain on removal of the dressing. Patient was sent to the ED for hemostasis to be achieved as well as further evaluation and treatment and was seen by Dr. Ashley who took her to the OR for further evaluation and treatment. Today here with the wound care team for application of wound VAC. Present is Nicki Wheatley RN, [facility] and Suki Prado LPN from the outpatient woundcare center and myself. Patient is in good spirits today and is surrounded by family which includes her stepmother, father , significant other Yves and her adopted daughter. She reports that she has 1 son who is 22 years old with a 4-month-old granddaughter. She is employed at [employer] and reports that she would like to go back to work as she stopped working on 05/24/2017 secondary to having surgical debridement done by Dr. Ashley. 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 She reports that she lives with her mother who is also her caregiver and today her pain is well controlled. Patient also been treated for Mycobacterium abscessus and is being followed by ID. She has no other acute concerns at this time Coded Allergies: penicillin G (Verified Allergy, Mild, Swelling, 05/25/17) Preferred Language to Discuss: Mohawk Barriers to Learning: None Teaching Method: Discussion Vital Signs Date Time Temp Pulse Resp B/P (MAP) Pulse Ox O2 Delivery O2 Flow Rate FiO2 05/26/17 08:00 97.6 85 19 104/69 (81) 96 05/26/17 07:58 99 21 05/26/17 04:00 97.0 76 16 129/68 (88) 99 05/26/17 03:05 20 05/26/17 00:00 97.9 72 16 125/72 (89) 94 05/25/17 21:37 97.5 71 16 127/65 (85) 97 05/25/17 21:10 97.7 77 24 127/58 (81) 97 Room Air 05/25/17 21:00 82 21 124/58 (80) 99 Room Air 05/25/17 20:45 75 16 131/59 (83) 100 Room Air 05/25/17 20:30 79 12 131/61 (84) 100 Nasal Cannula 2 05/25/17 20:15 77 20 132/59 (83) 100 Nasal Cannula 3 05/25/17 20:00 75 20 152/69 (96) 100 Nasal Cannula 3 05/25/17 19:45 98.1 91 16 142/63 (89) 100 Nasal Cannula 3 05/25/17 17:10 77 16 117/92 (100) 98 Room Air 05/25/17 16:31 98.1 76 20 189/80 (116) 100 Pain scale used: 0-10 numeric scale Pain score: 0 Past, Family & Social History Past Medical History History: : 3 Live Births: 1 Cancer/Hematology: REPORTS HX OF: Breast cancer Psychiatric: REPORTS HX OF: Anxiety Additional Medical History mycobacterium abscessus Past Surgical History Gynecologic: 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 Substance Use Substance Use: Denies use Safety Vehicle Safety: Seatbelt Use: Always Review of Systems Constitutional: COMPLAINS OF: Recent weight change Integumentary: COMPLAINS OF: Hx masses/lumps, Slow to heal after cuts Psychiatric: COMPLAINS OF: Depression/anxiety Wound Assessment Currently sitting up in bed Wound Information - Wound One 05/26/2017: Wound dimensions this week are 9 cm x 16 cm x 2.4 cm with undermining from 9:00 to 4:00 with deepest de approximately 2 cm. Patient educated about the wound VAC and this was subsequently placed by Nicki Wheatley RN [facility] successfully. Patient tolerated this well. Wound Location: Right breast Wound Type: Post-op Classification: FT- full thickness Wound Length: 9cm Wound Width: 16cm Wound Depth: 2.4cm Undermining @ O'clock: 9 oclock-4 oclock with deepest depth approximately 2cm Dressing Notes: Wound vac Physical Exam General appearance: comfortable Nutritional status: normal Orientation: alert and oriented x3 Skin: FINDINGS: normal color, lesions (See wound assessment notes) Hair: normal Head: normocephalic/atraumatic Chest appearance: pectus deformity Breasts: FINDINGS: asymmetry (right breast s/p surgical debridement , left breast reconstructed with tattoo) Respiratory effort: FINDINGS: normal Auscultation: FINDINGS: normal Percussion: FINDINGS: normal Tactile fremitus: absent Rhythm: regular Heart sounds: NORMAL: S1, S2 Abdomen: FINDINGS: normal appearance Bowel sounds: normal Abdominal palpation: Left upper quadrant: nontender Right upper quadrant: nontender Left lower quadrant: nontender Right lower quadrant: nontender Periumbilical: nontender Epigastric: nontender Suprapubic: nontender CVA tenderness: none Mental status: grossly normal Affect: normal Judgment: normal Assessment/Plan Problem List: (1) Breast infection in female Status: Acute Plan: Currently on antibiotics and under the care of ID. Apparently medication adjustments have been made and she is able to tolerate the medication at this time. She will continue to follow-up with Dr. Calles. (2) Open wound of right breast with complication Status: Chronic Plan: Patient status post right breast mastectomy with reconstruction and removal of implants and infection with mycobacterium abscessus. Patient had surgical debridement on 05/24 and 05/25. Wound vac placed and patient to follow up with woundcare center as well as home health ordered. Patient tolerated wound VAC well. Discussed at length her care and the possibility of hyperbaric therapy pending her pathology report. Patient voiced understanding. Of note, patient does not have a PCP. Given names of prospective PCPs and encourage patient to establish with one as soon as possible. Patient voiced understanding. (3) History of breast cancer Status: Chronic Plan: Patient status post bilateral mastectomy with chemotherapy. Had surgical debridement done yesterday and biopsies were taken and will await results and treat accordingly. (4) S/P mastectomy, bilateral Status: Chronic Plan: Patient had successful bilateral mastectomies, as well as reconstructive surgery last year. However due to infection of the right breast, implants were removed and in this week, she has had to surgical debridements. Today wound VAC placed and patient tolerated this well. Problem Qualifiers (1) Open wound of right breast with complication: Qualified Codes: S21.001A - Unspecified open wound of right breast, initial encounter Awilda Adames MD May 26, 2017 11:06
--- NOTE | 2017-05-26 11:11 | PD.ID.CON ---
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 s/p chemo and incomplete XRT (4 treatments) developped M abscessus infeetion of sm breast soon after reconstruction with implant She presented with recurrent fluid collections in the breast Her cultureeventually grew out M abscessus She underwent I+D with removal of the implant on 03/31 She has been on triple abx therapy (with biaxin, amikacin, cefoxitin, tygacyl, zyvox) and eventually we got sensitivity report form [facility] that confirmeed that her isolatge was S to all of them, except zyvox (I) She also developped symptomatic anemia requiring Xnsfusion while on zyvox SHe has issues with Tygacyl (nausea, vomiting and associated weight loss) that required dicontinuation, buit the rst abx she seems to tolartate better However while on treatment she developped another fluid collection in the breast that was drained by Dr Ashley CYtology cw abscess, no malignat cells were ID'd Her Gstain was positive for GPC , but cultuere was finalysed as sterile AFB stain neg as well SShe quickly reaccumulate fluid SHe underwent debridement with Dr Ashley (in office) on Tuesday and on developped bleeding in wound care center and had to be admitted Dr Ashley took her to OR last night , devrideed infected tissue, stopped the bleeding and put the VAC on SHe is o/w afebrile and eats OK this am after her N/V resolved (emesis x 3) She was supposed to re-start radiation this week, but it was cancelled 2/2 ongoing infection requiring surgery Review of Systems Gastrointestinal: COMPLAINS OF: Nausea, Vomiting Except as stated in HPI: all other systems reviewed are Neg Past Family Social History Allergies: Coded Allergies: penicillin G (Verified Allergy, Mild, Swelling, 05/25/17) Past Medical History 51 yo female with triple negative breast ca of R breast sp b/l mastectomy with reconstruction diagnosed with M abscessus infection of the R breast Sp removal of infected prosthesis today by Dr Ashley - op report noted ; copious amounts of abnormal granulation tissue Pt has her PICC placed No new c/o since yday Review of Systems Ears, nose, mouth, throat: COMPLAINS OF: Hearing loss Except as stated in HPI: all other systems reviewed are Neg Past Family Social History Allergies: Coded Allergies: penicillin G (Verified Allergy, Mild, Swelling, 03/30/17) Past Medical History breast ca Past Surgical History b/l mastectomy with reconstruction Nov 2016 Active Ordered Medications Medications where reviewed in EMR Antibiotics Include: none Family History NC Social History No Tobacco. No ETOH. No Illicit Drugs. Physical Exam Vital Signs Vital Signs Date Time Temp Pulse Resp B/P (MAP) Pulse Ox O2 Delivery O2 Flow Rate FiO2 05/26/17 08:00 97.6 85 19 104/69 (81) 96 05/26/17 07:58 99 21 05/26/17 04:00 97.0 76 16 129/68 (88) 99 05/26/17 03:05 20 05/26/17 00:00 97.9 72 16 125/72 (89) 94 05/25/17 21:37 97.5 71 16 127/65 (85) 97 05/25/17 21:10 97.7 77 24 127/58 (81) 97 Room Air 05/25/17 21:00 82 21 124/58 (80) 99 Room Air 05/25/17 20:45 75 16 131/59 (83) 100 Room Air 05/25/17 20:30 79 12 131/61 (84) 100 Nasal Cannula 2 05/25/17 20:15 77 20 132/59 (83) 100 Nasal Cannula 3 05/25/17 20:00 75 20 152/69 (96) 100 Nasal Cannula 3 05/25/17 19:45 98.1 91 16 142/63 (89) 100 Nasal Cannula 3 05/25/17 17:10 77 16 117/92 (100) 98 Room Air 05/25/17 16:31 98.1 76 20 189/80 (116) 100 Physical Exam CONSTITUTIONAL/GENERAL: This is an adequately nourished patient, in no apparent distress. TUBES/LINES/DRAINS: PICC in place LUE - site OK SKIN: No jaundice, rashes, or lesions. Skin temperature appropriate. Not diaphoretic. STATUS LOCALIS: R BREAST with large defect and VAC in place with serosang d/c No edema or erythema aorund VAC HEAD: Atraumatic. Normocephalic. EYES: Pupils equal and round and reactive. Extraocular motions intact. No scleral icterus. No injection or drainage. Fundi not examined. ENT: Hearing grossly normal. Nose without bleeding or purulent drainage. Oral mucosae moist CARDIOVASCULAR: Regular rate and rhythm without murmurs, gallops, or rubs. No JVD. Peripheral pulses symmetric. RESPIRATORY/CHEST: Symmetric, unlabored respirations. Clear to auscultation. Breath sounds equal bilaterally. No wheezes, rales, or rhonchi. GASTROINTESTINAL: Abdomen soft, non-tender, nondistended. No hepato-splenomegaly , or palpable masses. MUSCULOSKELETAL: Extremities without clubbing, cyanosis, or edema. NEUROLOGICAL: Awake and alert. Motor and sensory grossly within normal limits. Follows commands. Cognitively sharp. Moves all extremities. PSYCHIATRIC: No obvious anxiety/depression. no apparent hallucinations or other psychotic thought process. Laboratory Laboratory Tests Test 05/25/17 17:13 05/25/17 20:25 05/26/17 06:00 White Blood Count 10.1 4.9 Red Blood Count 3.94 3.25 Hemoglobin 12.0 10.4 9.9 Hematocrit 34.8 30.9 29.0 Mean Corpuscular Volume 88.3 89.2 Mean Corpuscular Hemoglobin 30.4 30.6 Mean Corpuscular Hemoglobin Concent 34.4 34.3 Red Cell Distribution Width 15.1 15.3 Platelet Count 303 244 Mean Platelet Volume 7.4 8.1 Neutrophils (%) (Auto) 77.0 88.7 Lymphocytes (%) (Auto) 14.0 8.4 Monocytes (%) (Auto) 6.4 2.8 Eosinophils (%) (Auto) 1.7 0.0 Basophils (%) (Auto) 0.9 0.1 Neutrophils # (Auto) 7.7 4.4 Lymphocytes # (Auto) 1.4 0.4 Monocytes # (Auto) 0.6 0.1 Eosinophils # (Auto) 0.2 0.0 Basophils # (Auto) 0.1 0.0 CBC Comment DIFF FINAL DIFF FINAL Differential Comment Prothrombin Time 11.1 Prothromb Time International Ratio 1.1 Activated Partial Thromboplast Time 32.6 Blood Urea Nitrogen 20 21 Creatinine 0.74 0.76 Random Glucose 89 207 Total Protein 7.3 Albumin 3.4 Calcium Level 8.6 8.4 Alkaline Phosphatase 80 Aspartate Amino Transf (AST/SGOT) 24 Alanine Aminotransferase (ALT/SGPT) 36 Total Bilirubin 0.4 Sodium Level 137 139 Potassium Level 3.9 3.8 Chloride Level 104 107 Carbon Dioxide Level 24.4 25.8 Anion Gap 9 6 Estimat Glomerular Filtration Rate 83 81 Date/Time Source Procedure Growth Status 05/25/17 19:20 Wound Breast Fungal Smear Pending Received 05/25/17 19:20 Wound Breast Fungal Culture Pending Received Result Diagram: 05/26/17 0605/26/17 06 Assessment and Plan Assessment and Plan M abscessus R breast infection aw foreign be sp removal of implant of R breast clinical treatment failure despite of triple abx tx; sp debridement of all infected tissue GPC on Gstain? clin significance Breast ca - completed chememo; can not undergoing XRT 2/2 ongoing uncontrolled infection and open wound undergoing w/u by Dr Casey PLAN: cont VAC cont abx : BIaxine, cefoxotine, amikacin (3 x /wk) post pone XRT will f/u clx, path Discussed Condition With case mngr Carmela Carver, Dontae, Vivien, Marcello pt, her @ b/s all questions answered to full extent Christianne Calles MD May 26, 2017 11:11
--- NOTE | 2017-05-26 11:22 | HHI.FF ---
Infusion Therapy Location of Infusion Therapy: Home Health Care IV Infusion Order Patient Information Patient Weight 59 kg Diagnosis: Coded Allergies: penicillin G (Verified Allergy, Mild, Swelling, 05/25/17) Administer Medication cefoxitine 2 gm IV q 6 hrs Start Treatment: May 26, 2017 Stop Treatment: Aug 25, 2017 Administer Medication Amikacin 1200 mg IV every Mon, We and Fri Start Treatment: May 26, 2017 Stop Treatment: Aug 25, 2017 Administer Medication Tigecycline 50 mg IV q 12 hours Start Treatment: May 26, 2017 Stop Treatment: Aug 25, 2017 Additional Information Venous access: PICC Line Additional Instructions [x] Peripheral flush and dressing changes per protocol [x] Implanted port 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 [] May leave port accessed during therapy. [] May leave peripheral site accessed for duration of therapy. [x] If patient has SOB or respiratory distress, check oxygen saturation. If less than 90% or clinical signs of respiratory distress, administer oxygen at 2 L/min. via nasal cannula and notify physician. [x] Anaphylaxis/Reaction orders: * Stop infusion. * Keep IV line open with saline flush. * Notify physician. * Monitor vital signs every 15 minutes until symptoms resolve. * Check Oxygen saturation; Oxygen at 2 L/min. via nasal cannula if less than 90% or clinical signs of respiratory distress. * Administer diphenhydramine (Benadryl) 25 mg IV STAT, (unless patient has received as pre-med). May repeat once, if necessary. * Solu-Cortef 250 mg IVP over 30-60 seconds, use 100 mg vials for each dissolution. * Epinephrine (1mg/1 ml) 0.3 mg subcutaneously or IVP now with any signs of respiratory distress. * Check with physician for new additional pre-med orders if patient is re- challenged or re-treated. [x] May remove PICC line when treatment complete, after confirming with Physician. [x] If the patient is admitted to the hospital, the ED, or transferred via EV[facility] , complete transfer form including medication reconciliation order sheet. Laboratory Tests Weekly Labs: Amikacin Level (trough ), CBC w/diff, CMP, Serum Magnesium Levels Christianne Calles MD May 26, 2017 11:22
--- NOTE | 2017-05-26 11:25 | HHI.FF ---
Face to Face Verification Diagnosis: (1) Breast infection in female (2) Anemia Home Health Nursing Order: Medical education Signs/symptoms of disease process Medication education-adverse effect Wound care and dressing changes (Wound VAC dressing change twice a week Tuesday and 125 mmHg low continuous suction) Nursing assessment with vital signs IV medication administration I have seen patient Margot Lorenzana on 05/26/17. My clinical findings support the need for the requested home health care services because: Deconditioned w/ increased weakness I certify that my clinical findings support that this patient is homebound because: Unsafe to leave home unassisted Drake Armendariz MD May 26, 2017 11:25
[2017-05-26] MEDS: ACETAMINOPHEN 500 MG CPLT PO SCH ×3 (11:57→22:52)
--- NOTE | 2017-05-26 14:04 | HHI.PR ---
Subjective Remarks Follow-up postop bleeding and infection involving the right breast. States pain is under control. Seen with family. Discussed with RN and infectious disease plan for discharge tomorrow patient advised to follow-up with PCP Objective Vitals Vital Signs Date Time Temp Pulse Resp B/P (MAP) Pulse Ox O2 Delivery O2 Flow Rate FiO2 05/26/17 12:00 97.7 79 20 98/61 (73) 97 05/26/17 08:00 97.6 85 19 104/69 (81) 96 05/26/17 07:58 99 21 05/26/17 04:00 97.0 76 16 129/68 (88) 99 05/26/17 03:05 20 05/26/17 00:00 97.9 72 16 125/72 (89) 94 05/25/17 21:37 97.5 71 16 127/65 (85) 97 05/25/17 21:10 97.7 77 24 127/58 (81) 97 Room Air 05/25/17 21:00 82 21 124/58 (80) 99 Room Air 05/25/17 20:45 75 16 131/59 (83) 100 Room Air 05/25/17 20:30 79 12 131/61 (84) 100 Nasal Cannula 2 05/25/17 20:15 77 20 132/59 (83) 100 Nasal Cannula 3 05/25/17 20:00 75 20 152/69 (96) 100 Nasal Cannula 3 05/25/17 19:45 98.1 91 16 142/63 (89) 100 Nasal Cannula 3 05/25/17 17:10 77 16 117/92 (100) 98 Room Air 05/25/17 16:31 98.1 76 20 189/80 (116) 100 I/O 05/25/17 05/25/17 05/25/17 05/26/17 05/26/17 05/26/17 07:00 15:00 23:00 07:00 15:00 23:00 Intake Total 300 ml 240 ml 480 ml Output Total 100 ml Balance 200 ml 240 ml 480 ml Intake Oral 240 ml 480 ml IV Total 300 ml Output Estimated Blood Loss 100 ml # Voids 3 # Bowel Movements 0 Result Diagram: 05/26/17 0605/26/17 06 Objective Remarks GENERAL: This is a well-nourished, well-developed patient, in no apparent distress. HEAD: Atraumatic. Normocephalic. No temporal or scalp tenderness. CARDIOVASCULAR: Regular rate and rhythm without murmurs, gallops, or rubs. RESPIRATORY: Clear to auscultation. Breath sounds equal bilaterally. No wheezes , rales, or rhonchi. GASTROINTESTINAL: Abdomen soft, non-tender, nondistended. No guarding. MUSCULOSKELETAL: Extremities without clubbing, cyanosis, or edema. . No calf tenderness. NEUROLOGICAL: Awake and alert. Motor and sensory grossly within normal limits. Normal speech. Procedures Evacuation of hematoma, right breast, excision of chronic granulation tissue and establishment of hemostasis and packing of wound. A/P Problem List: (1) Anemia ICD Code: D64.9 - Anemia, unspecified Status: Acute (2) Breast infection in female ICD Code: N61.0 - Mastitis without abscess Status: Acute Assessment and Plan Postop bleeding from Right breast implants area status post surgery. Stable continue wound care with wound VAC 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 Has been on outpatient antibiotics. Continue cefoxitin, Tygacil, Biaxin and amikacin. Breast cancer. Status post bilateral mastectomy and bilateral implant placement on December 13, 2016. Status post chemotherapy and radiation therapy. Last chemotherapy was on September 16, 2016. 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 Anemia secondary to acute blood loss. Stable Hyperglycemia DVT prophylaxis with SCD. Discharge Planning For discharge in the morning Drake Armendariz MD May 26, 2017 14:04
[2017-05-26] MEDS: ACETAMINOPHEN/HYDROcodone 325 MG/7.5 MG TAB PO PRN ×2 (14:34→21:08)
[2017-05-26] MEDS ORDERED: BISACODYL 10 MG SUPP RECTAL PRN (14:45)
[2017-05-26] MEDS ORDERED: LACTULOSE SYRUP 20 GM/30 ML CUP PO PRN (14:45)
[2017-05-26] MEDS ORDERED: SENNOSIDES 8.6 MG TAB PO PRN (14:45)
[2017-05-26] MEDS ORDERED: MAGNESIUM HYDROXIDE SUSP 30 ML CUP PO PRN (14:45)
[2017-05-26] MEDS: DOCUSATE SODIUM 50 MG/SENNA 8.6 MG TAB PO SCH ×2 (15:32→21:07)
[2017-05-27] VITALS: BP 108/58; PULSE 79; RESP 17; TEMP 97.9; O2SAT 98
[2017-05-27] MEDS: ACETAMINOPHEN/HYDROcodone 325 MG/7.5 MG TAB PO PRN (04:47)
[2017-05-27] MEDS: SODIUM CHLORIDE IV SCH ×6 (04:48→12:50)
[2017-05-27] MEDS: CEFOXITIN IV SCH ×4 (04:48→12:50)
[2017-05-27] MEDS: ACETAMINOPHEN 500 MG CPLT PO SCH ×2 (04:48→12:00)
[2017-05-27] MEDS: ONDANSETRON HCL 4 MG/2 ML VIAL IV PUSH PRN ×2 (04:52→09:33)
[2017-05-27 07:52] VITALS: BP 104/55; PULSE 74; RESP 20; TEMP 98.3; O2SAT 98
[2017-05-27] MEDS ORDERED: SODIUM CHLORID 0.9% IV SCH (09:00)
[2017-05-27] MEDS ORDERED: AMIKACIN IV SCH (09:00)
[2017-05-27] MEDS: DOCUSATE SODIUM 50 MG/SENNA 8.6 MG TAB PO SCH (09:34)
[2017-05-27] MEDS: CLARITHROMYCIN 500 MG TAB PO SCH (09:34)
[2017-05-27] MEDS: SODIUM CHLORIDE 0.9% FLUSH 10 ML FLUSH IV FLUSH SCH (09:36)
[2017-05-27 11:04] VITALS: BP 147/79; PULSE 86; RESP 20; TEMP 98.1; O2SAT 97
[2017-05-27] MEDS: TIGECYCLINE IV SCH ×2 (11:40)
--- NOTE | 2017-05-27 13:05 | HHI.PR ---
Subjective Remarks Follow-up postop bleeding and infection right breast. She is doing okay wants to go home refusing home health care. Discussed with nursing and case management Objective Vitals Vital Signs Date Time Temp Pulse Resp B/P (MAP) Pulse Ox O2 Delivery O2 Flow Rate FiO2 05/27/17 11:04 98.1 86 20 147/79 (101) 97 05/27/17 07:52 98.3 74 20 104/55 (71) 98 05/27/17 00:00 97.9 79 17 108/58 (75) 98 05/26/17 20:00 98.2 88 17 100/59 (73) 98 05/26/17 16:00 99.2 93 20 100 I/O 05/26/17 05/26/17 05/26/17 05/27/17 05/27/17 05/27/17 07:00 15:00 23:00 07:00 15:00 23:00 Intake Total 240 ml 780 ml 1060 ml 240 ml 240 ml Output Total 700 ml 100 ml Balance 240 ml 780 ml 360 ml 140 ml 240 ml Intake Oral 240 ml 480 ml 960 ml 240 ml 240 ml IV Total 300 ml 100 ml Output Urine Total 700 ml Emesis 100 ml Drainage Total 0 ml # Voids 3 2 # Bowel Movements 0 1 Result Diagram: 05/26/17 0600 05/26/17 0600 Objective Remarks GENERAL: This is a well-nourished, well-developed patient, in no apparent distress. HEAD: Atraumatic. Normocephalic. No temporal or scalp tenderness. CARDIOVASCULAR: Regular rate and rhythm without murmurs, gallops, or rubs. RESPIRATORY: Clear to auscultation. Breath sounds equal bilaterally. No wheezes , rales, or rhonchi. GASTROINTESTINAL: Abdomen soft, non-tender, nondistended. No guarding. MUSCULOSKELETAL: Extremities without clubbing, cyanosis, or edema. . No calf tenderness. NEUROLOGICAL: Awake and alert. Motor and sensory grossly within normal limits. Normal speech. Procedures Evacuation of hematoma, right breast, excision of chronic granulation tissue and establishment of hemostasis and packing of wound. A/P Problem List: (1) Anemia ICD Code: D64.9 - Anemia, unspecified Status: Acute (2) Breast infection in female ICD Code: N61.0 - Mastitis without abscess Status: Acute Assessment and Plan Postop bleeding from Right breast implants area status post surgery. Stable continue wound care with wound VAC 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 Has been on outpatient antibiotics. Continue cefoxitin, Tygacil, Biaxin and amikacin. Breast cancer. Status post bilateral mastectomy and bilateral implant placement on December 13, 2016. Status post chemotherapy and radiation therapy. Last chemotherapy was on September 16, 2016. 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 Anemia secondary to acute blood loss. Stable Hyperglycemia prior A1c 5.7. Continue to monitor DVT prophylaxis with SCD. Discharge Planning Discharge patient to home Condition on discharge: Improved Regular Diet as tolerated Ad Justyna activity no driving Rx written: None Follow-up with primary care physician, plastic surgery, wound care physician, infectious disease and oncology Drake Armendariz MD May 27, 2017 13:05
== END 2017-05-27 13:26 | disposition home health service (06) | DRG 908 ==
LOC: NEPD 16:26 → NEDA 17:55 → N07B 21:24
PROVIDERS: ADMIT Internal Medicine; ATTEND Internal Medicine
PROC: 0HCT0ZZ Extirpation of Matter from Right Breast, Open Approach (ICD-10-PCS; 2017-05-25)
PROC: 0HBT0ZZ Excision of Right Breast, Open Approach (ICD-10-PCS; principal; 2017-05-25 18:37)
DX: M96.841 Postprocedural hematoma of a musculoskeletal structure following other procedure (principal); L76.22 Postprocedural hemorrhage of skin and subcutaneous tissue following other procedure; C50.911 Malignant neoplasm of unspecified site of right female breast; T85.79XA Infection and inflammatory reaction due to other internal prosthetic devices, implants and grafts, initial encounter; A31.9 Mycobacterial infection, unspecified; D62 Acute posthemorrhagic anemia; M19.90 Unspecified osteoarthritis, unspecified site; H91.90 Unspecified hearing loss, unspecified ear; Y84.8 Other medical procedures as the cause of abnormal reaction of the patient, or of later complication, without mention of misadventure at the time of the procedure; R73.9 Hyperglycemia, unspecified; Z17.1 Estrogen receptor negative status [ER-]; Z85.3 Personal history of malignant neoplasm of breast; Z88.0 Allergy status to penicillin; Z92.21 Personal history of antineoplastic chemotherapy; Z90.13 Acquired absence of bilateral breasts and nipples; Z92.3 Personal history of irradiation
CPT/HCPCS: 80048; 80053; 85014; 85018; 85025; 85610; 85730; 86850; 86900; 86901; 86920; 87015; 87070; 87102; 87116; 87176; 87205; 87206; 96361; 96374; J0131; J0330; J0690; J0694; J1100; J1580; J2175; J2270; J2405; J3243; J7030; J7121

== ENCOUNTER → 2017-05-31 | Outpatient (CLI) | payer OTHER ==
[~2017-05-31] MED LIST changes: -DEXAMETHASONE SOD PHOS 4 MG/ML VIAL IV ONE; -LIDOCAINE HCL 1% PF 5 ML SYRINGE OTHER ONE; -ONDANSETRON HCL 4 MG/2 ML VIAL IV ONE; -PROPOFOL 200 MG/20 ML AMP IV ONE; -SUCCINYLCHOLINE CHLORIDE 200 MG/10 ML VIAL IV ONE; +[UNRECOGNIZED DRUG - OTHER] IV
[2017-05-31 14:35] LABS: AUTOMATED NEUTROPHIL # 6.4 TH/MM3 (1.8-7.7); BASOPHIL # 0.1 TH/MM3 (0-0.2); BASOPHIL % 0.7 % (0.0-2.0); EOSINOPHIL # 0.2 TH/MM3 (0-0.4); HEMATOCRIT 28.1 % (35.0-46.0); HEMOGLOBIN 9.5 GM/DL (11.6-15.3); LYMPH % 15.3 % (9.0-44.0); LYMPHOCYTE # 1.4 TH/MM3 (1.0-4.8); MEAN CELL VOLUME 88.6 FL (80.0-100.0); MEAN CORPUSCULAR HGB CONC 33.9 % (32.0-36.0); MEAN PLATELET VOLUME 7.5 FL (7.0-11.0); MONO % 9.4 % (0.0-8.0); MONOCYTE # 0.8 TH/MM3 (0-0.9); NEUT % 72.6 % (16.0-70.0); PLATELET COUNT 259 TH/MM3 (150-450); RED BLOOD COUNT 3.17 MIL/MM3 (4.00-5.30); WHITE BLOOD COUNT 8.8 TH/MM3 (4.0-11.0)
[2017-05-31 14:55] LABS: ALBUMIN 2.8 GM/DL (3.4-5.0); ALT (GPT) 24 U/L (10-53); AST (GOT) 14 U/L (15-37); BICARBONATE 27.3 MEQ/L (21.0-32.0); BLOOD UREA NITROGEN 16 MG/DL (7-18); CALCIUM 8.3 MG/DL (8.5-10.1); CHLORIDE 104 MEQ/L (98-107); CREATININE 0.68 MG/DL (0.50-1.00); GLOMERULAR FILTRATION RATE 92 ML/MIN (>89); GLUCOSE,FASTING 100 MG/DL (74-99); SODIUM (NA) 138 MEQ/L (136-145)
[2017-05-31 14:57] LABS: ALKALINE PHOSPHATASE 87 U/L (45-117); TOTAL BILIRUBIN ADULT 0.3 MG/DL (0.2-1.0); TOTAL PROTEIN 6.4 GM/DL (6.4-8.2)
== END ==
LOC: CLAB 13:56
PROVIDERS: ATTEND Internal Medicine Hematology & Oncology
DX: C50.411 Malignant neoplasm of upper-outer quadrant of right female breast (principal); A31.8 Other mycobacterial infections
CPT/HCPCS: 36415; 80053; 80150; 83735; 85025; 86300

== ENCOUNTER → 2017-06-15 | Outpatient (CLI) | payer OTHER ==
[2017-06-15 13:40] LABS: AUTOMATED NEUTROPHIL # 4.6 TH/MM3 (1.8-7.7); BASOPHIL # 0.1 TH/MM3 (0-0.2); BASOPHIL % 0.8 % (0.0-2.0); EOSINOPHIL # 0.2 TH/MM3 (0-0.4); EOSINOPHIL % 2.6 % (0.0-4.0); HEMATOCRIT 27.5 % (35.0-46.0); HEMOGLOBIN 9.8 GM/DL (11.6-15.3); LYMPH % 18.6 % (9.0-44.0); LYMPHOCYTE # 1.2 TH/MM3 (1.0-4.8); MEAN CELL VOLUME 89.6 FL (80.0-100.0); MEAN CORPUSCULAR HGB CONC 35.7 % (32.0-36.0); MEAN PLATELET VOLUME 7.4 FL (7.0-11.0); MONO % 8.1 % (0.0-8.0); MONOCYTE # 0.5 TH/MM3 (0-0.9); NEUT % 69.9 % (16.0-70.0); PLATELET COUNT 349 TH/MM3 (150-450); RED BLOOD COUNT 3.07 MIL/MM3 (4.00-5.30); RED CELL DISTRIBUTION WIDTH 14.2 % (11.6-17.2); WHITE BLOOD COUNT 6.6 TH/MM3 (4.0-11.0)
[2017-06-15 14:31] LABS: AST (GOT) 17 U/L (15-37); BICARBONATE 26.5 MEQ/L (21.0-32.0); BLOOD UREA NITROGEN 15 MG/DL (7-18); CALCIUM 8.9 MG/DL (8.5-10.1); CHLORIDE 102 MEQ/L (98-107); CREATININE 0.72 MG/DL (0.50-1.00); GLOMERULAR FILTRATION RATE 86 ML/MIN (>89); GLUCOSE,FASTING 97 MG/DL (74-99); MAGNESIUM 2.1 MG/DL (1.5-2.5); SODIUM (NA) 136 MEQ/L (136-145)
[2017-06-15 14:32] LABS: ALT (GPT) 25 U/L (10-53)
[2017-06-15 14:35] LABS: ALKALINE PHOSPHATASE 74 U/L (45-117); TOTAL BILIRUBIN ADULT 0.4 MG/DL (0.2-1.0); TOTAL PROTEIN 6.9 GM/DL (6.4-8.2)
== END ==
LOC: CLAB 13:10
PROVIDERS: ATTEND Internal Medicine Hematology & Oncology
DX: A31.8 Other mycobacterial infections (principal)
CPT/HCPCS: 36415; 80053; 80150; 83735; 85025

== ENCOUNTER → 2017-06-22 | Outpatient (CLI) | payer OTHER ==
[2017-06-22 14:21] LABS: AUTOMATED NEUTROPHIL # 3.8 TH/MM3 (1.8-7.7); BASOPHIL # 0.1 TH/MM3 (0-0.2); BASOPHIL % 1.1 % (0.0-2.0); EOSINOPHIL # 0.3 TH/MM3 (0-0.4); HEMATOCRIT 30.1 % (35.0-46.0); HEMOGLOBIN 10.4 GM/DL (11.6-15.3); LYMPH % 21.1 % (9.0-44.0); LYMPHOCYTE # 1.2 TH/MM3 (1.0-4.8); MEAN CELL VOLUME 89.2 FL (80.0-100.0); MEAN CORPUSCULAR HEMOGLOBIN 30.9 PG (27.0-34.0); MEAN CORPUSCULAR HGB CONC 34.6 % (32.0-36.0); MEAN PLATELET VOLUME 7.3 FL (7.0-11.0); MONO % 7.3 % (0.0-8.0); MONOCYTE # 0.4 TH/MM3 (0-0.9); NEUT % 65.5 % (16.0-70.0); PLATELET COUNT 406 TH/MM3 (150-450); RED BLOOD COUNT 3.37 MIL/MM3 (4.00-5.30); RED CELL DISTRIBUTION WIDTH 13.4 % (11.6-17.2); RETIC # 69.1 MIL/L (20.0-150.0); RETIC % 2.1 % (0.4-3.0); WHITE BLOOD COUNT 5.8 TH/MM3 (4.0-11.0)
[2017-06-22 14:44] LABS: ALBUMIN 3.2 GM/DL (3.4-5.0); ALT (GPT) 27 U/L (10-53); AST (GOT) 33 U/L (15-37); BICARBONATE 29.2 MEQ/L (21.0-32.0); BLOOD UREA NITROGEN 9 MG/DL (7-18); CALCIUM 9.1 MG/DL (8.5-10.1); CHLORIDE 103 MEQ/L (98-107); CREATININE 1.47 MG/DL (0.50-1.00); GLOMERULAR FILTRATION RATE 38 ML/MIN (>89); GLUCOSE,FASTING 96 MG/DL (74-99); MAGNESIUM 1.9 MG/DL (1.5-2.5); SODIUM (NA) 140 MEQ/L (136-145)
[2017-06-22 14:47] LABS: ALKALINE PHOSPHATASE 75 U/L (45-117); TOTAL BILIRUBIN ADULT 0.4 MG/DL (0.2-1.0); TOTAL PROTEIN 7.4 GM/DL (6.4-8.2)
== END ==
LOC: CLAB 13:48
PROVIDERS: ATTEND Internal Medicine Hematology & Oncology
DX: C50.411 Malignant neoplasm of upper-outer quadrant of right female breast (principal); A31.8 Other mycobacterial infections
CPT/HCPCS: 36415; 80053; 80150; 83615; 83735; 85025; 85044

== ENCOUNTER → 2017-06-23 | Outpatient (CLI) | payer OTHER ==
[2017-06-23 14:00] LABS: BICARBONATE 27.7 MEQ/L (21.0-32.0); CALCIUM 9.3 MG/DL (8.5-10.1); CREATININE 0.85 MG/DL (0.50-1.00)
[2017-06-23 14:17] LABS: BILIRUBIN, URINE NEG (NEG); BLOOD, URINE SMALL (NEG); GLUCOSE,URINE NEG (NEG); KETONE, URINE TRACE mg/dL (NEG); MUCUS URINE FEW /lpf (OCC); NITRITE,URINE NEG (NEG); PH, URINE 5.5 (5.0-8.5); SQUAMOUS EPITHELIAL CELL URINE 1 /hpf (0-5); URINE COLOR YELLOW (YELLW/STRAW); URINE LEUKOCYTE ESTERASE NEG (NEG)
== END ==
LOC: CLAB 13:04
PROVIDERS: ATTEND Internal Medicine Infectious Disease
DX: A31.8 Other mycobacterial infections (principal)
CPT/HCPCS: 36415; 80048; 81001; 87205

== ENCOUNTER 2017-06-27 13:47 | Day surgery (SDC) | payer OTHER ==
[2017-06-27 15:00] VITALS: BP 122/67; PULSE 86; RESP 20; TEMP 98; O2SAT 94
[2017-06-27] MEDS ORDERED: LIDOCAINE 1%/EPINEPHrine 1:100,000 SOLN 20 ML VIAL ONE (15:13)
[2017-06-27 16:00] VITALS: BP 119/66; PULSE 102; RESP 18; TEMP 98.1; O2SAT 99
--- NOTE | 2017-06-27 16:58 | RADRPT ---
EXAM DATE/TIME: 06/27/2017 15:49 [place] COMPARISON: No previous studies available for comparison. INDICATIONS : Patient with a history of right breast cancer, and infection. MEDICAL HISTORY : Right breast cancer SURGICAL HISTORY : Mastectomy ENCOUNTER: Subsequent ACUITY: 4-6 months PAIN SCORE: 10/10 LOCATION: Right upper quadrant FLUORO TIME: 2.07 minutes IMAGE SERIES: 1 ACCESS: Left internal jugular vein DEVICE: 1. 5 Pakistani single lumen 30.5 cm Power Tunnelled PICC PROCEDURE : 1. Ultrasound-guided puncture of the prescribed vein. 2. Fluoroscopic guidance. 3. Tunneled PICC catheter placement 4. Conscious sedation with continuous EKG and oximetry monitoring. The risks, benefits and alternatives to the procedure were explained and verbal and written consent w as obtained. The site was prepped in sterile fashion. Full sterile technique was used, including ca p, mask, sterile gloves and gown and a large sterile sheet. Hand hygiene and 2% chlorhexidine Betadi ne was utilized per protocol for cutaneous antisepsis with appropriate dry time for site. Sterile ge l and sterile probe cover were utilized for ultrasound guidance. The skin and subcutaneous tissues w ere infiltrated with local anesthetic solution. With ultrasound and fluoroscopic guidance a dermatotomy was created in the supraclavicular region. A micropuncture set was used to access to the prescribed vein and serial dilatation was performed to a ccept a 5 Pakistani tunneled PICC catheter. A subcutaneous tunnel was created and in antegrade fashion the catheter was pulled through the tunnel, cut to the appropriate length and place through the sheat h. The catheter was locked with heparin and sutured in place. Conscious sedation was performed with the prescribed dosages and duration as above in the presence of an independent trained radiology nurse to assist in the monitoring of the patient. EKG and oximetry remained stable throughout the procedure. The patient tolerated the procedure well and there were no complications. The patient was sent to post anesthesia recovery in stable condition. CONCLUSION: Uncomplicated tunneled PICC line catheter placement as above. Aston Eisenberg MD on June 27, 2017 at 16:55 Board Certified Radiologist. This report was verified electronically.
== END 2017-06-27 16:25 | disposition home or self-care (01) ==
LOC: HROP 13:47 → HRIP 13:49 → HROP 16:25
PROVIDERS: ATTEND Internal Medicine Infectious Disease
DX: N61.1 Abscess of the breast and nipple (principal); A31.8 Other mycobacterial infections; C50.411 Malignant neoplasm of upper-outer quadrant of right female breast
CPT/HCPCS: 36558; 76937; 77001; C1751; J1642

== ENCOUNTER → 2017-06-27 | Outpatient (CLI) | payer OTHER ==
[2017-06-27 11:12] LABS: AUTOMATED NEUTROPHIL # 4.8 TH/MM3 (1.8-7.7); BASOPHIL # 0.1 TH/MM3 (0-0.2); BASOPHIL % 0.8 % (0.0-2.0); EOSINOPHIL # 0.2 TH/MM3 (0-0.4); HEMATOCRIT 28.2 % (35.0-46.0); HEMOGLOBIN 9.8 GM/DL (11.6-15.3); LYMPH % 15.4 % (9.0-44.0); MEAN CELL VOLUME 88.6 FL (80.0-100.0); MEAN CORPUSCULAR HEMOGLOBIN 30.8 PG (27.0-34.0); MEAN CORPUSCULAR HGB CONC 34.7 % (32.0-36.0); MEAN PLATELET VOLUME 7.5 FL (7.0-11.0); MONO % 9.3 % (0.0-8.0); MONOCYTE # 0.6 TH/MM3 (0-0.9); NEUT % 71.5 % (16.0-70.0); PLATELET COUNT 383 TH/MM3 (150-450); RED BLOOD COUNT 3.19 MIL/MM3 (4.00-5.30); RED CELL DISTRIBUTION WIDTH 13.2 % (11.6-17.2); WHITE BLOOD COUNT 6.7 TH/MM3 (4.0-11.0)
[2017-06-27 11:33] LABS: ALT (GPT) 31 U/L (10-53)
[2017-06-27 11:36] LABS: ALKALINE PHOSPHATASE 76 U/L (45-117); TOTAL BILIRUBIN ADULT 0.2 MG/DL (0.2-1.0); TOTAL PROTEIN 7.1 GM/DL (6.4-8.2)
[2017-06-27 11:40] LABS: ALBUMIN 3.1 GM/DL (3.4-5.0); AST (GOT) 27 U/L (15-37); BICARBONATE 26.7 MEQ/L (21.0-32.0); BLOOD UREA NITROGEN 10 MG/DL (7-18); CALCIUM 9.1 MG/DL (8.5-10.1); CHLORIDE 105 MEQ/L (98-107); CREATININE 0.82 MG/DL (0.50-1.00); GLOMERULAR FILTRATION RATE 74 ML/MIN (>89); GLUCOSE,FASTING 94 MG/DL (74-99); MAGNESIUM 1.9 MG/DL (1.5-2.5); SODIUM (NA) 140 MEQ/L (136-145)
== END ==
LOC: MERGE 10:00 → CLAB 10:00
PROVIDERS: ATTEND Internal Medicine Hematology & Oncology
DX: C50.411 Malignant neoplasm of upper-outer quadrant of right female breast (principal); A31.8 Other mycobacterial infections
CPT/HCPCS: 36415; 80053; 80150; 83735; 85025

== ENCOUNTER 2017-06-29 11:48 | Day surgery (SDC) | payer OTHER ==
[~2017-06-29 11:48] MED LIST changes: -SOLU250I IV PUSH
[2017-06-29 12:00] VITALS: BP 119/75; PULSE 88; RESP 16; TEMP 97.7; O2SAT 99
== END 2017-06-29 13:30 | disposition home or self-care (01) ==
LOC: HRIP 11:48 → HROP 11:48
PROVIDERS: ATTEND Internal Medicine Infectious Disease
DX: Z45.2 Encounter for adjustment and management of vascular access device (principal); C50.411 Malignant neoplasm of upper-outer quadrant of right female breast
CPT/HCPCS: 99211; G0463

== ENCOUNTER → 2017-07-04 | Outpatient (CLI) | payer OTHER ==
[~2017-07-04] MED LIST changes: -EPIN1INJ21 SQ; -[UNRECOGNIZED DRUG - CODE] IV
[2017-07-04 12:15] LABS: AUTOMATED NEUTROPHIL # 5.9 TH/MM3 (1.8-7.7); BASOPHIL # 0.1 TH/MM3 (0-0.2); BASOPHIL % 0.7 % (0.0-2.0); EOSINOPHIL # 0.2 TH/MM3 (0-0.4); EOSINOPHIL % 2.8 % (0.0-4.0); HEMATOCRIT 29.6 % (35.0-46.0); LYMPH % 15.6 % (9.0-44.0); LYMPHOCYTE # 1.2 TH/MM3 (1.0-4.8); MEAN CELL VOLUME 88.7 FL (80.0-100.0); MEAN CORPUSCULAR HGB CONC 33.8 % (32.0-36.0); MEAN PLATELET VOLUME 7.3 FL (7.0-11.0); MONO % 6.9 % (0.0-8.0); MONOCYTE # 0.5 TH/MM3 (0-0.9); PLATELET COUNT 468 TH/MM3 (150-450); RED BLOOD COUNT 3.34 MIL/MM3 (4.00-5.30); RED CELL DISTRIBUTION WIDTH 12.6 % (11.6-17.2); WHITE BLOOD COUNT 7.9 TH/MM3 (4.0-11.0)
[2017-07-04 12:39] LABS: ALBUMIN 3.3 GM/DL (3.4-5.0); AST (GOT) 14 U/L (15-37); BICARBONATE 26.5 MEQ/L (21.0-32.0); BLOOD UREA NITROGEN 14 MG/DL (7-18); CALCIUM 9.6 MG/DL (8.5-10.1); CHLORIDE 103 MEQ/L (98-107); CREATININE 0.82 MG/DL (0.50-1.00); GLOMERULAR FILTRATION RATE 74 ML/MIN (>89); GLUCOSE,FASTING 97 MG/DL (74-99); SODIUM (NA) 139 MEQ/L (136-145)
[2017-07-04 12:40] LABS: ALT (GPT) 22 U/L (10-53)
[2017-07-04 12:42] LABS: ALKALINE PHOSPHATASE 82 U/L (45-117); TOTAL BILIRUBIN ADULT 0.4 MG/DL (0.2-1.0); TOTAL PROTEIN 7.8 GM/DL (6.4-8.2)
== END ==
LOC: CLAB 11:29
PROVIDERS: ATTEND Internal Medicine Infectious Disease
DX: A31.8 Other mycobacterial infections (principal)
CPT/HCPCS: 36415; 80053; 80150; 83735; 85025

== ENCOUNTER → 2017-07-12 | Outpatient (CLI) | payer OTHER ==
[2017-07-12 15:42] LABS: HEMATOCRIT 27.4 % (35.0-46.0); HEMOGLOBIN 9.1 GM/DL (11.6-15.3); MEAN CELL VOLUME 87.3 FL (80.0-100.0); MEAN CORPUSCULAR HEMOGLOBIN 29.2 PG (27.0-34.0); MEAN CORPUSCULAR HGB CONC 33.4 % (32.0-36.0); MEAN PLATELET VOLUME 7.6 FL (7.0-11.0); PLATELET COUNT 489 TH/MM3 (150-450); RED BLOOD COUNT 3.14 MIL/MM3 (4.00-5.30); RED CELL DISTRIBUTION WIDTH 12.3 % (11.6-17.2); WHITE BLOOD COUNT 7.6 TH/MM3 (4.0-11.0)
[2017-07-12 16:05] LABS: ALBUMIN 2.9 GM/DL (3.4-5.0); ALT (GPT) 18 U/L (10-53); AST (GOT) 17 U/L (15-37); BICARBONATE 28.5 MEQ/L (21.0-32.0); BLOOD UREA NITROGEN 13 MG/DL (7-18); CHLORIDE 103 MEQ/L (98-107); CREATININE 0.91 MG/DL (0.50-1.00); GLOMERULAR FILTRATION RATE 65 ML/MIN (>89); GLUCOSE,FASTING 109 MG/DL (74-99); SODIUM (NA) 140 MEQ/L (136-145)
[2017-07-12 16:07] LABS: ALKALINE PHOSPHATASE 92 U/L (45-117); TOTAL BILIRUBIN ADULT 0.2 MG/DL (0.2-1.0); TOTAL PROTEIN 7.5 GM/DL (6.4-8.2)
== END ==
LOC: CLAB 14:56
PROVIDERS: ATTEND Internal Medicine Infectious Disease
DX: A31.8 Other mycobacterial infections (principal); B96.5 Pseudomonas (aeruginosa) (mallei) (pseudomallei) as the cause of diseases classified elsewhere
CPT/HCPCS: 36415; 80053; 80150; 83735; 85027; 87015; 87070; 87077; 87116; 87186; 87205; 87206

== ENCOUNTER → 2017-07-18 | Outpatient (CLI) | payer OTHER ==
[2017-07-18 13:27] LABS: HEMATOCRIT 29.1 % (35.0-46.0); HEMOGLOBIN 9.7 GM/DL (11.6-15.3); MEAN CELL VOLUME 87.4 FL (80.0-100.0); MEAN CORPUSCULAR HEMOGLOBIN 29.2 PG (27.0-34.0); MEAN CORPUSCULAR HGB CONC 33.4 % (32.0-36.0); PLATELET COUNT 510 TH/MM3 (150-450); RED BLOOD COUNT 3.33 MIL/MM3 (4.00-5.30); RED CELL DISTRIBUTION WIDTH 12.4 % (11.6-17.2); WHITE BLOOD COUNT 6.3 TH/MM3 (4.0-11.0)
[2017-07-18 13:43] LABS: ALBUMIN 3.1 GM/DL (3.4-5.0); AST (GOT) 15 U/L (15-37); BICARBONATE 24.7 MEQ/L (21.0-32.0); BLOOD UREA NITROGEN 15 MG/DL (7-18); CALCIUM 8.9 MG/DL (8.5-10.1); CHLORIDE 108 MEQ/L (98-107); CREATININE 0.86 MG/DL (0.50-1.00); GLOMERULAR FILTRATION RATE 70 ML/MIN (>89); GLUCOSE,FASTING 96 MG/DL (74-99); MAGNESIUM 2.2 MG/DL (1.5-2.5); SODIUM (NA) 142 MEQ/L (136-145)
[2017-07-18 13:44] LABS: ALT (GPT) 18 U/L (10-53)
[2017-07-18 13:46] LABS: ALKALINE PHOSPHATASE 76 U/L (45-117); TOTAL BILIRUBIN ADULT 0.1 MG/DL (0.2-1.0); TOTAL PROTEIN 7.6 GM/DL (6.4-8.2)
== END ==
LOC: CLAB 12:42
PROVIDERS: ATTEND Internal Medicine Hematology & Oncology
DX: A31.8 Other mycobacterial infections (principal)
CPT/HCPCS: 36415; 80053; 83735; 85027

== ENCOUNTER → 2017-07-26 | Outpatient (CLI) | payer OTHER ==
[2017-07-26 12:59] LABS: HEMATOCRIT 31.6 % (35.0-46.0); HEMOGLOBIN 10.7 GM/DL (11.6-15.3); MEAN CELL VOLUME 87.1 FL (80.0-100.0); MEAN CORPUSCULAR HEMOGLOBIN 29.5 PG (27.0-34.0); MEAN CORPUSCULAR HGB CONC 33.9 % (32.0-36.0); PLATELET COUNT 344 TH/MM3 (150-450); RED BLOOD COUNT 3.63 MIL/MM3 (4.00-5.30); RED CELL DISTRIBUTION WIDTH 13.1 % (11.6-17.2); WHITE BLOOD COUNT 6.1 TH/MM3 (4.0-11.0)
[2017-07-26 13:28] LABS: ALKALINE PHOSPHATASE 72 U/L (45-117); TOTAL BILIRUBIN ADULT 0.3 MG/DL (0.2-1.0); TOTAL PROTEIN 7.5 GM/DL (6.4-8.2)
[2017-07-26 13:31] LABS: ALBUMIN 3.5 GM/DL (3.4-5.0); ALT (GPT) 25 U/L (10-53); AST (GOT) 24 U/L (15-37); BICARBONATE 26.2 MEQ/L (21.0-32.0); BLOOD UREA NITROGEN 19 MG/DL (7-18); CALCIUM 8.9 MG/DL (8.5-10.1); CHLORIDE 105 MEQ/L (98-107); CREATININE 1.07 MG/DL (0.50-1.00); GLOMERULAR FILTRATION RATE 54 ML/MIN (>89); GLUCOSE,FASTING 91 MG/DL (74-99); MAGNESIUM 2.1 MG/DL (1.5-2.5); SODIUM (NA) 140 MEQ/L (136-145)
== END ==
LOC: CLAB 12:32
PROVIDERS: ATTEND Internal Medicine Hematology & Oncology
DX: A31.8 Other mycobacterial infections (principal)
CPT/HCPCS: 36415; 80053; 83735; 85027

== ENCOUNTER → 2017-08-03 | Outpatient (CLI) | payer OTHER ==
[2017-08-03 12:21] LABS: HEMATOCRIT 32.2 % (35.0-46.0); HEMOGLOBIN 10.7 GM/DL (11.6-15.3); MEAN CELL VOLUME 87.3 FL (80.0-100.0); MEAN CORPUSCULAR HEMOGLOBIN 29.1 PG (27.0-34.0); MEAN CORPUSCULAR HGB CONC 33.4 % (32.0-36.0); MEAN PLATELET VOLUME 7.4 FL (7.0-11.0); PLATELET COUNT 288 TH/MM3 (150-450); RED BLOOD COUNT 3.69 MIL/MM3 (4.00-5.30); RED CELL DISTRIBUTION WIDTH 14.6 % (11.6-17.2); WHITE BLOOD COUNT 6.2 TH/MM3 (4.0-11.0)
[2017-08-03 12:44] LABS: ALBUMIN 3.8 GM/DL (3.4-5.0); AST (GOT) 17 U/L (15-37); BICARBONATE 24.1 MEQ/L (21.0-32.0); BLOOD UREA NITROGEN 16 MG/DL (7-18); CALCIUM 9.4 MG/DL (8.5-10.1); CHLORIDE 106 MEQ/L (98-107); CREATININE 1.14 MG/DL (0.50-1.00); GLOMERULAR FILTRATION RATE 50 ML/MIN (>89); GLUCOSE,FASTING 91 MG/DL (74-99); SODIUM (NA) 140 MEQ/L (136-145)
[2017-08-03 12:46] LABS: ALKALINE PHOSPHATASE 67 U/L (45-117); ALT (GPT) 22 U/L (10-53); TOTAL BILIRUBIN ADULT 0.6 MG/DL (0.2-1.0); TOTAL PROTEIN 7.6 GM/DL (6.4-8.2)
[2017-08-03 12:48] LABS: BILIRUBIN, URINE NEG (NEG); BLOOD, URINE NEG (NEG); GLUCOSE,URINE NEG (NEG); HYALINE CAST, URINE 19 /lpf (RARE); KETONE, URINE TRACE mg/dL (NEG); MUCUS URINE FEW /lpf (OCC); NITRITE,URINE NEG (NEG); SQUAMOUS EPITHELIAL CELL URINE 1 /hpf (0-5); URINE COLOR YELLOW (YELLW/STRAW); URINE LEUKOCYTE ESTERASE TRACE (NEG)
== END ==
LOC: CLAB 11:41
PROVIDERS: ATTEND Internal Medicine Infectious Disease
DX: A31.8 Other mycobacterial infections (principal)
CPT/HCPCS: 36415; 80053; 81001; 83735; 85027; 87205

== ENCOUNTER → 2017-08-05 | Outpatient (CLI) | payer OTHER ==
[2017-08-05 18:27] LABS: ALBUMIN 3.6 GM/DL (3.4-5.0); ALKALINE PHOSPHATASE 63 U/L (45-117); ALT (GPT) 26 U/L (10-53); AST (GOT) 26 U/L (15-37); BICARBONATE 25.1 MEQ/L (21.0-32.0); BLOOD UREA NITROGEN 16 MG/DL (7-18); CALCIUM 8.6 MG/DL (8.5-10.1); CHLORIDE 110 MEQ/L (98-107); CREATININE 1.05 MG/DL (0.50-1.00); GLOMERULAR FILTRATION RATE 55 ML/MIN (>89); GLUCOSE,FASTING 101 MG/DL (74-99); SODIUM (NA) 143 MEQ/L (136-145); TOTAL BILIRUBIN ADULT 0.3 MG/DL (0.2-1.0); TOTAL PROTEIN 7.3 GM/DL (6.4-8.2)
== END ==
LOC: CLAB 13:49
PROVIDERS: ATTEND Orthopaedic Surgery
DX: A31.8 Other mycobacterial infections (principal)
CPT/HCPCS: 36415; 80053

== ENCOUNTER → 2017-08-08 | Outpatient (CLI) | payer OTHER ==
[2017-08-08 10:33] LABS: HEMATOCRIT 31.1 % (35.0-46.0); HEMOGLOBIN 10.5 GM/DL (11.6-15.3); MEAN CORPUSCULAR HEMOGLOBIN 29.8 PG (27.0-34.0); MEAN CORPUSCULAR HGB CONC 33.8 % (32.0-36.0); MEAN PLATELET VOLUME 7.6 FL (7.0-11.0); PLATELET COUNT 209 TH/MM3 (150-450); RED BLOOD COUNT 3.53 MIL/MM3 (4.00-5.30); RED CELL DISTRIBUTION WIDTH 14.9 % (11.6-17.2); WHITE BLOOD COUNT 4.9 TH/MM3 (4.0-11.0)
[2017-08-08 11:34] LABS: ALBUMIN 3.7 GM/DL (3.4-5.0); AST (GOT) 22 U/L (15-37); BICARBONATE 25.9 MEQ/L (21.0-32.0); BLOOD UREA NITROGEN 18 MG/DL (7-18); CALCIUM 8.9 MG/DL (8.5-10.1); CHLORIDE 103 MEQ/L (98-107); CREATININE 1.16 MG/DL (0.50-1.00); GLOMERULAR FILTRATION RATE 49 ML/MIN (>89); SODIUM (NA) 138 MEQ/L (136-145)
[2017-08-08 11:35] LABS: GLUCOSE,FASTING 101 MG/DL (74-99)
[2017-08-08 11:38] LABS: ALKALINE PHOSPHATASE 60 U/L (45-117); ALT (GPT) 22 U/L (10-53); TOTAL BILIRUBIN ADULT 0.4 MG/DL (0.2-1.0); TOTAL PROTEIN 7.4 GM/DL (6.4-8.2)
== END ==
LOC: CLAB 09:52
PROVIDERS: ATTEND Internal Medicine Infectious Disease
DX: A31.8 Other mycobacterial infections (principal)
CPT/HCPCS: 36415; 80053; 83735; 85027

== ENCOUNTER → 2017-08-10 | Outpatient (CLI) | payer OTHER ==
[2017-08-10 12:40] LABS: BICARBONATE 28.8 MEQ/L (21.0-32.0); CALCIUM 8.7 MG/DL (8.5-10.1); CREATININE 0.96 MG/DL (0.50-1.00)
== END ==
LOC: CLAB 11:50
PROVIDERS: ATTEND Internal Medicine Infectious Disease
DX: N17.9 Acute kidney failure, unspecified (principal)
CPT/HCPCS: 36415; 80048; 87205